=== PATIENT | female | born 1965 | race Caucasian/White ===

== ENCOUNTER 2016-08-11 10:53 | Observation (INO) | payer MEDICARE ==
[2016-08-11] MEDS ORDERED: Sodium Chloride 0.9% 1000 ML 1,000 ML IV SCH (11:30)
[2016-08-11] MEDS: DILAUDID 2 MG INJECTION IV PRN ×3 (11:35→20:49)
[2016-08-11] MEDS: Phenergan 25 MG INJ IV PRN ×2 (11:41→18:09)
[2016-08-11] MEDS ORDERED: NON-FORMULARY ITEM (Gabapentin [Gabapentin] 800 MG) PO PRN (12:15)
[2016-08-11] MEDS ORDERED: PHENERGAN 25 MG PO PRN (12:15)
[2016-08-11] MEDS ORDERED: Neurontin 400 MG PO PRN (12:23)
[2016-08-11] MEDS: solu-MEDROL 40 MG IV SCH ×2 (12:59→21:14)
[2016-08-11] MEDS: Ativan 1 MG PO PRN (12:59)
[2016-08-11 13:19] LABS: BASOPHIL % 0.2 % (0.0-0.4); Eosinophil % 1.9 % (0.00-5.0); Granulocytes % 68.2 % (36.0-66.0); Mean Cell Volume 83.7 fl (78-100); Mean Corpuscular Hemoglobin 27.7 pg (26-32); Mean Platelet Volume 11.4 fl (6-9.5); Monocytes % 5.7 % (0.0-12.0); Platelet Count 227 K/mm3 (150-450); Red Blood Count 5.45 M/mm3 (4.1-5.4); Red Cell Distribution Width 15.3 % (11.5-14.0)
[2016-08-11 13:23] LABS: ALBUMIN 4.1 g/dL (3.4-5.0); ALKALINE PHOSPHATASE 72 U/L (46-116); ANION GAP 15.4 MEQ/L (5-15); BILIRUBIN,TOTAL 0.2 mg/dL (0.2-1.0); BLOOD UREA NITROGEN 13 mg/dL (9-20); CHLORIDE 107 mEq/L (98-107); Carbon Dioxide 22.2 mEq/L (21-32); Glucose 85 MG/DL (70-110); Potassium 3.7 mEq/L (3.5-5.1); SGOT/AST 13 U/L (15-37); SGPT/ALT 7 U/L (12-78); SODIUM 141 mEq/L (136-145)
[2016-08-11 13:28] LABS: Collection Type CCMS
[2016-08-11 13:29] LABS: COMPLETE URINE MICROSCOPIC? YES; Epithelial Cells FEW /HPF (FEW); Mucus SLIGHT /HPF (NEGATIVE); Ph 5.5 (5-6); WBC 0-2 /HPF (0-5)
[2016-08-11] MEDS: Sodium Chloride 0.9% 1000 ML 1,000 ML IV SCH ×2 (13:45→21:14)
[2016-08-12] MEDS: DILAUDID 2 MG INJECTION IV PRN ×6 (00:48→21:18)
[2016-08-12] MEDS: Phenergan 25 MG INJ IV PRN ×4 (00:51→21:20)
[2016-08-12 04:39] VITALS: O2SAT 95
[2016-08-12] MEDS: solu-MEDROL 40 MG IV SCH ×2 (05:09→13:12)
[2016-08-12] MEDS: Sodium Chloride 0.9% 1000 ML 1,000 ML IV SCH ×2 (06:13→13:03)
--- NOTE | 2016-08-12 10:11 | PCM.NOTE ---
Date and Time: 08/12/16 1004 Subjective Assessment: Pt with admitted from office yesterday c/o 3 wks of REHMAN. Today she notes it improves wiht pain meds but then comes right back in a few hours. Has been tolerating po. Objective Exam General Appearance: no apparent distress Neurologic Exam: alert, oriented x 3, cooperative, other (normal motor function throughout) Skin Exam: normal color, warm, dry Respiratory Exam: normal breath sounds, lungs clear, No crackles/rales, No rhonchi, No wheezing Cardiovascular Exam: regular rate/rhythm, normal heart sounds Gastrointestinal/Abdomen Exam: soft, normal bowel sounds, No tenderness Extremity Exam: No pedal edema, No swelling OBJECTIVE DATA Vital Signs: Vital Signs - 24 hr Temp Pulse Resp BP Pulse Ox 08/12/16 06:55 98.4 F 69 18 123/67 95 08/12/16 04:00 97.5 F 69 17 114/64 95 08/12/16 00:00 98.6 F 75 16 121/70 93 L 08/11/16 20:00 97.9 F 90 16 117/68 94 L 08/11/16 16:00 98.2 F 85 18 137/87 93 L 08/11/16 11:14 98.4 F 94 H 137/90 08/11/16 11:10 98.4 F 94 H 137/90 Pain Assessment - Last Documented Pain Intensity 7 Pain Scale Used 0-10 Pain Scale Intake and Output: Intake & Output 08/09/16 08/10/16 08/11/16 08/12/16 11:59 11:59 11:59 11:59 Intake Total 3895 Output Total 900 Balance 2995 Weight 72.529 kg Lab Results: Lab Results-Last 24 Hours 08/11/16 08/11/16 08/11/16 Range/Units 12:54 12:54 13:00 WBC 11.0 H (4.0-10.5) K/mm3 RBC 5.45 H (4.1-5.4) M/mm3 Hgb 15.1 (12.0-16.0) gm/dl Hct 45.6 (35-47) % MCV 83.7 (78-100) fl MCH 27.7 (26-32) pg MCHC 33.1 (32-36) g/dl RDW 15.3 H (11.5-14.0) % Plt Count 227 (150-450) K/mm3 MPV 11.4 H (6-9.5) fl Gran % 68.2 H (36.0-66.0) % Lymphocytes % 24.0 (24.0-44.0) % Monocytes % 5.7 (0.0-12.0) % Eosinophils % 1.9 (0.00-5.0) % Basophils % 0.2 (0.0-0.4) % Basophils # 0.02 (0-0.4) Sodium 141 (136-145) mEq/L Potassium 3.7 (3.5-5.1) mEq/L Chloride 107 (98-107) mEq/L Carbon Dioxide 22.2 (21-32) mEq/L Anion Gap 15.4 H (5-15) MEQ/L BUN 13 (9-20) mg/dL Creatinine 0.86 (0.55-1.30) mg/dl Estimated GFR > 60 ML/MIN Glucose 85 (70-110) MG/DL Calcium 9.1 (8.5-10.1) mg/dL Total Bilirubin 0.2 (0.2-1.0) mg/dL AST 13 L (15-37) U/L ALT 7 L (12-78) U/L Alkaline Phosphatase 72 (46-116) U/L Serum Total Protein 8.0 (6.4-8.2) gm/dL Albumin 4.1 (3.4-5.0) g/dL Ur Collection Type CCMS Urine Color YELLOW (YELLOW) Urine Appearance CLEAR (CLEAR) Urine pH 5.5 (5-6) Ur Specific [place] 1.010 (1.005-1.025) Urine Protein NEGATIVE (Negative) Urine Glucose (UA) NEGATIVE (NEGATIVE) mg/dL Urine Ketones NEGATIVE (NEGATIVE) Urine Nitrite NEGATIVE (NEGATIVE) Urine Bilirubin NEGATIVE (NEGATIVE) Urine Urobilinogen 0.2 (0-1) mg/dL Urine WBC (Auto) NEGATIVE (NEGATIVE) Urine RBC (Auto) SMALL (0-5) Joey/ul Urine Microscopic RBC 0-2 (0-2) /HPF Urine Microscopic WBC 0-2 (0-5) /HPF Ur Epithelial Cells FEW (FEW) /HPF Urine Mucus SLIGHT (NEGATIVE) /HPF Specimen Received 08-11-16 1309 Assessment/Plan (1) Headache Current Visit: No Status: Acute Assessment & Plan: Some improvement, will continue dilaudid, phenergan, and steroids. Pt has chronic REHMAN issues. Code(s): R51 - HEADACHE (2) Multiple sclerosis Current Visit: No Status: Chronic Assessment & Plan: Stable, the steroids often help systemic symptoms including REHMAN. Code(s): G35 - MULTIPLE SCLEROSIS
[2016-08-12] MEDS: Ativan 1 MG PO PRN (17:18)
[2016-08-12 20:34] VITALS: BP 125/61; PULSE 66
== END 2016-08-12 21:35 | disposition home or self-care (01) ==
LOC: MED SURG 10:53
PROVIDERS: ADMIT Family Medicine; ATTEND Family Medicine
DX: G43.909 Migraine, unspecified, not intractable, without status migrainosus (principal); E86.0 Dehydration; G35 Multiple sclerosis; F41.8 Other specified anxiety disorders
CPT/HCPCS: 36415; 80053; 81000; 85025; 93268; G0378; J1170; J2550; J2920

== ENCOUNTER 2017-01-21 12:39 | Observation (INO) | payer MEDICARE ==
[2017-01-21] MEDS: Lactated Ringers 1,000 ML IV SCH ×2 (14:03→21:57)
[2017-01-21] MEDS: Phenergan 25 MG INJ IV PRN ×2 (14:05→20:32)
[2017-01-21] MEDS: DILAUDID 2 MG INJECTION IV PRN ×2 (14:06→20:34)
[2017-01-21 14:32] LABS: BASOPHIL % 0.3 % (0.0-0.4); Eosinophil % 3.3 % (0.00-5.0); Granulocytes % 56.9 % (36.0-66.0); Lymphocytes % 31.6 % (24.0-44.0); Mean Cell Volume 86.2 fl (78-100); Mean Corpuscular Hemoglobin 28.5 pg (26-32); Mean Platelet Volume 11.1 fl (6-9.5); Monocytes % 7.9 % (0.0-12.0); Platelet Count 245 K/mm3 (150-450); Red Blood Count 4.92 M/mm3 (4.1-5.4); Red Cell Distribution Width 15.7 % (11.5-14.0); White Blood Count 7.6 K/mm3 (4.0-10.5)
[2017-01-21 14:59] LABS: ALBUMIN 4.1 g/dL (3.4-5.0); ALKALINE PHOSPHATASE 61 U/L (46-116); ANION GAP 14.3 MEQ/L (5-15); BLOOD UREA NITROGEN 8 mg/dL (9-20); CHLORIDE 104 mEq/L (98-107); Carbon Dioxide 24.1 mEq/L (21-32); Glucose 93 MG/DL (70-110); Potassium 4.6 mEq/L (3.5-5.1); SGOT/AST 15 U/L (15-37); SGPT/ALT 13 U/L (12-78); SODIUM 138 mEq/L (136-145); Total Protein 7.8 gm/dL (6.4-8.2)
[2017-01-21] MEDS ORDERED: NON-FORMULARY ITEM (Gabapentin [Gabapentin] 800 MG) PO SCH (17:00)
[2017-01-21] MEDS: Neurontin 400 MG PO SCH ×2 (17:06→21:58)
[2017-01-21 23:23] LABS: Collection Type CCMS
[2017-01-21 23:24] LABS: Bilirubin NEGATIVE (NEGATIVE); Blood TRACE NON-HEM Ery/ul (0-5); COMPLETE URINE MICROSCOPIC? YES; Epithelial Cells FEW /HPF (FEW); Glucose NEGATIVE (NEGATIVE); Leukocyte Esterase NEGATIVE (NEGATIVE)
[2017-01-22] MEDS: DILAUDID 2 MG INJECTION IV PRN ×5 (04:01→23:56)
[2017-01-22] MEDS: Phenergan 25 MG INJ IV PRN ×4 (04:03→23:53)
[2017-01-22] MEDS: Lactated Ringers 1,000 ML IV SCH ×2 (06:35→15:02)
[2017-01-22] MEDS: Neurontin 400 MG PO SCH ×4 (09:07→20:59)
--- NOTE | 2017-01-22 10:02 | PCM.SSS ---
History of Present Illness - Chief Complaint Chief Complaint: Dehydration, MS, Headaches, Nausea History of Present Illness: is a 51 year old female admitted from office yesterday for REHMAN and dehydration. Has MS. Chronically treated for REHMAN. She is feeling somewhat better this morning. Anaid po well. - Review of Systems Constitutional: Weakness Neurological: Headache Psychological: Anxiety, Depression, No Suicidal Ideations All Other Systems: Reviewed and Negative Medications & Allergies Home Medications: Home Medication List Aspirin/Acetaminophen/Caffeine [Excedrin Migraine Caplet] 2 tab PO Q6H PRN 01/21 [History Confirmed 01/21/17] Gabapentin 800 mg PO QID 01/21/17 [History Confirmed 01/21/17] Oxycodone HCl/Acetaminophen [Percocet 10-325 mg Tablet] 1 each PO TID 01/21/17 [ History Confirmed 01/21/17] Allergies/Adverse Reactions: Allergies Allergy/AdvReac Type Severity Reaction Status Date / Time codeine Allergy Intermediate Itching Verified 08/11/16 11:10 latex Allergy Mild Hives Verified 08/11/16 11:10 zolmitriptan [From Zomig] Allergy Mild HEART RACE Verified 08/11/16 11:10 ketorolac tromethamine Allergy Hives Verified 08/11/16 11:10 [From Toradol] ondansetron HCl [From Zofran] Allergy Swelling Verified 08/11/16 11:10 sumatriptan [From Imitrex] Allergy HEART RACE Verified 08/11/16 11:10 sumatriptan succinate Allergy HEART RACE Verified 08/11/16 11:10 [From Imitrex] - Past Medical History Past Medical History: Yes Neurological History: Migraines, Other ENT History: No Pertinent History Cardiac History: No Pertinent History Respiratory History: Pneumonia Endocrine Medical History: No Pertinent History Musculoskelatal History: Other GI Medical History: No Pertinent History History: No Pertinent History Pyscho-Social History: No Pertinent History Reproductive Disorders: No Pertinent History Comment: MS - Female History Are you now?: No - Past Surgical History Past Surgical History: Yes Neuro Surgical History: No Pertinent History Cardiac History: No Pertinent History Respiratory Surgery: No Pertinent History GI Surgical History: Cholecystectomy Genitourinary Surgical Hx: No Pertinent History Musculskeletal Surgical Hx: No Pertinent History Female Surgical History: No Pertinent History Other Surgical History: removal necrotic tissue from legs and buttocks,2 cvl ports placed and removed,5 picc lines placed and removed ,colonoscopy - Social History Smoking Status: Current every day smoker How long have you smoked: 26 YEARS Exposure to second hand smoke: Yes Alcohol: None Drug Use: none Significant Family History: cancer (M Breast Ca. Father lung ca) - Physical Exam Vital Signs: Vital Signs - 24 hr Temp Pulse Resp BP Pulse Ox 01/22/17 07:06 98 F 62 20 130/60 94 L 01/22/17 04:00 98.6 F 60 18 105/69 98 01/22/17 00:00 98.7 F 60 18 112/74 98 01/21/17 20:00 98.3 F 52 L 18 110/70 98 01/21/17 16:00 98.5 F 62 18 122/74 98 01/21/17 13:00 98.2 F 18 98 General Appearance: no apparent distress Neurologic Exam: alert, oriented x 3, cooperative Eye Exam: eyes nml inspection Neck Exam: normal inspection, supple, full range of motion Respiratory Exam: normal breath sounds, lungs clear, No crackles/rales, No rhonchi, No wheezing Cardiovascular Exam: regular rate/rhythm, normal heart sounds, No murmur Gastrointestinal/Abdomen Exam: soft, normal bowel sounds, tenderness ( generalized, mild), No distention, No mass, No guarding, No rebound Back Exam: normal inspection Extremity Exam: No pedal edema, No swelling Skin Exam: normal color, warm, dry Results - Labs Lab/Micro Results: Lab Results-Last 24 Hours 01/21/17 01/21/17 01/21/17 Range/Units 14:15 14:15 23:00 WBC 7.6 (4.0-10.5) K/mm3 RBC 4.92 (4.1-5.4) M/mm3 Hgb 14.0 (12.0-16.0) gm/dl Hct 42.4 (35-47) % MCV 86.2 (78-100) fl MCH 28.5 (26-32) pg MCHC 33.0 (32-36) g/dl RDW 15.7 H (11.5-14.0) % Plt Count 245 (150-450) K/mm3 MPV 11.1 H (6-9.5) fl Gran % 56.9 (36.0-66.0) % Lymphocytes % 31.6 (24.0-44.0) % Monocytes % 7.9 (0.0-12.0) % Eosinophils % 3.3 (0.00-5.0) % Basophils % 0.3 (0.0-0.4) % Basophils # 0.02 (0-0.4) Sodium 138 (136-145) mEq/L Potassium 4.6 (3.5-5.1) mEq/L Chloride 104 (98-107) mEq/L Carbon Dioxide 24.1 (21-32) mEq/L Anion Gap 14.3 (5-15) MEQ/L BUN 8 L (9-20) mg/dL Creatinine 0.86 (0.55-1.30) mg/dl Estimated GFR > 60 ML/MIN Glucose 93 (70-110) MG/DL Calcium 9.3 (8.5-10.1) mg/dL Total Bilirubin 0.20 (0.2-1.0) mg/dL AST 15 (15-37) U/L ALT 13 (12-78) U/L Alkaline Phosphatase 61 (46-116) U/L Serum Total Protein 7.8 (6.4-8.2) gm/dL Albumin 4.1 (3.4-5.0) g/dL Ur Collection Type CCMS Urine Color YELLOW (YELLOW) Urine Appearance CLEAR (CLEAR) Urine pH 7.0 (5-6) Ur Specific [place] 1.010 (1.005-1.025) Urine Protein NEGATIVE (Negative) Urine Ketones NEGATIVE (NEGATIVE) Urine Blood TRACE NON-HEM (0-5) Joey/ul Urine Nitrite NEGATIVE (NEGATIVE) Urine Bilirubin NEGATIVE (NEGATIVE) Urine Urobilinogen NORMAL (0-1) mg/dL Ur Leukocyte Esterase NEGATIVE (NEGATIVE) Urine Microscopic RBC 0-2 (0-2) /HPF Ur Epithelial Cells FEW (FEW) /HPF Urine Glucose NEGATIVE (NEGATIVE) mg/dL Specimen Received 01-21-17 8441 Assessment/Plan (1) Headache Current Visit: No Status: Acute Qualifiers: Headache type: other headache syndrome Qualified Code(s): G44.89 - Other headache syndrome Assessment & Plan: Some improvement. If she is feeling better later today, can d/c to home but she may need to stay until tomorrow. Code(s): R51 - HEADACHE (2) Dehydration symptoms Current Visit: No Status: Acute Assessment & Plan: improved. Code(s): R63.8 - OTHER SYMPTOMS AND SIGNS CONCERNING FOOD AND FLUID INTAKE (3) Multiple sclerosis Current Visit: No Status: Chronic Assessment & Plan: I think she just overexerted herself over the past 2 weeks. She is sleeping a lot here in hospital. Code(s): G35 - MULTIPLE SCLEROSIS Hospital Summary - Hospital Course Hospital Course: Pt with MS admitted for REHMAN and dehydration - feeling somewhat better this morning, if feeling better this afternoon can d/c to home, otherwise will be discharged tomorrow. - Vitals & Intake/Output Vital Signs: Vital Signs Temperature 98 F 01/22/17 07:06 Pulse Rate 62 01/22/17 07:06 Respiratory Rate 20 01/22/17 07:06 Blood Pressure 130/60 01/22/17 07:06 O2 Sat by Pulse Oximetry 94 L 01/22/17 07:06 Intake & Output: Intake & Output 01/19/17 01/20/17 01/21/17 01/22/17 11:59 11:59 11:59 11:59 Intake Total 2302 Output Total 300 Balance 2001 Weight 69.853 kg - Lab Result Diagrams: 01/21/17 14:15 01/21/17 14:15 Lab Results-Last 24 Hrs: Lab Results-Last 24 Hours 01/21/17 01/21/17 01/21/17 Range/Units 14:15 14:15 23:00 WBC 7.6 (4.0-10.5) K/mm3 RBC 4.92 (4.1-5.4) M/mm3 Hgb 14.0 (12.0-16.0) gm/dl Hct 42.4 (35-47) % MCV 86.2 (78-100) fl MCH 28.5 (26-32) pg MCHC 33.0 (32-36) g/dl RDW 15.7 H (11.5-14.0) % Plt Count 245 (150-450) K/mm3 MPV 11.1 H (6-9.5) fl Gran % 56.9 (36.0-66.0) % Lymphocytes % 31.6 (24.0-44.0) % Monocytes % 7.9 (0.0-12.0) % Eosinophils % 3.3 (0.00-5.0) % Basophils % 0.3 (0.0-0.4) % Basophils # 0.02 (0-0.4) Sodium 138 (136-145) mEq/L Potassium 4.6 (3.5-5.1) mEq/L Chloride 104 (98-107) mEq/L Carbon Dioxide 24.1 (21-32) mEq/L Anion Gap 14.3 (5-15) MEQ/L BUN 8 L (9-20) mg/dL Creatinine 0.86 (0.55-1.30) mg/dl Estimated GFR > 60 ML/MIN Glucose 93 (70-110) MG/DL Calcium 9.3 (8.5-10.1) mg/dL Total Bilirubin 0.20 (0.2-1.0) mg/dL AST 15 (15-37) U/L ALT 13 (12-78) U/L Alkaline Phosphatase 61 (46-116) U/L Serum Total Protein 7.8 (6.4-8.2) gm/dL Albumin 4.1 (3.4-5.0) g/dL Ur Collection Type CCMS Urine Color YELLOW (YELLOW) Urine Appearance CLEAR (CLEAR) Urine pH 7.0 (5-6) Ur Specific [place] 1.010 (1.005-1.025) Urine Protein NEGATIVE (Negative) Urine Ketones NEGATIVE (NEGATIVE) Urine Blood TRACE NON-HEM (0-5) Joey/ul Urine Nitrite NEGATIVE (NEGATIVE) Urine Bilirubin NEGATIVE (NEGATIVE) Urine Urobilinogen NORMAL (0-1) mg/dL Ur Leukocyte Esterase NEGATIVE (NEGATIVE) Urine Microscopic RBC 0-2 (0-2) /HPF Ur Epithelial Cells FEW (FEW) /HPF Urine Glucose NEGATIVE (NEGATIVE) mg/dL Specimen Received 01-21-17 2320 - Discharge Disposition: Home, Self-Care Condition: Stable Prescriptions: No Action Gabapentin 800 mg PO QID Oxycodone HCl/Acetaminophen [Percocet 10-325 mg Tablet] 1 each PO TID Aspirin/Acetaminophen/Caffeine [Excedrin Migraine Caplet] 2 tab PO Q6H PRN PRN Reason: Migraines
[2017-01-23] MEDS: Lactated Ringers 1,000 ML IV SCH
[2017-01-23] MEDS: Phenergan 25 MG INJ IV PRN (06:35)
[2017-01-23] MEDS: DILAUDID 2 MG INJECTION IV PRN (06:38)
[2017-01-23] MEDS: Neurontin 400 MG PO SCH (08:25)
--- NOTE | 2017-01-23 11:15 | PCM.DS ---
Discharge Summary Date of Admission: 01/21/17 12:39 Admitting Physician: MATT ALLISON Primary Care Provider: MATT ALLISON Allergies Allergies codeine Allergy (Intermediate, Verified 08/11/16 11:10) Itching latex Allergy (Mild, Verified 08/11/16 11:10) Hives zolmitriptan [From Zomig] Allergy (Mild, Verified 08/11/16 11:10) HEART RACE ketorolac tromethamine [From Toradol] Allergy (Verified 08/11/16 11:10) Hives ondansetron HCl [From Zofran] Allergy (Verified 08/11/16 11:10) Swelling sumatriptan [From Imitrex] Allergy (Verified 08/11/16 11:10) HEART RACE POUNDING HEART sumatriptan succinate [From Imitrex] Allergy (Verified 08/11/16 11:10) HEART RACE [facility] Summary - Hospital Course Hospital Course: Pt admitted from office wiht severe REHMAN, this happens chronically, and some early dehydration. She has been quite fatigued, has slept throughout her stay here. She is always awake when I come to examine her, however. Her REHMAN is better today. Tolerating po. Urinating well. Up walking to the bathroom wihtout issues. She has MS and was very active over the past 2 weeks. - Vitals & Intake/Output Vital Signs: Vital Signs Temperature 97.7 F 01/23/17 07:23 Pulse Rate 61 01/23/17 07:23 Respiratory Rate 18 01/23/17 07:23 Blood Pressure 133/66 01/23/17 07:23 O2 Sat by Pulse Oximetry 95 01/23/17 07:23 Intake & Output: Intake & Output 01/20/17 01/21/17 01/22/17 01/23/17 11:59 11:59 11:59 11:59 Intake Total 2302 4527 Output Total 300 800 Balance 2001 3726 Weight 69.853 kg - Lab Result Diagrams: 01/21/17 14:15 01/21/17 14:15 Discharge Exam General Appearance: no apparent distress Neurologic Exam: alert, oriented x 3, cooperative Skin Exam: normal color, warm, dry Respiratory Exam: normal breath sounds, lungs clear, No crackles/rales, No rhonchi, No wheezing Cardiovascular Exam: regular rate/rhythm, normal heart sounds, No murmur Gastrointestinal/Abdomen Exam: soft, normal bowel sounds, tenderness ( generalized), No distention, No mass, No guarding, No rebound Extremity Exam: No pedal edema, No swelling Back Exam: normal inspection Final Diagnosis/Problem List - Final Discharge Diagnosis/Problem (1) Headache Current Visit: No Status: Acute Assessment & Plan: Improved. home on home meds today. Advised get plenty of rest. I think she just increased her activity too much over the past 2 weeks and in light of her MS she needs extra rest. She has had her last dose of pain med at 0638 this morning; I discussed with pharmacy and we believe pt will be stable to drive home around noon. (2) Dehydration symptoms Current Visit: No Status: Resolved (3) Multiple sclerosis Current Visit: No Status: Chronic Assessment & Plan: Extra rest as detailed above. - Discharge Disposition: Home, Self-Care Condition: Stable Prescriptions: Continue Gabapentin 800 mg PO QID Oxycodone HCl/Acetaminophen [Percocet 10-325 mg Tablet] 1 each PO TID Aspirin/Acetaminophen/Caffeine [Excedrin Migraine Caplet] 2 tab PO Q6H PRN PRN Reason: Migraines Follow up with: MATT ALLISON [Primary Care Provider] - 02/01/17 9:15 am Forms: Patient Portal Information
[2017-01-23 12:00] VITALS: BP 130/77; PULSE 65; O2SAT 94
== END 2017-01-23 12:00 | disposition home or self-care (01) ==
LOC: MED SURG 12:39
PROVIDERS: ADMIT Family Medicine; ATTEND Family Medicine
DX: R51 Headache (principal); E86.0 Dehydration; G35 Multiple sclerosis; F41.8 Other specified anxiety disorders
CPT/HCPCS: 36415; 80053; 81000; 85025; 93268; G0378; J1170; J2550; A9270-GY

== ENCOUNTER 2017-07-29 13:02 | Observation (INO) | payer MEDICARE, OTHER ==
[2017-07-29] MEDS ORDERED: Lactated Ringers 1,000 ML IV SCH (14:00)
[2017-07-29] MEDS ORDERED: Phenergan 25 MG INJ IV ONE (14:00)
[2017-07-29] MEDS ORDERED: DILAUDID 2 MG INJECTION IV ONE (14:00)
[2017-07-29] MEDS: Lactated Ringers 1,000 ML IV SCH ×2 (14:17→23:53)
[2017-07-29 14:18] LABS: BASOPHIL % 0.5 % (0.0-0.4); Basophil (Absolute #) 0.04 (0-0.4); Eosinophil % 1.7 % (0.00-5.0); Eosinophil (Absolute #) 0.13 (0-0.5); Granulocyte Absolute (ANC) 4.65 (1.4-6.9); Granulocytes % 61.8 % (36.0-66.0); Hematocrit 40.1 % (35-47); Hemoglobin 13.1 gm/dl (12.0-16.0); Lymphocyte (Absolute #) 2.03 (1.0-4.6); Mean Cell Volume 88.7 fl (78-100); Mean Corpuscular Hgb Concent. 32.7 g/dl (32-36); Mean Platelet Volume 11.7 fl (6-9.5); Monocyte (Absolute #) 0.68 (0.0-1.3); Platelet Count 240 K/mm3 (150-450); Red Blood Count 4.52 M/mm3 (4.1-5.4); White Blood Count 7.5 K/mm3 (4.0-10.5)
[2017-07-29 14:28] LABS: ALBUMIN 3.6 g/dL (3.4-5.0); ALKALINE PHOSPHATASE 59 U/L (46-116); ANION GAP 11.6 MEQ/L (5-15); BLOOD UREA NITROGEN 14 mg/dL (9-20); CHLORIDE 106 mEq/L (98-107); Calcium 8.8 mg/dL (8.5-10.1); Creatinine 1 0.72 mg/dl (0.55-1.30); EST GLOMERULAR FILTRATION RATE > 60 ML/MIN; Glucose 89 MG/DL (70-110); Potassium 3.5 mEq/L (3.5-5.1); SGOT/AST 20 U/L (15-37); SGPT/ALT 14 U/L (12-78); SODIUM 139 mEq/L (136-145); Total Protein 7.3 gm/dL (6.4-8.2)
[2017-07-29] MEDS ORDERED: NON-FORMULARY ITEM (Gabapentin [Gabapentin] 800 MG) PO SCH (17:00)
[2017-07-29] MEDS: Neurontin 400 MG PO SCH ×2 (17:26→21:00)
[2017-07-29 19:57] VITALS: O2SAT 94
[2017-07-29] MEDS: DILAUDID 2 MG INJECTION IV PRN (21:01)
[2017-07-29] MEDS: Phenergan 25 MG INJ IV PRN (21:01)
[2017-07-29] MEDS ORDERED: Effexor XR 75 MG PO SCH (22:00)
[2017-07-29] MEDS ORDERED: NON-FORMULARY ITEM (Venlafaxine Hcl [Effexor] 75 MG) PO SCH (22:00)
[2017-07-30] MEDS: Phenergan 25 MG INJ IV PRN ×2 (01:17→05:46)
[2017-07-30] MEDS: DILAUDID 2 MG INJECTION IV PRN ×4 (01:18→14:33)
[2017-07-30] MEDS: Lactated Ringers 1,000 ML IV SCH (07:48)
[2017-07-30] MEDS ORDERED: solu-MEDROL 125 MG IV ONE (09:07)
--- NOTE | 2017-07-30 09:07 | PCM.NOTE ---
Date and Time: 07/30/17903 Subjective Assessment: Pt still c/o REHMAN, better with dilaudid temporarily. Sravanthi po. Objective Exam General Appearance: mild distress, alert Neurologic Exam: oriented x 3, cooperative Skin Exam: normal color, warm, dry, No rash Respiratory Exam: normal breath sounds, lungs clear, No crackles/rales, No rhonchi, No wheezing Cardiovascular Exam: regular rate/rhythm, normal heart sounds, No murmur Extremity Exam: normal inspection OBJECTIVE DATA Vital Signs: Vital Signs - 24 hr Temp Pulse Resp BP Pulse Ox 07/30/17 08:07 98.0 F 63 20 117/73 94 L 07/30/17 04:28 98.1 F 77 20 118/65 94 L 07/29/17 23:56 98.2 F 70 18 124/60 94 L 07/29/17 19:55 98.0 F 71 18 123/65 94 L 07/29/17 16:59 97.8 F 70 16 132/60 97 07/29/17 13:40 97.5 F 72 167/72 07/29/17 13:33 97.5 F 72 16 167/72 96 07/29/17 13:19 97.5 F 72 16 167/72 96 Pain Assessment - Last Documented Pain Intensity 6 Pain Scale Used 0-10 Pain Scale,FLACC Intake and Output: Intake & Output 07/27/17 07/28/17 07/29/17 07/30/17 11:59 11:59 11:59 11:59 Intake Total 3308 Output Total 1160 Balance 2148 Weight 68.9 kg Lab Results: Lab Results-Last 24 Hours 07/29/17 07/29/17 Range/Units 13:52 13:52 WBC 7.5 (4.0-10.5) K/mm3 RBC 4.52 (4.1-5.4) M/mm3 Hgb 13.1 (12.0-16.0) gm/dl Hct 40.1 (35-47) % MCV 88.7 (78-100) fl MCH 29.0 (26-32) pg MCHC 32.7 (32-36) g/dl RDW 15.0 H (11.5-14.0) % Plt Count 240 (150-450) K/mm3 MPV 11.7 H (6-9.5) fl Gran % 61.8 (36.0-66.0) % Lymphocytes % 27.0 (24.0-44.0) % Monocytes % 9.0 (0.0-12.0) % Eosinophils % 1.7 (0.00-5.0) % Basophils % 0.5 (0.0-0.4) % Basophils # 0.04 (0-0.4) Sodium 139 (136-145) mEq/L Potassium 3.5 (3.5-5.1) mEq/L Chloride 106 (98-107) mEq/L Carbon Dioxide 25.0 (21-32) mEq/L Anion Gap 11.6 (5-15) MEQ/L BUN 14 (9-20) mg/dL Creatinine 0.72 (0.55-1.30) mg/dl Estimated GFR > 60 ML/MIN Glucose 89 (70-110) MG/DL Calcium 8.8 (8.5-10.1) mg/dL Total Bilirubin 0.20 (0.2-1.0) mg/dL AST 20 (15-37) U/L ALT 14 (12-78) U/L Alkaline Phosphatase 59 (46-116) U/L Serum Total Protein 7.3 (6.4-8.2) gm/dL Albumin 3.6 (3.4-5.0) g/dL Assessment/Plan (1) Intractable migraine Current Visit: Yes Status: Acute Qualifiers: Migraine type: without aura Status migrainosus presence: with status migrainosus Qualified Code(s): G43.011 - Migraine without aura, intractable, with status migrainosus Assessment & Plan: WIll change from phenergan to compazine and add some steroid, this has helped her in the past. Code(s): G43.919 - MIGRAINE, UNSP, INTRACTABLE, WITHOUT STATUS MIGRAINOSUS (2) Dehydration symptoms Current Visit: Yes Status: Acute Assessment & Plan: resolved Code(s): R63.8 - OTHER SYMPTOMS AND SIGNS CONCERNING FOOD AND FLUID INTAKE (3) Multiple sclerosis Current Visit: No Status: Chronic Code(s): G35 - MULTIPLE SCLEROSIS
[2017-07-30] MEDS: Neurontin 400 MG PO SCH ×2 (09:12→12:26)
[2017-07-30] MEDS: Compazine 5 MG PO PRN ×2 (09:44→16:03)
[2017-07-30 11:57] VITALS: BP 116/69; PULSE 62
== END 2017-07-30 16:15 | disposition home or self-care (01) ==
LOC: MED SURG 13:02
PROVIDERS: ADMIT Family Medicine; ATTEND Family Medicine
DX: G43.011 Migraine without aura, intractable, with status migrainosus (principal); R63.8 Other symptoms and signs concerning food and fluid intake; G35 Multiple sclerosis; F41.9 Anxiety disorder, unspecified; F32.9 Major depressive disorder, single episode, unspecified; G47.00 Insomnia, unspecified; Z79.899 Other long term (current) drug therapy
CPT/HCPCS: 36415; 80053; 85025; 93268; G0378; J1170; J2550; J2930; A9270-GY

== ENCOUNTER 2017-12-10 12:59 | Observation (INO) | payer OTHER, MEDICARE ==
[2017-12-10] MEDS ORDERED: Sodium Chloride 0.9% 1000 ML 1,000 ML IV SCH (13:15)
[2017-12-10] MEDS ORDERED: DILAUDID 2 MG INJECTION IV ONE (13:15)
[2017-12-10] MEDS: Phenergan 25 MG INJ IV PRN ×2 (14:09→20:14)
[2017-12-10 14:23] LABS: BASOPHIL % 0.1 % (0.0-0.4); Basophil (Absolute #) 0.02 (0-0.4); Eosinophil % 0.1 % (0.00-5.0); Eosinophil (Absolute #) 0.01 (0-0.5); Granulocyte Absolute (ANC) 13.01 (1.4-6.9); Granulocytes % 81.6 % (36.0-66.0); Hematocrit 42.9 % (35-47); Hemoglobin 14.5 gm/dl (12.0-16.0); Lymphocyte (Absolute #) 1.75 (1.0-4.6); Mean Corpuscular Hemoglobin 29.4 pg (26-32); Mean Corpuscular Hgb Concent. 33.8 g/dl (32-36); Monocyte (Absolute #) 1.14 (0.0-1.3); Monocytes % 7.2 % (0.0-12.0); Platelet Count 229 K/mm3 (150-450); Red Blood Count 4.93 M/mm3 (4.1-5.4); Red Cell Distribution Width 15.4 % (11.5-14.0); White Blood Count 15.9 K/mm3 (4.0-10.5)
[2017-12-10 15:05] LABS: ALBUMIN 4.2 g/dL (3.5-5.0); ALKALINE PHOSPHATASE 54 U/L (38-126); ANION GAP 14.1 MEQ/L (5-15); BLOOD UREA NITROGEN 12 mg/dL (7-17); CHLORIDE 107 mmol/L (98-107); Calcium 9.7 mg/dL (8.4-10.2); Carbon Dioxide 23 mmol/L (22-30); Creatinine 1 0.71 mg/dL (0.52-1.04); Glucose 113 mg/dL (74-106); Potassium 3.9 mmol/L (3.5-5.1); SGOT/AST 26 U/L (14-36); SGPT/ALT 14 U/L (0-35); SODIUM 141 mmol/L (137-145); Total Protein 7.4 g/dL (6.3-8.2)
[2017-12-10] MEDS: DILAUDID 2 MG INJECTION IV PRN ×3 (15:14→23:09)
[2017-12-10] MEDS: Compazine 5 MG PO PRN (15:36)
--- NOTE | 2017-12-10 15:36 | PCM.HP ---
History of Present Illness - Chief Complaint Chief Complaint: Intractable Headache History of Present Illness: is a 52 year old female pt of mine from [facility] with MS and recurrent migraine who c/o some rodrigues for 2 weeks, constant headache for the lsat 5 days. She thinks it is related to stress, she just had an auction 2 weeks ago and has a sister on hospice. She has not had fever or paresthesias. Not tolerating solids well but trying to drink liquids. Urinated upon admission. IV access was difficult here. After 1.5mg IV dilaudid she reported pain from 02/04 to 01/04. - Review of Systems Abdominal/Gastrointestinal: Nausea Neurological: Headache Psychological: Anxiety, No Suicidal Ideations All Other Systems: Reviewed and Negative Medications & Allergies Home Medications: Home Medication List Aspirin/Acetaminophen/Caffeine [Excedrin Migraine Caplet] 2 tab PO Q6H PRN 01/21 [History Confirmed 12/10/17] Gabapentin 800 mg PO QID 01/21/17 [History Confirmed 12/10/17] Buspirone HCl 5 mg [Buspar 5 mg] 5 mg PO BID 12/10/17 [History Confirmed 12/10/17] Clonazepam 0.5 mg [Klonopin 0.5 MG] 0.5 mg PO UD PRN 12/10/17 [History Confirmed 12/10/17] Hydrocodone Bit/Acetaminophen [[place] 10-325 Tablet] 1 each PO TID 12/10/17 [ History Confirmed 12/10/17] Allergies/Adverse Reactions: Allergies Allergy/AdvReac Type Severity Reaction Status Date / Time codeine Allergy Intermediate Itching Verified 08/11/16 11:10 latex Allergy Mild Hives Verified 08/11/16 11:10 zolmitriptan [From Zomig] Allergy Mild HEART RACE Verified 08/11/16 11:10 ketorolac tromethamine Allergy Hives Verified 08/11/16 11:10 [From Toradol] ondansetron HCl [From Zofran] Allergy Swelling Verified 08/11/16 11:10 sumatriptan [From Imitrex] Allergy HEART RACE Verified 08/11/16 11:10 sumatriptan succinate Allergy HEART RACE Verified 08/11/16 11:10 [From Imitrex] - Past Medical History Past Medical History: Yes Neurological History: Migraines, Other ENT History: No Pertinent History Cardiac History: No Pertinent History Respiratory History: Pneumonia Endocrine Medical History: No Pertinent History Musculoskelatal History: Other GI Medical History: No Pertinent History History: No Pertinent History Pyscho-Social History: Depression Reproductive Disorders: No Pertinent History Comment: "irritable". - Female History Hx Last Menstrual Period: 12/09 Are you now?: No - Past Surgical History Past Surgical History: Yes Neuro Surgical History: No Pertinent History Cardiac History: No Pertinent History Respiratory Surgery: No Pertinent History GI Surgical History: Cholecystectomy Genitourinary Surgical Hx: No Pertinent History Musculskeletal Surgical Hx: No Pertinent History Female Surgical History: No Pertinent History Other Surgical History: removal necrotic tissue from legs and buttocks,2 cvl ports placed and removed,5 picc lines placed and removed ,colonoscopy - Social History Smoking Status: Current every day smoker How long have you smoked: 26 YEARS Exposure to second hand smoke: No Alcohol: None Drug Use: none Significant Family History: cancer (M Breast Ca. Father lung ca) - Physical Exam Vital Signs: Vital Signs - 24 hr Temp Pulse Resp BP Pulse Ox 12/10/17 13:43 98 F 100 H 20 125/75 97 12/10/17 13:39 98 F 100 H 20 125/75 97 General Appearance: mild distress, alert Neurologic Exam: oriented x 3, cooperative, other (CN III-XII intact bilat) Eye Exam: eyes nml inspection Ears, Nose, Throat Exam: moist mucous membranes Neck Exam: normal inspection, non-tender, No lymphadenopathy Respiratory Exam: normal breath sounds, lungs clear, No crackles/rales, No rhonchi, No wheezing Cardiovascular Exam: regular rate/rhythm, normal heart sounds, No murmur Gastrointestinal/Abdomen Exam: soft, normal bowel sounds, No tenderness, No distention, No mass, No guarding, No rebound Extremity Exam: normal inspection, No pedal edema, No swelling Skin Exam: normal color, warm, dry, No rash Results - Labs Lab/Micro Results: Lab Results-Last 24 Hours 12/10/17 12/10/17 Range/Units 14:19 14:19 WBC 15.9 H (4.0-10.5) K/mm3 RBC 4.93 (4.1-5.4) M/mm3 Hgb 14.5 (12.0-16.0) gm/dl Hct 42.9 (35-47) % MCV 87.0 (78-100) fl MCH 29.4 (26-32) pg MCHC 33.8 (32-36) g/dl RDW 15.4 H (11.5-14.0) % Plt Count 229 (150-450) K/mm3 MPV 11.0 H (6-9.5) fl Gran % 81.6 H (36.0-66.0) % Eos # (Auto) 0.01 (0-0.5) Absolute Lymphs (auto) 1.75 (1.0-4.6) Absolute Monos (auto) 1.14 (0.0-1.3) Lymphocytes % 11.0 L (24.0-44.0) % Monocytes % 7.2 (0.0-12.0) % Eosinophils % 0.1 (0.00-5.0) % Basophils % 0.1 (0.0-0.4) % Absolute Granulocytes 13.01 H (1.4-6.9) Basophils # 0.02 (0-0.4) Sodium 141 (137-145) mmol/L Potassium 3.9 (3.5-5.1) mmol/L Chloride 107 (98-107) mmol/L Carbon Dioxide 23 (22-30) mmol/L Anion Gap 14.1 (5-15) MEQ/L BUN 12 (7-17) mg/dL Creatinine 0.71 (0.52-1.04) mg/dL Estimated GFR > 60.0 ML/MIN Glucose 113 H (74-106) mg/dL Calcium 9.7 (8.4-10.2) mg/dL Total Bilirubin 0.20 (0.2-1.3) mg/dL AST 26 (14-36) U/L ALT 14 (0-35) U/L Alkaline Phosphatase 54 (38-126) U/L Serum Total Protein 7.4 (6.3-8.2) g/dL Albumin 4.2 (3.5-5.0) g/dL Assessment/Plan (1) Status migrainosus Current Visit: Yes Status: Acute Assessment & Plan: repleting fluids. On IV dilaudid, phenergan. Trying po compazine prn. CLD. Code(s): G43.901 - MIGRAINE, UNSP, NOT INTRACTABLE, WITH STATUS MIGRAINOSUS (2) Multiple sclerosis Current Visit: No Status: Chronic Code(s): G35 - MULTIPLE SCLEROSIS (3) Leukocytosis Current Visit: Yes Status: Acute Assessment & Plan: Likely due to the betamethasone 6mg injection she received in office yesterday. Code(s): D72.829 - ELEVATED WHITE BLOOD CELL COUNT, UNSPECIFIED
[2017-12-10] MEDS ORDERED: Klonopin 0.5 MG PO PRN (15:56)
[2017-12-10] MEDS: Neurontin 400 MG PO SCH ×2 (16:26→22:05)
[2017-12-10] MEDS: Lactated Ringers 1,000 ML IV SCH (16:26)
[2017-12-10] MEDS ORDERED: NON-FORMULARY ITEM (Gabapentin [Gabapentin] 800 MG) PO SCH (17:00)
[2017-12-10] MEDS: BUSPAR 5 MG PO SCH (22:05)
[2017-12-10 22:08] LABS: Appearance CLEAR (CLEAR); Bilirubin NEGATIVE (NEGATIVE); Blood 50 Ery/ul (0-5); Glucose NEGATIVE (NEGATIVE); Ketones NEGATIVE (NEGATIVE); Leukocyte Esterase TRACE (NEGATIVE); Nitrite NEGATIVE (NEGATIVE); Protein,Urine Dip NEGATIVE (Negative); Urobilinogen NORMAL mg/dL (0-1)
[2017-12-10 22:09] LABS: Bacteria RARE /HPF (NEGATIVE); Epithelial Cells RARE /HPF (FEW); WBC 0-2 /HPF (0-5)
[2017-12-11] MEDS: Lactated Ringers 1,000 ML IV SCH ×2 (00:59→09:07)
[2017-12-11] MEDS: DILAUDID 2 MG INJECTION IV PRN ×5 (04:04→21:06)
[2017-12-11] MEDS: Phenergan 25 MG INJ IV PRN ×4 (04:04→22:45)
[2017-12-11] MEDS: Neurontin 400 MG PO SCH ×4 (08:09→21:06)
[2017-12-11] MEDS: BUSPAR 5 MG PO SCH ×2 (08:09→21:06)
[2017-12-11] MEDS: Compazine 5 MG PO PRN (09:07)
[2017-12-12] MEDS: DILAUDID 2 MG INJECTION IV PRN ×3 (01:09→09:30)
[2017-12-12] MEDS: Phenergan 25 MG INJ IV PRN ×2 (05:11→11:36)
[2017-12-12] MEDS: BUSPAR 5 MG PO SCH (09:30)
[2017-12-12] MEDS: Neurontin 400 MG PO SCH (09:30)
[2017-12-12 11:43] VITALS: BP 120/61; PULSE 66; O2SAT 96
--- NOTE | 2017-12-12 11:43 | PCM.DCORD ---
- Discharge Discharge Date: 12/12/17 Disposition: Home, Self-Care Condition: Stable Prescriptions: Continue Gabapentin 800 mg PO QID Aspirin/Acetaminophen/Caffeine [Excedrin Migraine Caplet] 2 tab PO Q6H PRN PRN Reason: Migraines Hydrocodone Bit/Acetaminophen [[place] 10-325 Tablet] 1 each PO TID Buspirone HCl 5 mg [Buspar 5 mg] 5 mg PO BID Clonazepam 0.5 mg [Klonopin 0.5 MG] 0.5 mg PO UD PRN PRN Reason: Anxiety Follow up with: MATT ALLISON [Primary Care Provider] - 1 Week
--- NOTE | 2017-12-12 17:31 | PCM.NOTE ---
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 Skin Exam: warm, dry Eye Exam: No scleral icterus Ears, Nose, Throat Exam: moist mucous membranes Neck Exam: supple, full range of motion Respiratory Exam: normal breath sounds, lungs clear Cardiovascular Exam: regular rate/rhythm, normal heart sounds OBJECTIVE DATA Vital Signs: Vital Signs - 24 hr Temp Pulse Resp BP Pulse Ox 12/12/17 11:41 97.9 F 66 18 120/61 96 12/12/17 07:08 98.1 F 68 18 168/53 95 12/12/17 04:00 98.5 F 77 18 124/63 97 12/12/17 00:00 97.9 F 72 18 115/57 95 12/11/17 20:00 98.0 F 79 17 125/57 94 L Pain Assessment - Last Documented Pain Intensity 7 Pain Scale Used 0-10 Pain Scale,FLACC Intake and Output: Intake & Output 12/10/17 12/11/17 12/12/17 12/13/17 11:59 11:59 11:59 11:59 Intake Total 3376 2860 Output Total 1100 1000 Balance 2276 1860 Weight 71 kg Assessment/Plan (1) Intractable migraine Status: Acute Qualifiers: Migraine type: without aura Status migrainosus presence: with status migrainosus Qualified Code(s): G43.011 - Migraine without aura, intractable, with status migrainosus Assessment & Plan: continue current therapeutic rest and analgesic hopeful for home today or in am Code(s): G43.919 - MIGRAINE, UNSP, INTRACTABLE, WITHOUT STATUS MIGRAINOSUS (2) Multiple sclerosis Status: Chronic Code(s): G35 - MULTIPLE SCLEROSIS
--- NOTE | 2017-12-12 17:34 | PCM.DS ---
Discharge Summary Date of Admission: 12/10/17 13:26 Date of Discharge: 12/12/17 Admitting Physician: MATT ALLISON Primary Care Provider: MATT ALLISON Allergies Allergies codeine Allergy (Intermediate, Verified 08/11/16 11:10) Itching latex Allergy (Mild, Verified 08/11/16 11:10) Hives zolmitriptan [From Zomig] Allergy (Mild, Verified 08/11/16 11:10) HEART RACE ketorolac tromethamine [From Toradol] Allergy (Verified 08/11/16 11:10) Hives ondansetron HCl [From Zofran] Allergy (Verified 08/11/16 11:10) Swelling sumatriptan [From Imitrex] Allergy (Verified 08/11/16 11:10) HEART RACE [facility] sumatriptan succinate [From Imitrex] Allergy (Verified 08/11/16 11:10) [facility] Summary - Hospital Course Hospital Course: She was admitted after failed outpatient therapy of her severe migraine with intractable symptoms. She had leukocytosis without fever suspected secondary to recent steroid trial to break migraine. After iv opiates she was able to rest and pain improved and she felt comfortable with discharge on 12/12 with headache improved and just with her post migraine fatigue at time of discharge. - Vitals & Intake/Output Vital Signs: Vital Signs Temperature 97.9 F 12/12/17 11:41 Pulse Rate 66 12/12/17 11:41 Respiratory Rate 18 12/12/17 11:41 Blood Pressure 120/61 12/12/17 11:41 O2 Sat by Pulse Oximetry 96 12/12/17 11:41 Intake & Output: Intake & Output 12/10/17 12/11/17 12/12/17 12/13/17 11:59 11:59 11:59 11:59 Intake Total 3376 2860 Output Total 1100 1000 Balance 2276 1860 Weight 71 kg - Lab Result Diagrams: 12/10/17 14:19 12/10/17 14:19 - Procedures and Test Procedures and Tests throughout Hospitalization: Therapy Orders & Screens 12/10/17 14:09 Smoking Cessation Education ONCE Comment: Diagnosis: Intractable Headache Smoking Status: Current every day smoker How long have you smoked: 26 YEARS Have you smoked in the past 12 months: Yes Approximately how many cigarettes per day: 22 Do you dip or chew tobacco: No Discharge Exam General Appearance: no apparent distress, alert Neurologic Exam: alert, oriented x 3, cooperative, normal mood/affect, nml cerebellar function, sensation nml, No motor deficits Skin Exam: normal color, warm, dry Eye Exam: PERRL, EOMI, eyes nml inspection Ears, Nose, Throat Exam: normal ENT inspection, pharynx normal, moist mucous membranes Neck Exam: normal inspection, non-tender, supple, full range of motion Respiratory Exam: normal breath sounds, lungs clear, No respiratory distress Cardiovascular Exam: regular rate/rhythm, normal heart sounds Gastrointestinal/Abdomen Exam: soft, No tenderness, No mass Extremity Exam: normal inspection, normal range of motion Back Exam: normal inspection, normal range of motion, No CVA tenderness, No vertebral tenderness Pelvic Exam: deferred Rectal Exam: deferred Final Diagnosis/Problem List - Final Discharge Diagnosis/Problem (1) Intractable migraine Status: Acute (2) Multiple sclerosis Status: Chronic - Discharge Disposition: Home, Self-Care Condition: Stable Prescriptions: Continue Gabapentin 800 mg PO QID Aspirin/Acetaminophen/Caffeine [Excedrin Migraine Caplet] 2 tab PO Q6H PRN PRN Reason: Migraines Hydrocodone Bit/Acetaminophen [[place] 10-325 Tablet] 1 each PO TID Buspirone HCl 5 mg [Buspar 5 mg] 5 mg PO BID Clonazepam 0.5 mg [Klonopin 0.5 MG] 0.5 mg PO UD PRN PRN Reason: Anxiety Instructions: Migraine Headache (DC) Follow up with: MATT ALLISON [Primary Care Provider] - 1 Week Forms: Discharge Instructions
== END 2017-12-12 12:45 | disposition home or self-care (01) ==
LOC: MED SURG 13:26
PROVIDERS: ADMIT Family Medicine; ATTEND Family Medicine
DX: G43.901 Migraine, unspecified, not intractable, with status migrainosus (principal); G35 Multiple sclerosis; D72.829 Elevated white blood cell count, unspecified
CPT/HCPCS: 36415; 80053; 81000; 85025; 93268; G0378; J1170; J2550; A9270-GY

== ENCOUNTER 2018-01-18 15:05 | Observation (INO) | payer OTHER, MEDICARE ==
[2018-01-18] MEDS: DILAUDID 2 MG INJECTION IV PRN (17:03)
[2018-01-18] MEDS: Phenergan 25 MG INJ IV PRN ×2 (17:04→23:27)
[2018-01-18 17:07] LABS: BASOPHIL % 0.5 % (0.0-0.4); Basophil (Absolute #) 0.04 (0-0.4); Eosinophil % 1.2 % (0.00-5.0); Granulocyte Absolute (ANC) 5.02 (1.4-6.9); Granulocytes % 59.3 % (36.0-66.0); Hematocrit 42.9 % (35-47); Hemoglobin 14.5 gm/dl (12.0-16.0); Lymphocyte (Absolute #) 2.67 (1.0-4.6); Lymphocytes % 31.6 % (24.0-44.0); Mean Cell Volume 86.1 fl (78-100); Mean Corpuscular Hemoglobin 29.1 pg (26-32); Mean Corpuscular Hgb Concent. 33.8 g/dl (32-36); Mean Platelet Volume 10.7 fl (6-9.5); Monocyte (Absolute #) 0.63 (0.0-1.3); Monocytes % 7.4 % (0.0-12.0); Platelet Count 260 K/mm3 (150-450); Red Blood Count 4.98 M/mm3 (4.1-5.4); White Blood Count 8.5 K/mm3 (4.0-10.5)
[2018-01-18 17:13] LABS: ALBUMIN 4.2 g/dL (3.5-5.0); ALKALINE PHOSPHATASE 62 U/L (38-126); ANION GAP 12.6 MEQ/L (5-15); BLOOD UREA NITROGEN 11 mg/dL (7-17); CHLORIDE 108 mmol/L (98-107); Calcium 9.1 mg/dL (8.4-10.2); Carbon Dioxide 25 mmol/L (22-30); Creatinine 1 0.82 mg/dL (0.52-1.04); Glucose 89 mg/dL (74-106); Potassium 4.2 mmol/L (3.5-5.1); SGOT/AST 16 U/L (14-36); SGPT/ALT 11 U/L (0-35); SODIUM 141 mmol/L (137-145); Total Protein 7.2 g/dL (6.3-8.2)
[2018-01-18] MEDS ORDERED: solu-MEDROL 40 MG ONE (17:54)
[2018-01-18] MEDS ORDERED: NAPROSYN 375 MG PO PRN (20:36)
[2018-01-18] MEDS ORDERED: DILAUDID 2 MG INJECTION IV ONE ×2 (20:46→22:50)
[2018-01-18] MEDS ORDERED: Effexor XR 75 MG ONE (21:03)
[2018-01-18] MEDS: BUSPAR 5 MG PO SCH (21:08)
[2018-01-18] MEDS ORDERED: solu-MEDROL 40 MG IV SCH (22:00)
[2018-01-18] MEDS ORDERED: Effexor XR 75 MG PO SCH (22:00)
[2018-01-18 23:42] LABS: Appearance CLEAR (CLEAR)
[2018-01-18 23:43] LABS: Bacteria RARE /HPF (NEGATIVE); Bilirubin NEGATIVE (NEGATIVE); Blood 50 Ery/ul (0-5); Epithelial Cells RARE /HPF (FEW); Glucose NEGATIVE (NEGATIVE); Ketones NEGATIVE (NEGATIVE); Leukocyte Esterase NEGATIVE (NEGATIVE); Mucus SLIGHT /HPF (NEGATIVE); Nitrite NEGATIVE (NEGATIVE); Protein,Urine Dip NEGATIVE (Negative); Urobilinogen NORMAL mg/dL (0-1); WBC 0-2 /HPF (0-5)
[2018-01-19] MEDS ORDERED: AMOXIL 500 MG ONE (02:36)
[2018-01-19] MEDS ORDERED: AMOXIL 500 MG PO ONE (02:45)
[2018-01-19] MEDS: DILAUDID 2 MG INJECTION IV PRN ×3 (05:43→13:53)
[2018-01-19] MEDS: Phenergan 25 MG INJ IV PRN ×2 (05:49→13:53)
--- NOTE | 2018-01-19 09:26 | PCM.SSS ---
History of Present Illness - Chief Complaint Chief Complaint: migraine, nausea, leg pain History of Present Illness: is a 52 year old female pt of mine with MS and chronic migraines who came in for direct admission last night c/o headache for nearly 4 weeks. I had seen her twice during this period but both times she stated she was not feeling poorly enough for hospital admission (we did treat for REHMAN int office). She denies any fever. No new paresthesias. she is c/o bilat leg pain which she feels is related to the MS. Last night she received IV fluids, IV dilaudid and IV solumedrol and she is feeling somewhat better this morning. Her labs were non acute. She is tolerating po. When she starts feeling better she can be discharged to home. Will stop the IV solumedrol and change to po prednisone. - Review of Systems Musculoskeletal: Myalgias Neurological: Headache Psychological: No Depression, No Suicidal Ideations All Other Systems: Reviewed and Negative Medications & Allergies Home Medications: Home Medication List Aspirin/Acetaminophen/Caffeine [Excedrin Migraine Caplet] 2 tab PO Q6H PRN 01/21 [History Confirmed 01/18/18] Gabapentin 800 mg PO QID PRN 01/21/17 [History Confirmed 01/18/18] Buspirone HCl 5 mg [Buspar 5 mg] 5 mg PO BID 12/10/17 [History Confirmed 01/18/18] Amoxicillin 500 mg Cap [Amoxil 500 mg] 1 tab PO TID 01/18/18 [History Confirmed 01/18/18] Oxycodone HCl/Acetaminophen [Oxycodon-Acetaminophen 7.5-325] 1 each PO TID PRN 01/18/18 [History Confirmed 01/18/18] Venlafaxine HCl [Venlafaxine HCl ER] 1 tab PO DAILY 01/18/18 [History Confirmed 01/18/18] Allergies/Adverse Reactions: Allergies Allergy/AdvReac Type Severity Reaction Status Date / Time codeine Allergy Intermediate Itching Verified 08/11/16 11:10 latex Allergy Mild Hives Verified 08/11/16 11:10 zolmitriptan [From Zomig] Allergy Mild HEART RACE Verified 08/11/16 11:10 ketorolac tromethamine Allergy Hives Verified 08/11/16 11:10 [From Toradol] ondansetron HCl [From Zofran] Allergy Swelling Verified 08/11/16 11:10 sumatriptan [From Imitrex] Allergy HEART RACE Verified 08/11/16 11:10 sumatriptan succinate Allergy HEART RACE Verified 08/11/16 11:10 [From Imitrex] - Past Medical History Past Medical History: Yes Neurological History: Migraines, Other ENT History: No Pertinent History Cardiac History: No Pertinent History Respiratory History: Pneumonia Endocrine Medical History: No Pertinent History Musculoskelatal History: Other GI Medical History: No Pertinent History History: No Pertinent History Pyscho-Social History: Anxiety, Depression Reproductive Disorders: No Pertinent History Comment: MS. - Female History Are you now?: No - Past Surgical History Past Surgical History: Yes Neuro Surgical History: No Pertinent History Cardiac History: No Pertinent History Respiratory Surgery: No Pertinent History GI Surgical History: Cholecystectomy Genitourinary Surgical Hx: No Pertinent History Musculskeletal Surgical Hx: No Pertinent History Female Surgical History: No Pertinent History Other Surgical History: removal necrotic tissue from legs and buttocks,2 cvl ports placed and removed,5 picc lines placed and removed ,colonoscopy - Social History Smoking Status: Current every day smoker How long have you smoked: 26 YEARS Exposure to second hand smoke: No Alcohol: None Drug Use: none Significant Family History: cancer (M Breast Ca. Father lung ca) - Physical Exam Vital Signs: Vital Signs - 24 hr Temp Pulse Resp BP Pulse Ox 01/19/18 08:00 98.6 F 80 17 121/68 93 L 01/19/18 04:00 98.1 F 85 16 126/69 92 L 01/19/18 00:00 98.2 F 91 H 19 136/85 95 01/18/18 20:00 98.2 F 77 18 120/72 95 01/18/18 16:22 98.6 F 77 18 159/82 97 01/18/18 16:10 98.6 F 77 18 159/82 97 General Appearance: mild distress, alert Neurologic Exam: oriented x 3, cooperative Eye Exam: eyes nml inspection Ears, Nose, Throat Exam: moist mucous membranes Neck Exam: normal inspection, non-tender, No lymphadenopathy, No thyromegaly Respiratory Exam: normal breath sounds, lungs clear, No crackles/rales, No rhonchi, No wheezing Cardiovascular Exam: regular rate/rhythm, normal heart sounds, No murmur Gastrointestinal/Abdomen Exam: soft, normal bowel sounds, No tenderness, No distention, No mass, No guarding, No rebound Back Exam: normal inspection, No rash Extremity Exam: normal inspection, No pedal edema, No swelling Skin Exam: normal color, warm, dry, No rash Results - Labs Lab/Micro Results: Lab Results-Last 24 Hours 01/18/18 01/18/18 01/18/18 Range/Units 16:43 16:43 23:20 WBC 8.5 (4.0-10.5) K/mm3 RBC 4.98 (4.1-5.4) M/mm3 Hgb 14.5 (12.0-16.0) gm/dl Hct 42.9 (35-47) % MCV 86.1 (78-100) fl MCH 29.1 (26-32) pg MCHC 33.8 (32-36) g/dl RDW 15.0 H (11.5-14.0) % Plt Count 260 (150-450) K/mm3 MPV 10.7 H (6-9.5) fl Gran % 59.3 (36.0-66.0) % Eos # (Auto) 0.10 (0-0.5) Absolute Lymphs (auto) 2.67 (1.0-4.6) Absolute Monos (auto) 0.63 (0.0-1.3) Lymphocytes % 31.6 (24.0-44.0) % Monocytes % 7.4 (0.0-12.0) % Eosinophils % 1.2 (0.00-5.0) % Basophils % 0.5 (0.0-0.4) % Absolute Granulocytes 5.02 (1.4-6.9) Basophils # 0.04 (0-0.4) Sodium 141 (137-145) mmol/L Potassium 4.2 (3.5-5.1) mmol/L Chloride 108 H (98-107) mmol/L Carbon Dioxide 25 (22-30) mmol/L Anion Gap 12.6 (5-15) MEQ/L BUN 11 (7-17) mg/dL Creatinine 0.82 (0.52-1.04) mg/dL Estimated GFR > 60.0 ML/MIN Glucose 89 (74-106) mg/dL Calcium 9.1 (8.4-10.2) mg/dL Total Bilirubin 0.20 (0.2-1.3) mg/dL AST 16 (14-36) U/L ALT 11 (0-35) U/L Alkaline Phosphatase 62 (38-126) U/L Serum Total Protein 7.2 (6.3-8.2) g/dL Albumin 4.2 (3.5-5.0) g/dL Ur Collection Type CLEAN CATCH Urine Color YELLOW (YELLOW) Urine Appearance CLEAR (CLEAR) Urine pH 6.0 (5-6) Ur Specific [place] 1.010 (1.005-1.025) Urine Protein NEGATIVE (Negative) Urine Ketones NEGATIVE (NEGATIVE) Urine Blood 50 (0-5) Joey/ul Urine Nitrite NEGATIVE (NEGATIVE) Urine Bilirubin NEGATIVE (NEGATIVE) Urine Urobilinogen NORMAL (0-1) mg/dL Ur Leukocyte Esterase NEGATIVE (NEGATIVE) Urine Microscopic RBC 2-5 (0-2) /HPF Urine Microscopic WBC 0-2 (0-5) /HPF Ur Epithelial Cells RARE (FEW) /HPF Urine Bacteria RARE (NEGATIVE) /HPF Urine Mucus SLIGHT (NEGATIVE) /HPF Urine Glucose NEGATIVE (NEGATIVE) mg/dL Specimen Received 01/18/18 1200 Assessment/Plan (1) Status migrainosus Current Visit: No Status: Acute Assessment & Plan: Labs are nl and no sx out of the ordinary. If she starts feeling better can d/c home today but she may need another day of IV fluid and pain meds. Code(s): G43.901 - MIGRAINE, UNSP, NOT INTRACTABLE, WITH STATUS MIGRAINOSUS (2) Multiple sclerosis Current Visit: No Status: Chronic Assessment & Plan: change to po prednisone. Code(s): G35 - MULTIPLE SCLEROSIS Hospital Summary - Vitals & Intake/Output Vital Signs: Vital Signs Temperature 98.6 F 01/19/18 08:00 Pulse Rate 80 01/19/18 08:00 Respiratory Rate 17 01/19/18 08:00 Blood Pressure 121/68 01/19/18 08:00 O2 Sat by Pulse Oximetry 93 L 01/19/18 08:00 Intake & Output: Intake & Output 01/16/18 01/17/18 01/18/18 01/19/18 11:59 11:59 11:59 11:59 Intake Total 600 Output Total 300 Balance 300 Weight 71.5 kg - Lab Result Diagrams: 01/18/18 16:43 01/18/18 16:43 Lab Results-Last 24 Hrs: Lab Results-Last 24 Hours 01/18/18 01/18/18 01/18/18 Range/Units 16:43 16:43 23:20 WBC 8.5 (4.0-10.5) K/mm3 RBC 4.98 (4.1-5.4) M/mm3 Hgb 14.5 (12.0-16.0) gm/dl Hct 42.9 (35-47) % MCV 86.1 (78-100) fl MCH 29.1 (26-32) pg MCHC 33.8 (32-36) g/dl RDW 15.0 H (11.5-14.0) % Plt Count 260 (150-450) K/mm3 MPV 10.7 H (6-9.5) fl Gran % 59.3 (36.0-66.0) % Eos # (Auto) 0.10 (0-0.5) Absolute Lymphs (auto) 2.67 (1.0-4.6) Absolute Monos (auto) 0.63 (0.0-1.3) Lymphocytes % 31.6 (24.0-44.0) % Monocytes % 7.4 (0.0-12.0) % Eosinophils % 1.2 (0.00-5.0) % Basophils % 0.5 (0.0-0.4) % Absolute Granulocytes 5.02 (1.4-6.9) Basophils # 0.04 (0-0.4) Sodium 141 (137-145) mmol/L Potassium 4.2 (3.5-5.1) mmol/L Chloride 108 H (98-107) mmol/L Carbon Dioxide 25 (22-30) mmol/L Anion Gap 12.6 (5-15) MEQ/L BUN 11 (7-17) mg/dL Creatinine 0.82 (0.52-1.04) mg/dL Estimated GFR > 60.0 ML/MIN Glucose 89 (74-106) mg/dL Calcium 9.1 (8.4-10.2) mg/dL Total Bilirubin 0.20 (0.2-1.3) mg/dL AST 16 (14-36) U/L ALT 11 (0-35) U/L Alkaline Phosphatase 62 (38-126) U/L Serum Total Protein 7.2 (6.3-8.2) g/dL Albumin 4.2 (3.5-5.0) g/dL Ur Collection Type CLEAN CATCH Urine Color YELLOW (YELLOW) Urine Appearance CLEAR (CLEAR) Urine pH 6.0 (5-6) Ur Specific [place] 1.010 (1.005-1.025) Urine Protein NEGATIVE (Negative) Urine Ketones NEGATIVE (NEGATIVE) Urine Blood 50 (0-5) Joey/ul Urine Nitrite NEGATIVE (NEGATIVE) Urine Bilirubin NEGATIVE (NEGATIVE) Urine Urobilinogen NORMAL (0-1) mg/dL Ur Leukocyte Esterase NEGATIVE (NEGATIVE) Urine Microscopic RBC 2-5 (0-2) /HPF Urine Microscopic WBC 0-2 (0-5) /HPF Ur Epithelial Cells RARE (FEW) /HPF Urine Bacteria RARE (NEGATIVE) /HPF Urine Mucus SLIGHT (NEGATIVE) /HPF Urine Glucose NEGATIVE (NEGATIVE) mg/dL Specimen Received 01/18/18 3390 - Procedures and Test Procedures and Tests throughout Hospitalization: Therapy Orders & Screens 01/18/18 16:50 Smoking Cessation Education ONCE Comment: Diagnosis: migraine, nausea, leg pain Smoking Status: Current every day smoker How long have you smoked: 26 YEARS Have you smoked in the past 12 months: Yes Approximately how many cigarettes per day: 1 ppd Do you dip or chew tobacco: No - Discharge Disposition: Home, Self-Care Condition: Stable Prescriptions: No Action Gabapentin 800 mg PO QID PRN PRN Reason: Pain Aspirin/Acetaminophen/Caffeine [Excedrin Migraine Caplet] 2 tab PO Q6H PRN PRN Reason: Migraines Buspirone HCl 5 mg [Buspar 5 mg] 5 mg PO BID Amoxicillin 500 mg Cap [Amoxil 500 mg] 1 tab PO TID Oxycodone HCl/Acetaminophen [Oxycodon-Acetaminophen 7.5-325] 1 each PO TID PRN PRN Reason: Pain Venlafaxine HCl [Venlafaxine HCl ER] 1 tab PO DAILY Follow up with: MATT ALLISON [Primary Care Provider] - 1 Week
[2018-01-19] MEDS: AMOXIL 500 MG PO SCH ×2 (09:58→13:54)
[2018-01-19] MEDS: BUSPAR 5 MG PO SCH (09:58)
[2018-01-19] MEDS ORDERED: DELTASONE 20 MG PO SCH (10:00)
[2018-01-19 13:27] VITALS: BP 136/69; PULSE 71; O2SAT 94
--- NOTE | 2018-01-21 15:33 | PCM.DCORD ---
- Discharge Disposition: Home, Self-Care Condition: Stable Prescriptions: New Prednisone 20 mg [Deltasone 20 mg] 20 mg PO DAILY 5 Days #12 tablet Continue Gabapentin 800 mg PO QID PRN PRN Reason: Pain Aspirin/Acetaminophen/Caffeine [Excedrin Migraine Caplet] 2 tab PO Q6H PRN PRN Reason: Migraines Buspirone HCl 5 mg [Buspar 5 mg] 5 mg PO BID Amoxicillin 500 mg Cap [Amoxil 500 mg] 1 tab PO TID Oxycodone HCl/Acetaminophen [Oxycodon-Acetaminophen 7.5-325] 1 each PO TID PRN PRN Reason: Pain Venlafaxine HCl [Venlafaxine HCl ER] 1 tab PO DAILY Instructions: Migraine Headache (DC) Follow up with: MATT ALLISON [Primary Care Provider] - 01/26/18 10:15 am
== END 2018-01-19 14:58 | disposition home or self-care (01) ==
LOC: MED SURG 16:02
PROVIDERS: ADMIT Family Medicine; ATTEND Family Medicine
DX: G43.901 Migraine, unspecified, not intractable, with status migrainosus (principal); G35 Multiple sclerosis
CPT/HCPCS: 36415; 80053; 81000; 85025; G0378; J1170; J2550; J2920; A9270-GY

== ENCOUNTER 2018-04-21 11:59 | Observation (INO) | payer OTHER, MEDICARE ==
[2018-04-21] MEDS ORDERED: Sodium Chloride 0.9% 10 ML FLUSH Syringe IV PRN (12:45)
[2018-04-21] MEDS: DILAUDID 2 MG INJECTION IV PRN ×3 (13:12→21:24)
[2018-04-21] MEDS: Sodium Chloride 0.9% 10 ML FLUSH Syringe IV SCH ×2 (13:13→21:24)
[2018-04-21] MEDS: Phenergan 25 MG INJ IV PRN ×2 (13:13→19:34)
[2018-04-21 13:18] LABS: BASOPHIL % 0.3 % (0.0-0.4); Basophil (Absolute #) 0.03 (0-0.4); Eosinophil (Absolute #) 0.24 (0-0.5); Granulocyte Absolute (ANC) 6.86 (1.4-6.9); Granulocytes % 57.2 % (36.0-66.0); Hematocrit 41.7 % (35-47); Hemoglobin 13.6 gm/dl (12.0-16.0); Lymphocyte (Absolute #) 3.86 (1.0-4.6); Lymphocytes % 32.2 % (24.0-44.0); Mean Cell Volume 87.4 fl (78-100); Mean Corpuscular Hemoglobin 28.5 pg (26-32); Mean Corpuscular Hgb Concent. 32.6 g/dl (32-36); Mean Platelet Volume 10.1 fl (6-9.5); Monocyte (Absolute #) 0.99 (0.0-1.3); Monocytes % 8.3 % (0.0-12.0); Platelet Count 281 K/mm3 (150-450); Red Blood Count 4.77 M/mm3 (4.1-5.4); Red Cell Distribution Width 14.9 % (11.5-14.0)
[2018-04-21 14:14] LABS: ALBUMIN 4.4 g/dL (3.5-5.0); ALKALINE PHOSPHATASE 66 U/L (38-126); ANION GAP 13.3 MEQ/L (5-15); BLOOD UREA NITROGEN 18 mg/dL (7-17); CHLORIDE 106 mmol/L (98-107); Calcium 9.4 mg/dL (8.4-10.2); Carbon Dioxide 24 mmol/L (22-30); Glucose 88 mg/dL (74-106); Potassium 3.7 mmol/L (3.5-5.1); SGOT/AST 23 U/L (14-36); SGPT/ALT 13 U/L (0-35); SODIUM 139 mmol/L (137-145); Total Protein 7.4 g/dL (6.3-8.2)
[2018-04-21] MEDS ORDERED: NON-FORMULARY ITEM (Gabapentin [Gabapentin] 800 MG) PO PRN (15:38)
[2018-04-21] MEDS ORDERED: Neurontin 400 MG PO PRN (15:40)
[2018-04-21 20:10] LABS: Appearance CLEAR (CLEAR); Bilirubin NEGATIVE (NEGATIVE); Blood MODERATE Ery/ul (0-5); Glucose NEGATIVE (NEGATIVE); Ketones NEGATIVE (NEGATIVE); Leukocyte Esterase SMALL (NEGATIVE); Nitrite NEGATIVE (NEGATIVE); Protein,Urine Dip NEGATIVE (Negative); Specific Gravity 1.011 (1.005-1.025); Urobilinogen NEGATIVE mg/dL (0-1)
[2018-04-21] MEDS ORDERED: Lactated Ringers 1,000 ML IV SCH (21:34)
[2018-04-21] MEDS: Sodium Chloride 0.9% 1000 ML 1,000 ML IV SCH (23:00)
[2018-04-21] MEDS ORDERED: DILAUDID 2 MG INJECTION IV ONE (23:30)
[2018-04-22] MEDS: Phenergan 25 MG INJ IV PRN ×2 (03:32→10:35)
[2018-04-22] MEDS: DILAUDID 2 MG INJECTION IV PRN ×4 (03:33→13:53)
[2018-04-22] MEDS: Sodium Chloride 0.9% 10 ML FLUSH Syringe IV SCH ×2 (06:20→13:54)
[2018-04-22] MEDS: Sodium Chloride 0.9% 1000 ML 1,000 ML IV SCH (09:02)
--- NOTE | 2018-04-22 09:02 | PCM.DS ---
Discharge Summary Date of Admission: 04/21/18 12:08 Admitting Physician: MATT ALLISON Primary Care Provider: MATT ALLISON Allergies Allergies codeine Allergy (Intermediate, Verified 08/11/16 11:10) Itching latex Allergy (Mild, Verified 08/11/16 11:10) Hives zolmitriptan [From Zomig] Allergy (Mild, Verified 08/11/16 11:10) HEART RACE ketorolac tromethamine [From Toradol] Allergy (Verified 08/11/16 11:10) Hives ondansetron HCl [From Zofran] Allergy (Verified 08/11/16 11:10) Swelling sumatriptan [From Imitrex] Allergy (Verified 08/11/16 11:10) HEART RACE POUNDING HEART sumatriptan succinate [From Imitrex] Allergy (Verified 08/11/16 11:10) HEART RACE [facility] Summary - Hospital Course Hospital Course: Pt with MS and chronic migraines, admitted wiht persistent migraine REHMAN. Given IV fluids, IV dilaudid, and IV peneragan. REHMAN was 7-8/10 on admission. Currently down to 3/10 and she is feeling much better. Labs nonspecific (mild increase in WBC with no left shift). Will discharge to home this afternoon. - Vitals & Intake/Output Vital Signs: Vital Signs Temperature 97.9 F 04/22/18 06:54 Pulse Rate 71 04/22/18 06:54 Respiratory Rate 18 04/22/18 06:54 Blood Pressure 144/84 04/22/18 06:54 O2 Sat by Pulse Oximetry 99 04/22/18 06:54 Intake & Output: Intake & Output 04/19/18 04/20/18 04/21/18 04/22/18 11:59 11:59 11:59 11:59 Intake Total 1520 Output Total 400 Balance 1120 Weight 74.8 kg - Lab Result Diagrams: 04/21/18 13:15 04/21/18 13:15 Lab Results-Last 24 Hrs: Lab Results-Last 24 Hours 04/21/18 04/21/18 04/21/18 Range/Units 13:15 13:15 15:30 WBC 12.0 H (4.0-10.5) K/mm3 RBC 4.77 (4.1-5.4) M/mm3 Hgb 13.6 (12.0-16.0) gm/dl Hct 41.7 (35-47) % MCV 87.4 (78-100) fl MCH 28.5 (26-32) pg MCHC 32.6 (32-36) g/dl RDW 14.9 H (11.5-14.0) % Plt Count 281 (150-450) K/mm3 MPV 10.1 H (6-9.5) fl Gran % 57.2 (36.0-66.0) % Eos # (Auto) 0.24 (0-0.5) Absolute Lymphs (auto) 3.86 (1.0-4.6) Absolute Monos (auto) 0.99 (0.0-1.3) Lymphocytes % 32.2 (24.0-44.0) % Monocytes % 8.3 (0.0-12.0) % Eosinophils % 2.0 (0.00-5.0) % Basophils % 0.3 (0.0-0.4) % Absolute Granulocytes 6.86 (1.4-6.9) Basophils # 0.03 (0-0.4) Sodium 139 (137-145) mmol/L Potassium 3.7 (3.5-5.1) mmol/L Chloride 106 (98-107) mmol/L Carbon Dioxide 24 (22-30) mmol/L Anion Gap 13.3 (5-15) MEQ/L BUN 18 H (7-17) mg/dL Creatinine 0.80 (0.52-1.04) mg/dL Estimated GFR > 60.0 ML/MIN Glucose 88 (74-106) mg/dL Calcium 9.4 (8.4-10.2) mg/dL Total Bilirubin 0.10 L (0.2-1.3) mg/dL AST 23 (14-36) U/L ALT 13 (0-35) U/L Alkaline Phosphatase 66 (38-126) U/L Serum Total Protein 7.4 (6.3-8.2) g/dL Albumin 4.4 (3.5-5.0) g/dL Urine Color STRAW (YELLOW) Urine Appearance CLEAR (CLEAR) Urine pH 5.0 (5-6) Ur Specific [place] 1.011 (1.005-1.025) Urine Protein NEGATIVE (Negative) Urine Ketones NEGATIVE (NEGATIVE) Urine Blood MODERATE (0-5) Joey/ul Urine Nitrite NEGATIVE (NEGATIVE) Urine Bilirubin NEGATIVE (NEGATIVE) Urine Urobilinogen NEGATIVE (0-1) mg/dL Ur Leukocyte Esterase SMALL (NEGATIVE) Urine WBC (Auto) 6-10 (0-5) /HPF Urine RBC (Auto) 0-2 (0-2) /HPF U Epithel Cells (Auto) RARE (FEW) /HPF Urine Bacteria (Auto) RARE (NEGATIVE) /HPF Urine Mucus (Auto) SLIGHT (NEGATIVE) /HPF Urine Glucose NEGATIVE (NEGATIVE) mg/dL Discharge Exam General Appearance: no apparent distress, alert Neurologic Exam: oriented x 3, cooperative Skin Exam: warm, dry Ears, Nose, Throat Exam: moist mucous membranes Respiratory Exam: normal breath sounds, lungs clear, No crackles/rales, No rhonchi, No wheezing Cardiovascular Exam: regular rate/rhythm, normal heart sounds, No murmur Gastrointestinal/Abdomen Exam: soft, normal bowel sounds, No tenderness, No distention, No mass, No guarding, No rebound Extremity Exam: normal inspection, No pedal edema, No swelling Final Diagnosis/Problem List - Final Discharge Diagnosis/Problem (1) Intractable migraine Current Visit: No Status: Acute Assessment & Plan: Feeling better. Will increase diet. Home this afternoon. (2) Multiple sclerosis Current Visit: No Status: Chronic - Discharge Disposition: Home, Self-Care Condition: Good Prescriptions: No Action Gabapentin 800 mg PO QID PRN PRN PRN Reason: Pain Aspirin/Acetaminophen/Caffeine [Excedrin Migraine Caplet] 2 tab PO Q6H PRN PRN Reason: Migraines Oxycodone HCl/Acetaminophen [Oxycodon-Acetaminophen 7.5-325] 1 each PO TID PRN PRN Reason: Pain Venlafaxine HCl [Venlafaxine HCl ER] 150 mg PO DAILY Follow up with: MATT ALLISON [Primary Care Provider] - 1 Week
[2018-04-22 12:08] VITALS: BP 144/78; PULSE 78; O2SAT 98
[2018-04-22] MEDS ORDERED: Effexor XR 75 MG PO SCH (22:00)
== END 2018-04-22 15:49 | disposition home or self-care (01) ==
LOC: MED SURG 12:08
PROVIDERS: ADMIT Family Medicine; ATTEND Family Medicine
DX: G43.919 Migraine, unspecified, intractable, without status migrainosus (principal); G35 Multiple sclerosis; F32.9 Major depressive disorder, single episode, unspecified; F41.9 Anxiety disorder, unspecified; R11.0 Nausea
CPT/HCPCS: 36415; 80053; 81001; 85025; 93268; 94762; J1170; J2550; A9270-GY; G0378

== ENCOUNTER 2018-12-06 15:19 | Observation (INO) | payer OTHER, MEDICARE ==
[2018-12-06] MEDS ORDERED: Lactated Ringers 1,000 ML IV SCH (16:30)
[2018-12-06 16:56] LABS: BASOPHIL % 0.4 % (0.0-0.4); Basophil (Absolute #) 0.04 (0-0.4); Eosinophil % 3.7 % (0.00-5.0); Eosinophil (Absolute #) 0.37 (0-0.5); Granulocyte Absolute (ANC) 6.19 (1.4-6.9); Granulocytes % 61.4 % (36.0-66.0); Hemoglobin 13.9 gm/dl (12.0-16.0); Lymphocyte (Absolute #) 2.49 (1.0-4.6); Lymphocytes % 24.7 % (24.0-44.0); Mean Cell Volume 89.4 fl (78-100); Mean Corpuscular Hemoglobin 28.9 pg (26-32); Mean Corpuscular Hgb Concent. 32.3 g/dl (32-36); Monocyte (Absolute #) 0.99 (0.0-1.3); Monocytes % 9.8 % (0.0-12.0); Platelet Count 302 K/mm3 (150-450); Red Blood Count 4.81 M/mm3 (4.1-5.4); Red Cell Distribution Width 14.7 % (11.5-14.0); White Blood Count 10.1 K/mm3 (4.0-10.5)
--- NOTE | 2018-12-06 16:59 | XRAY ---
Indication: Left upper quadrant pain. Comparison: August 23, 2015. KUB again nonacute and nonobstructed with cholecystectomy clips. Solid organs unremarkable. Osseous structures intact again with lower lumbar and bilateral hip degenerative changes. Lung bases clear. Impression: Stable negative KUB.
[2018-12-06 17:04] LABS: INFLUENZA A NEGATIVE (NEGATIVE); INFLUENZA B NEGATIVE (NEGATIVE); RESPIRATORY SYNCTIAL VIRUS NEGATIVE (Negative)
[2018-12-06 17:10] LABS: ALBUMIN 4.2 g/dL (3.5-5.0); ALKALINE PHOSPHATASE 73 U/L (38-126); AMYLASE 88 U/L (30-110); ANION GAP 13.6 MEQ/L (5-15); BLOOD UREA NITROGEN 10 mg/dL (7-17); CHLORIDE 106 mmol/L (98-107); Calcium 9.6 mg/dL (8.4-10.2); Carbon Dioxide 25 mmol/L (22-30); Creatinine 1 0.87 mg/dL (0.52-1.04); Glucose 109 mg/dL (74-106); LIPASE 90 U/L (23-300); Potassium 3.7 mmol/L (3.5-5.1); SGOT/AST 21 U/L (14-36); SGPT/ALT 15 U/L (0-35); SODIUM 141 mmol/L (137-145); Total Protein 7.7 g/dL (6.3-8.2)
[2018-12-06] MEDS: DILAUDID 2 MG INJECTION IV PRN ×2 (17:32→21:35)
[2018-12-06] MEDS: Phenergan 25 MG INJ IV PRN (17:33)
--- NOTE | 2018-12-06 18:56 | PCM.HP.ADD ---
Addendum to History & Physical - History & Physical Addendum Addendum to History & Physical: This certifies that the History & Physical in the electronic chart reflects the current health status of the patient. If there are changes in the H&P these changes/exceptions are listed as follows.
[2018-12-06] MEDS ORDERED: Neurontin 400 MG PO PRN (19:03)
[2018-12-06 20:13] LABS: Appearance CLEAR (CLEAR); Bilirubin NEGATIVE (NEGATIVE); Blood SMALL Ery/ul (0-5); Glucose NEGATIVE (NEGATIVE); Ketones NEGATIVE (NEGATIVE); Leukocyte Esterase NEGATIVE (NEGATIVE); Nitrite NEGATIVE (NEGATIVE); Protein,Urine Dip NEGATIVE (Negative); Specific Gravity 1.026 (1.005-1.025); Urobilinogen NEGATIVE mg/dL (0-1)
[2018-12-06] MEDS: Lactated Ringers 1,000 ML IV SCH (20:21)
[2018-12-06] MEDS ORDERED: LIORESAL 10 MG ONE (21:16)
[2018-12-06] MEDS: Effexor XR 75 MG PO SCH (21:35)
[2018-12-06] MEDS ORDERED: LIORESAL 10 MG PO SCH (22:00)
[2018-12-07] MEDS ORDERED: LIORESAL 10 MG PO PRN (01:11)
[2018-12-07] MEDS: DILAUDID 2 MG INJECTION IV PRN ×6 (01:45→22:39)
[2018-12-07] MEDS: Phenergan 25 MG INJ IV PRN ×4 (01:45→22:36)
[2018-12-07] MEDS: Lactated Ringers 1,000 ML IV SCH ×2 (06:30→18:30)
[2018-12-07 06:39] LABS: ANION GAP 11.8 MEQ/L (5-15); BLOOD UREA NITROGEN 5 mg/dL (7-17); CHLORIDE 106 mmol/L (98-107); Calcium 8.9 mg/dL (8.4-10.2); Carbon Dioxide 27 mmol/L (22-30); Creatinine 1 0.65 mg/dL (0.52-1.04); Glucose 75 mg/dL (74-106); Potassium 3.9 mmol/L (3.5-5.1); SODIUM 141 mmol/L (137-145)
--- NOTE | 2018-12-07 08:42 | XRAY ---
Indication: Left upper quadrant pain. Multiple contiguous axial images obtained through the abdomen and pelvis using 100 cc Isovue 370 contrast. Enteric contrast also used. Comparison: August 22, 2015. Lung bases again demonstrates bibasilar calcified granulomas. No infiltrate or effusion. Heart is not enlarged. Stable tiny distal periesophageal calcified node. Contrasted stomach and bowel loops appear nonobstructed. Normal appendix. No free fluid/air. Both kidneys enhance and excrete with stable bilateral renal cysts. Again previous cholecystectomy and calcified splenic granuloma. Remaining liver, pancreas, spleen, adrenal glands, kidneys, ureters, bladder, uterus, and aorta appear unremarkable. No pathologic retroperitoneal lymphadenopathy. Osseous structures intact. No ventral or inguinal hernias. Impression: 1. Stable bilateral renal cysts and evidence for old granulomatous disease. 2. Remaining CT abdomen/pelvis with contrast exam is negative. CT DI 22.83
--- NOTE | 2018-12-07 13:34 | PCM.NOTE ---
Date and Time: 12/07/18 1330 Subjective Assessment: Patient states her headache pain is on each side of her forehead. 01/04 now ,has Dilaudid 1 mg with 12.5 mg phenergan and slept for a while after this dosing today but just vomited green bile and mucus.She is passing gas but no BM since in hospital. Is a little hungry for salty food,not taking in much from liquid diet. Objective Exam General Appearance: mild distress (headache and nausea) Neurologic Exam: oriented x 3, cooperative Skin Exam: normal color, warm, dry Ears, Nose, Throat Exam: TM abnormal (R) (TM inflammed dull pink, PND yellow mucus) Neck Exam: other (tight paracervical and frontalis mm,no nuchal rigidity) Respiratory Exam: diminished breath sounds, other (no wheezing or ronchi or rales) Cardiovascular Exam: other (regular,rate 60) Gastrointestinal/Abdomen Exam: distention, other (increased BS,tender across mid abdomen,no guarding,no rebound- CT was unremark) OBJECTIVE DATA Vital Signs: Vital Signs - 24 hr Temp Pulse Resp BP Pulse Ox 12/07/18 12:31 97.7 F 85 20 135/74 96 12/07/18 07:13 97.5 F 64 18 145/72 95 12/07/18 06:41 95 12/07/18 04:10 98.1 F 74 18 118/82 96 12/07/18 00:20 97.4 F 76 18 139/63 96 12/06/18 20:24 97.8 F 68 17 119/60 97 12/06/18 20:05 70 18 97 12/06/18 17:00 82 16 98 12/06/18 16:20 98 F 82 16 138/71 98 12/06/18 15:32 98 F 82 20 138/71 98 Pain Assessment - Last Documented Pain Intensity 7 Pain Scale Used 0-10 Pain Scale Intake and Output: Intake & Output 12/05/18 12/06/18 12/07/18 12/08/18 11:59 11:59 11:59 11:59 Intake Total 2457 120 Output Total 900 100 Balance 1557 20 Weight 77.8 kg Lab Results: Lab Results-Last 24 Hours 12/06/18 12/06/18 12/06/18 Range/Units 16:00 16:45 16:45 WBC 10.1 (4.0-10.5) K/mm3 RBC 4.81 (4.1-5.4) M/mm3 Hgb 13.9 (12.0-16.0) gm/dl Hct 43.0 (35-47) % MCV 89.4 (78-100) fl MCH 28.9 (26-32) pg MCHC 32.3 (32-36) g/dl RDW 14.7 H (11.5-14.0) % Plt Count 302 (150-450) K/mm3 MPV 11.0 H (6-9.5) fl Gran % 61.4 (36.0-66.0) % Eos # (Auto) 0.37 (0-0.5) Absolute Lymphs (auto) 2.49 (1.0-4.6) Absolute Monos (auto) 0.99 (0.0-1.3) Lymphocytes % 24.7 (24.0-44.0) % Monocytes % 9.8 (0.0-12.0) % Eosinophils % 3.7 (0.00-5.0) % Basophils % 0.4 (0.0-0.4) % Absolute Granulocytes 6.19 (1.4-6.9) Basophils # 0.04 (0-0.4) Sodium 141 (137-145) mmol/L Potassium 3.7 (3.5-5.1) mmol/L Chloride 106 (98-107) mmol/L Carbon Dioxide 25 (22-30) mmol/L Anion Gap 13.6 (5-15) MEQ/L BUN 10 (7-17) mg/dL Creatinine 0.87 (0.52-1.04) mg/dL Estimated GFR > 60.0 ML/MIN Glucose 109 H (74-106) mg/dL Calcium 9.6 (8.4-10.2) mg/dL Total Bilirubin 0.30 (0.2-1.3) mg/dL AST 21 (14-36) U/L ALT 15 (0-35) U/L Alkaline Phosphatase 73 (38-126) U/L Serum Total Protein 7.7 (6.3-8.2) g/dL Albumin 4.2 (3.5-5.0) g/dL Amylase 88 (30-110) U/L Lipase 90 (23-300) U/L Urine Color (YELLOW) Urine Appearance (CLEAR) Urine pH (5-6) Ur Specific [place] (1.005-1.025) Urine Protein (Negative) Urine Ketones (NEGATIVE) Urine Blood (0-5) Joey/ul Urine Nitrite (NEGATIVE) Urine Bilirubin (NEGATIVE) Urine Urobilinogen (0-1) mg/dL Ur Leukocyte Esterase (NEGATIVE) Urine WBC (Auto) (0-5) /HPF Urine RBC (Auto) (0-2) /HPF U Epithel Cells (Auto) (FEW) /HPF Urine Bacteria (Auto) (NEGATIVE) /HPF Urine Glucose (NEGATIVE) mg/dL Influenza Type A Ag NEGATIVE (NEGATIVE) Influenza Type B Ag NEGATIVE (NEGATIVE) RSV (PCR) NEGATIVE (Negative) 12/06/18 12/07/18 Range/Units 20:00 05:58 WBC (4.0-10.5) K/mm3 RBC (4.1-5.4) M/mm3 Hgb (12.0-16.0) gm/dl Hct (35-47) % MCV (78-100) fl MCH (26-32) pg MCHC (32-36) g/dl RDW (11.5-14.0) % Plt Count (150-450) K/mm3 MPV (6-9.5) fl Gran % (36.0-66.0) % Eos # (Auto) (0-0.5) Absolute Lymphs (auto) (1.0-4.6) Absolute Monos (auto) (0.0-1.3) Lymphocytes % (24.0-44.0) % Monocytes % (0.0-12.0) % Eosinophils % (0.00-5.0) % Basophils % (0.0-0.4) % Absolute Granulocytes (1.4-6.9) Basophils # (0-0.4) Sodium 141 (137-145) mmol/L Potassium 3.9 (3.5-5.1) mmol/L Chloride 106 (98-107) mmol/L Carbon Dioxide 27 (22-30) mmol/L Anion Gap 11.8 (5-15) MEQ/L BUN 5 L (7-17) mg/dL Creatinine 0.65 (0.52-1.04) mg/dL Estimated GFR > 60.0 ML/MIN Glucose 75 (74-106) mg/dL Calcium 8.9 (8.4-10.2) mg/dL Total Bilirubin (0.2-1.3) mg/dL AST (14-36) U/L ALT (0-35) U/L Alkaline Phosphatase (38-126) U/L Serum Total Protein (6.3-8.2) g/dL Albumin (3.5-5.0) g/dL Amylase (30-110) U/L Lipase (23-300) U/L Urine Color COLORLESS (YELLOW) Urine Appearance CLEAR (CLEAR) Urine pH 6.0 (5-6) Ur Specific [place] 1.026 (1.005-1.025) Urine Protein NEGATIVE (Negative) Urine Ketones NEGATIVE (NEGATIVE) Urine Blood SMALL (0-5) Joey/ul Urine Nitrite NEGATIVE (NEGATIVE) Urine Bilirubin NEGATIVE (NEGATIVE) Urine Urobilinogen NEGATIVE (0-1) mg/dL Ur Leukocyte Esterase NEGATIVE (NEGATIVE) Urine WBC (Auto) NONE (0-5) /HPF Urine RBC (Auto) NONE (0-2) /HPF U Epithel Cells (Auto) NONE (FEW) /HPF Urine Bacteria (Auto) NONE (NEGATIVE) /HPF Urine Glucose NEGATIVE (NEGATIVE) mg/dL Influenza Type A Ag (NEGATIVE) Influenza Type B Ag (NEGATIVE) RSV (PCR) (Negative) Radiology Exams: Radiology Procedures Category Date Time Status ABDOMEN AND PELVIS W CONTRAST [CT] Routine Exams 12/06/18 15:36 Completed KUB Routine Exams 12/06/18 15:47 Completed Multi-Disciplinary Progress Notes: Multi-Disciplinary Progress Notes 12/07/18 03:02 Respiratory Note by David Hayward I THOUGHT I DID NOT CHART MY EVENING ROUNDS FOR 12/06/18 SO THERE ARE TWO ENTRIES. Initialized on 12/07/18 03:02 - END OF NOTE
[2018-12-07] MEDS ORDERED: Cyclobenzaprine 10 MG PO ONE (13:41)
[2018-12-07] MEDS: ROCEPHIN 1 Gm-D5w 50 ml Bag** 1 G/50 ML IVPB IV SCH (14:28)
[2018-12-07] MEDS: Cyclobenzaprine 10 MG PO SCH (21:27)
[2018-12-07] MEDS: Effexor XR 75 MG PO SCH (21:27)
[2018-12-08] MEDS: DILAUDID 2 MG INJECTION IV PRN ×2 (03:55→08:53)
[2018-12-08] MEDS: Phenergan 25 MG INJ IV PRN ×2 (03:55→08:59)
[2018-12-08] MEDS: Lactated Ringers 1,000 ML IV SCH (04:55)
[2018-12-08 07:30] VITALS: O2SAT 94
[2018-12-08] MEDS: ROCEPHIN 1 Gm-D5w 50 ml Bag** 1 G/50 ML IVPB IV SCH (08:52)
[2018-12-08] MEDS: Cyclobenzaprine 10 MG PO SCH (08:55)
[2018-12-08 11:44] VITALS: BP 137/63; PULSE 79
== END 2018-12-08 15:15 | disposition home or self-care (01) ==
LOC: MED SURG 15:19
PROVIDERS: ADMIT Family Medicine; ATTEND Family Medicine
DX: R10.12 Left upper quadrant pain (principal); R05 Cough; G43.909 Migraine, unspecified, not intractable, without status migrainosus; R11.2 Nausea with vomiting, unspecified; Z79.899 Other long term (current) drug therapy
CPT/HCPCS: 36415; 74018; 74177; 80048; 80053; 81001; 82150; 83690; 85025; 87086; 87631; 93268; 94762; G0378; J0696; J1170; J2550; A9270-GY

== ENCOUNTER 2019-08-24 14:57 | Observation (INO) | payer OTHER, MEDICARE ==
[2019-08-24] MEDS ORDERED: Sodium Chloride 0.9% 1000 ML 1,000 ML IV SCH (16:00)
[2019-08-24] MEDS: Phenergan 25 MG INJ IV PRN ×2 (16:09→21:59)
[2019-08-24] MEDS: DILAUDID 2 MG INJECTION IV SCH ×2 (16:11→18:07)
[2019-08-24 16:34] LABS: Absolute Neutrophil Ct (ANC) 3.88 (1.4-6.9); BASOPHIL % 0.5 % (0.0-0.4); Basophil (Absolute #) 0.04 (0-0.4); Eosinophil % 3.7 % (0.00-5.0); Eosinophil (Absolute #) 0.28 (0-0.5); Hematocrit 37.6 % (35-47); Lymphocyte (Absolute #) 2.28 (1.0-4.6); Lymphocytes % 30.4 % (24.0-44.0); Mean Cell Volume 87.2 fl (78-100); Mean Corpuscular Hemoglobin 27.8 pg (26-32); Mean Corpuscular Hgb Concent. 31.9 g/dl (32-36); Mean Platelet Volume 10.6 fl (7.5-11.0); Monocyte (Absolute #) 1.02 (0.0-1.3); Monocytes % 13.6 % (0.0-12.0); Neutrophil % 51.8 % (36.0-66.0); Platelet Count 318 K/mm3 (150-450); Red Blood Count 4.31 M/mm3 (4.1-5.4); White Blood Count 7.5 K/mm3 (4.0-10.5)
[2019-08-24 16:44] LABS: ALBUMIN 3.9 g/dL (3.5-5.0); ALKALINE PHOSPHATASE 68 U/L (38-126); ANION GAP 11.5 MEQ/L (5-15); BLOOD UREA NITROGEN 12 mg/dL (7-17); CHLORIDE 109 mmol/L (98-107); Calcium 8.9 mg/dL (8.4-10.2); Carbon Dioxide 22 mmol/L (22-30); Creatinine 1 0.75 mg/dL (0.52-1.04); Glucose 102 mg/dL (74-106); Potassium 3.5 mmol/L (3.5-5.1); SGOT/AST 32 U/L (14-36); SGPT/ALT 21 U/L (0-35); SODIUM 139 mmol/L (137-145); Total Protein 7.3 g/dL (6.3-8.2)
[2019-08-24] MEDS: Lactated Ringers 1,000 ML IV SCH (16:58)
[2019-08-24] MEDS ORDERED: NON-FORMULARY ITEM (Gabapentin [Gabapentin] 800 MG) PO PRN (17:08)
[2019-08-24] MEDS: Neurontin 400 MG PO SCH ×2 (18:08→21:58)
[2019-08-24 18:24] LABS: Appearance CLEAR (CLEAR); Bilirubin NEGATIVE (NEGATIVE); Blood SMALL Ery/ul (0-5); Glucose NEGATIVE (NEGATIVE); Ketones NEGATIVE (NEGATIVE); Leukocyte Esterase NEGATIVE (NEGATIVE); Mucus SLIGHT /HPF (NEGATIVE); Nitrite NEGATIVE (NEGATIVE); Protein,Urine Dip NEGATIVE (Negative); Specific Gravity 1.008 (1.005-1.025); Urobilinogen NEGATIVE mg/dL (0-1)
[2019-08-24] MEDS: Effexor XR 75 MG PO SCH (21:57)
[2019-08-24] MEDS: LIORESAL 10 MG PO SCH (21:58)
[2019-08-24] MEDS: DILAUDID 2 MG INJECTION IV PRN (21:59)
[2019-08-25] MEDS: Lactated Ringers 1,000 ML IV SCH ×3 (03:59→23:30)
[2019-08-25] MEDS: DILAUDID 2 MG INJECTION IV PRN ×4 (04:00→22:39)
[2019-08-25] MEDS: Phenergan 25 MG INJ IV PRN ×4 (04:00→22:39)
--- NOTE | 2019-08-25 08:10 | PCM.SSS ---
History of Present Illness - Chief Complaint Chief Complaint: migraine/nausea and vomiting History of Present Illness: is a 54 year old female pt of mine from [facility] with chronic migraine, MS , depression, anxiety, chronic back pain, and recent R rotator cuff repair (18d ago, with Dr. Garcia) who called the office yesterday complaining of worsening headache. She periodically requires admission for IV fluids and IV narcotics with a severe migraine. She has had a REHMAN for about 2 weeks, much worse over the past 1 week. She thinks stress is a contributor. She did have some vomiting prior to admission and continues to have nausea. no fever. On admission, her labs were unremarkable; WBC 7.5, BMP nl (aside from Cl 109), UA wnl. If she starts feeling better today, she will be able to discharge to home on her home meds. If she is still feeling poorly, would have her stay again tonight for re-evaluation in the morning. - Review of Systems Abdominal/Gastrointestinal: Nausea, Vomiting, Appetite Changes Neurological: Headache Psychological: Anxiety All Other Systems: Reviewed and Negative Medications & Allergies Home Medications: Home Medication List Aspirin/Acetaminophen/Caffeine [Excedrin Migraine Caplet] 2 tab PO Q6H PRN 01/21 [History Confirmed 08/24/19] Gabapentin 800 mg PO QID PRN PRN 01/21/17 [History Confirmed 08/24/19] Venlafaxine HCl [Venlafaxine HCl ER] 150 mg PO HS 04/21/18 [History Confirmed ] Baclofen 10 mg PO BID 12/06/18 [History Confirmed 08/24/19] Allergies/Adverse Reactions: Allergies Allergy/AdvReac Type Severity Reaction Status Date / Time codeine Allergy Intermediate Itching Verified 08/11/16 11:10 latex Allergy Mild Hives Verified 08/11/16 11:10 zolmitriptan [From Zomig] Allergy Mild HEART RACE Verified 08/11/16 11:10 ketorolac tromethamine Allergy Hives Verified 08/11/16 11:10 [From Toradol] ondansetron HCl [From Zofran] Allergy Swelling Verified 08/11/16 11:10 sumatriptan [From Imitrex] Allergy HEART RACE Verified 08/11/16 11:10 sumatriptan succinate Allergy HEART RACE Verified 08/11/16 11:10 [From Imitrex] - Past Medical History Past Medical History: Yes Neurological History: Migraines, Peripheral Neuropathy ENT History: No Pertinent History Cardiac History: No Pertinent History Respiratory History: Pneumonia Endocrine Medical History: No Pertinent History Musculoskelatal History: No Pertinent History GI Medical History: No Pertinent History History: No Pertinent History Pyscho-Social History: No Pertinent History Reproductive Disorders: No Pertinent History Comment: Multiple Sclerosis 2006 - Female History Are you now?: No - Past Surgical History Past Surgical History: Yes Neuro Surgical History: No Pertinent History Cardiac History: No Pertinent History Respiratory Surgery: No Pertinent History GI Surgical History: Cholecystectomy Genitourinary Surgical Hx: No Pertinent History Musculskeletal Surgical Hx: Other Female Surgical History: No Pertinent History Other Surgical History: rotator cuff repair, right - Social History Smoking Status: Current every day smoker How long have you smoked: 37 Exposure to second hand smoke: Yes Alcohol: None Drug Use: none Significant Family History: cancer (M Breast Ca. Father lung ca) - Physical Exam Vital Signs: Vital Signs - 24 hr Temp Pulse Resp BP Pulse Ox 08/25/19 07:49 96 08/25/19 06:57 97.7 F 85 22 127/78 93 L 08/25/19 03:00 97.7 F 94 H 16 135/80 96 08/24/19 23:00 97.9 F 98 H 18 128/60 95 08/24/19 19:45 97 08/24/19 19:39 97.5 F 88 18 128/71 97 08/24/19 17:33 96 08/24/19 16:33 97.4 F 96 H 20 137/74 96 08/24/19 15:39 97.4 F 93 H 20 137/74 96 General Appearance: mild distress, alert Neurologic Exam: oriented x 3, cooperative, normal mood/affect, No motor deficits Eye Exam: eyes nml inspection Ears, Nose, Throat Exam: moist mucous membranes Neck Exam: normal inspection Respiratory Exam: normal breath sounds, lungs clear, No crackles/rales, No rhonchi, No wheezing Cardiovascular Exam: regular rate/rhythm, normal heart sounds, No murmur Gastrointestinal/Abdomen Exam: soft, normal bowel sounds, No tenderness, No distention, No mass, No guarding, No rebound Back Exam: normal inspection, No rash Extremity Exam: No pedal edema, No swelling Skin Exam: normal color, warm, dry, No rash Wound Assessment: Skin/Wound Assessment Wound/Incision Assessment Start: 08/24/19 17: 08 Text: Status: Active Freq: Q6H Protocol: Document 08/25/19 02:00 KS (Rec: 08/25/19 05:41 KS [id number]) Wound/Incision Assessment Right Shoulder Wound Assessment Admission Wound Type Incision Wound Stage Non Pressure Wound Dressing Status Dry & Intact Drainage Amount None Drainage Odor None/Absent General Appearance Well Approximated Results - Labs Lab/Micro Results: Lab Results-Last 24 Hours 08/24/19 08/24/19 08/24/19 Range/Units 16:31 16:31 17:15 WBC 7.5 (4.0-10.5) K/mm3 RBC 4.31 (4.1-5.4) M/mm3 Hgb 12.0 (12.0-16.0) gm/dl Hct 37.6 (35-47) % MCV 87.2 (78-100) fl MCH 27.8 (26-32) pg MCHC 31.9 L (32-36) g/dl RDW 15.0 H (11.5-14.0) % Plt Count 318 (150-450) K/mm3 MPV 10.6 (7.5-11.0) fl Gran % 51.8 (36.0-66.0) % Eos # (Auto) 0.28 (0-0.5) Absolute Lymphs (auto) 2.28 (1.0-4.6) Absolute Monos (auto) 1.02 (0.0-1.3) Lymphocytes % 30.4 (24.0-44.0) % Monocytes % 13.6 H (0.0-12.0) % Eosinophils % 3.7 (0.00-5.0) % Basophils % 0.5 (0.0-0.4) % Absolute Granulocytes 3.88 (1.4-6.9) Basophils # 0.04 (0-0.4) Sodium 139 (137-145) mmol/L Potassium 3.5 (3.5-5.1) mmol/L Chloride 109 H (98-107) mmol/L Carbon Dioxide 22 (22-30) mmol/L Anion Gap 11.5 (5-15) MEQ/L BUN 12 (7-17) mg/dL Creatinine 0.75 (0.52-1.04) mg/dL Estimated GFR > 60.0 ML/MIN Glucose 102 (74-106) mg/dL Calcium 8.9 (8.4-10.2) mg/dL Total Bilirubin 0.40 (0.2-1.3) mg/dL AST 32 (14-36) U/L ALT 21 (0-35) U/L Alkaline Phosphatase 68 (38-126) U/L Serum Total Protein 7.3 (6.3-8.2) g/dL Albumin 3.9 (3.5-5.0) g/dL Urine Color YELLOW (YELLOW) Urine Appearance CLEAR (CLEAR) Urine pH 5.0 (5-6) Ur Specific [place] 1.008 (1.005-1.025) Urine Protein NEGATIVE (Negative) Urine Ketones NEGATIVE (NEGATIVE) Urine Blood SMALL (0-5) Joey/ul Urine Nitrite NEGATIVE (NEGATIVE) Urine Bilirubin NEGATIVE (NEGATIVE) Urine Urobilinogen NEGATIVE (0-1) mg/dL Ur Leukocyte Esterase NEGATIVE (NEGATIVE) Urine WBC (Auto) NONE (0-5) /HPF Urine RBC (Auto) NONE (0-2) /HPF U Epithel Cells (Auto) NONE (FEW) /HPF Urine Bacteria (Auto) NONE (NEGATIVE) /HPF Urine Mucus (Auto) SLIGHT (NEGATIVE) /HPF Urine Culture Reflexed ORDERED SEPARATELY (NO) Urine Glucose NEGATIVE (NEGATIVE) mg/dL Microbiology 08/24/19 17:15 Urine Culture - Preliminary Urine, Void NO GROWTH TO DATE Assessment/Plan (1) Intractable migraine Current Visit: No Status: Acute Onset Date: ~04/21/18 Qualifiers: Migraine type: without aura Status migrainosus presence: with status migrainosus Qualified Code(s): G43.011 - Migraine without aura, intractable, with status migrainosus Assessment & Plan: On IV dilaudid, phenergan and zofran prn. IVF. Code(s): G43.919 - MIGRAINE, UNSP, INTRACTABLE, WITHOUT STATUS MIGRAINOSUS (2) Nausea Current Visit: No Status: Acute Onset Date: ~04/21/18 Code(s): R11.0 - NAUSEA (3) Multiple sclerosis Current Visit: No Status: Chronic Code(s): G35 - MULTIPLE SCLEROSIS Hospital Summary - Hospital Course Hospital Course: is a 54 year old female pt of mine from [facility] with chronic migraine, MS , depression, anxiety, chronic back pain, and recent R rotator cuff repair (18d ago, with Dr. Garcia) who called the office yesterday complaining of worsening headache. She periodically requires admission for IV fluids and IV narcotics with a severe migraine. She has had a REHMAN for about 2 weeks, much worse over the past 1 week. She thinks stress is a contributor. She did have some vomiting prior to admission and continues to have nausea. no fever. On admission, her labs were unremarkable; WBC 7.5, BMP nl (aside from Cl 109), UA wnl. If she starts feeling better today, she will be able to discharge to home on her home meds. If she is still feeling poorly, would have her stay again tonight for re-evaluation in the morning. - Vitals & Intake/Output Vital Signs: Vital Signs Temperature 97.7 F 08/25/19 06:57 Pulse Rate 85 08/25/19 06:57 Respiratory Rate 22 08/25/19 06:57 Blood Pressure 127/78 08/25/19 06:57 O2 Sat by Pulse Oximetry 96 08/25/19 07:49 Intake & Output: Intake & Output 08/22/19 08/23/19 08/24/19 08/25/19 11:59 11:59 11:59 11:59 Intake Total 1552 Output Total 1500 Balance 52 Weight 89.5 kg - Lab Result Diagrams: 08/24/19 16:31 08/24/19 16:31 Lab Results-Last 24 Hrs: Lab Results-Last 24 Hours 08/24/19 08/24/19 08/24/19 Range/Units 16:31 16:31 17:15 WBC 7.5 (4.0-10.5) K/mm3 RBC 4.31 (4.1-5.4) M/mm3 Hgb 12.0 (12.0-16.0) gm/dl Hct 37.6 (35-47) % MCV 87.2 (78-100) fl MCH 27.8 (26-32) pg MCHC 31.9 L (32-36) g/dl RDW 15.0 H (11.5-14.0) % Plt Count 318 (150-450) K/mm3 MPV 10.6 (7.5-11.0) fl Gran % 51.8 (36.0-66.0) % Eos # (Auto) 0.28 (0-0.5) Absolute Lymphs (auto) 2.28 (1.0-4.6) Absolute Monos (auto) 1.02 (0.0-1.3) Lymphocytes % 30.4 (24.0-44.0) % Monocytes % 13.6 H (0.0-12.0) % Eosinophils % 3.7 (0.00-5.0) % Basophils % 0.5 (0.0-0.4) % Absolute Granulocytes 3.88 (1.4-6.9) Basophils # 0.04 (0-0.4) Sodium 139 (137-145) mmol/L Potassium 3.5 (3.5-5.1) mmol/L Chloride 109 H (98-107) mmol/L Carbon Dioxide 22 (22-30) mmol/L Anion Gap 11.5 (5-15) MEQ/L BUN 12 (7-17) mg/dL Creatinine 0.75 (0.52-1.04) mg/dL Estimated GFR > 60.0 ML/MIN Glucose 102 (74-106) mg/dL Calcium 8.9 (8.4-10.2) mg/dL Total Bilirubin 0.40 (0.2-1.3) mg/dL AST 32 (14-36) U/L ALT 21 (0-35) U/L Alkaline Phosphatase 68 (38-126) U/L Serum Total Protein 7.3 (6.3-8.2) g/dL Albumin 3.9 (3.5-5.0) g/dL Urine Color YELLOW (YELLOW) Urine Appearance CLEAR (CLEAR) Urine pH 5.0 (5-6) Ur Specific [place] 1.008 (1.005-1.025) Urine Protein NEGATIVE (Negative) Urine Ketones NEGATIVE (NEGATIVE) Urine Blood SMALL (0-5) Joey/ul Urine Nitrite NEGATIVE (NEGATIVE) Urine Bilirubin NEGATIVE (NEGATIVE) Urine Urobilinogen NEGATIVE (0-1) mg/dL Ur Leukocyte Esterase NEGATIVE (NEGATIVE) Urine WBC (Auto) NONE (0-5) /HPF Urine RBC (Auto) NONE (0-2) /HPF U Epithel Cells (Auto) NONE (FEW) /HPF Urine Bacteria (Auto) NONE (NEGATIVE) /HPF Urine Mucus (Auto) SLIGHT (NEGATIVE) /HPF Urine Culture Reflexed ORDERED SEPARATELY (NO) Urine Glucose NEGATIVE (NEGATIVE) mg/dL Micro Results-Entire Visit: Microbiology 08/24/19 17:15 Urine Culture - Preliminary Urine, Void NO GROWTH TO DATE - Procedures and Test Procedures and Tests throughout Hospitalization: Therapy Orders & Screens 08/24/19 17:08 Smoking Cessation Education ONCE Comment: Diagnosis: migraine/nausea and vomiting Smoking Status: Current every day smoker How long have you smoked: 37 Have you smoked in the past 12 months: Yes Approximately how many cigarettes per day: 20 Do you dip or chew tobacco: No - Discharge Disposition: Home, Self-Care Condition: Stable Prescriptions: No Action Gabapentin 800 mg PO QID PRN PRN PRN Reason: Pain Aspirin/Acetaminophen/Caffeine [Excedrin Migraine Caplet] 2 tab PO Q6H PRN PRN Reason: Migraines Venlafaxine HCl [Venlafaxine HCl ER] 150 mg PO HS Baclofen 10 mg PO BID Follow up with: MATT ALLISON [Primary Care Provider] - 1 Week
[2019-08-25] MEDS: LIORESAL 10 MG PO SCH ×2 (12:10→21:05)
[2019-08-25] MEDS: Neurontin 400 MG PO SCH ×4 (12:10→21:05)
[2019-08-25] MEDS: Effexor XR 75 MG PO SCH (21:05)
[2019-08-26] MEDS: DILAUDID 2 MG INJECTION IV PRN ×2 (02:37→06:58)
[2019-08-26 05:28] VITALS: PULSE 95
[2019-08-26] MEDS: Phenergan 25 MG INJ IV PRN (06:58)
[2019-08-26 08:35] VITALS: BP 127/69; O2SAT 93
--- NOTE | 2019-08-26 09:38 | PCM.NOTE ---
Date and Time: 08/26/19932 Subjective Assessment: Patient is asking to go home ,states her headache has improved ,still dull pain at both temples and no vomiting just a little nauseated but able to eat and drink. States she has [place] at home for recent rotator cuff surgery and also has phenergan. States she thinks the headache will resolve if she can go home and sleep it off.No new c/o. Objective Exam General Appearance: no apparent distress Neurologic Exam: alert, oriented x 3, cooperative, normal mood/affect Skin Exam: normal color, warm, dry Wound Assessment: Skin/Wound Assessment Wound/Incision Assessment Start: 08/24/19 17: 08 Text: Status: Active Freq: Q6H Protocol: Document 08/26/19 02:56 AW (Rec: 08/26/19 02:57 AW [id number]) Wound/Incision Assessment Right Shoulder Wound Assessment Shift Assessment Wound Type Incision Drainage Amount None General Appearance Well Approximated Surrounding Tissue [place] Wound Photo Photo Taken No Eye Exam: PERRL, EOMI, eyes nml inspection Ears, Nose, Throat Exam: other (no nasal discharge) Neck Exam: normal inspection, non-tender Respiratory Exam: other (no dyspnea,no cough) Cardiovascular Exam: regular rate/rhythm Gastrointestinal/Abdomen Exam: soft (nontender) Extremity Exam: other (trace ankle edema) OBJECTIVE DATA Vital Signs: Vital Signs - 24 hr Temp Pulse Resp BP Pulse Ox 08/26/19 07:00 98.2 F 95 H 18 127/69 93 L 08/26/19 06:45 90 L 08/26/19 03:00 98.1 F 95 H 18 121/63 94 L 08/25/19 23:00 98.2 F 86 16 119/66 96 08/25/19 19:15 98.2 F 110 H 20 126/78 94 L 08/25/19 18:54 94 L 08/25/19 15:00 98 F 97 H 20 141/69 96 08/25/19 11:00 97.2 F 93 H 18 130/60 94 L Pain Assessment - Last Documented Pain Intensity 4 Pain Scale Used 0-10 Pain Scale Intake and Output: Intake & Output 08/23/19 08/24/19 08/25/19 08/26/19 11:59 11:59 11:59 11:59 Intake Total 1792 4243 Output Total 2600 2300 Balance -808 1943 Weight 89.5 kg Assessment/Plan (1) Intractable migraine Current Visit: Yes Status: Resolved Onset Date: ~04/21/18 Qualifiers: Migraine type: with aura Status migrainosus presence: with status migrainosus Qualified Code(s): G43.111 - Migraine with aura, intractable, with status migrainosus Assessment & Plan: resolving after IV fluids and IV pain medication. Code(s): G43.919 - MIGRAINE, UNSP, INTRACTABLE, WITHOUT STATUS MIGRAINOSUS (2) Nausea Current Visit: Yes Status: Resolved Onset Date: ~04/21/18 Assessment & Plan: patient has phenergan to take at home if needs,is eating and drinking ok today. Code(s): R11.0 - NAUSEA (3) Hx of rotator cuff surgery Current Visit: Yes Status: Resolved Assessment & Plan: is doing well ,still under the care of her Ortho surg. Code(s): Z98.890 - OTHER SPECIFIED POSTPROCEDURAL STATES
--- NOTE | 2019-08-26 09:50 | PCM.DCORD ---
- Discharge Disposition: Home, Self-Care Condition: Good Prescriptions: Continue Gabapentin 800 mg PO QID PRN PRN PRN Reason: Pain Aspirin/Acetaminophen/Caffeine [Excedrin Migraine Caplet] 2 tab PO Q6H PRN PRN Reason: Migraines Venlafaxine HCl [Venlafaxine HCl ER] 150 mg PO HS Baclofen 10 mg PO BID Follow up with: MATT ALLISON [Primary Care Provider] - 1 Week
== END 2019-08-26 10:30 | disposition home or self-care (01) ==
LOC: MED SURG 15:34
PROVIDERS: ADMIT Family Medicine; ATTEND Family Medicine
DX: G43.919 Migraine, unspecified, intractable, without status migrainosus (principal); R11.0 Nausea; G35 Multiple sclerosis; Z98.890 Other specified postprocedural states
CPT/HCPCS: 36415; 80053; 81001; 85025; 87086; 93268; 94762; G0378; J1170; J2550; A9270-GY

== ENCOUNTER 2020-04-16 19:31 | Emergency (ER) | payer OTHER, MEDICARE ==
[2020-04-16 19:48] VITALS: BP 161/91; PULSE 92; O2SAT 97
[2020-04-16] MEDS ORDERED: Hydromorphone 1 mg/ml Injection IM ONE (19:55)
[2020-04-16] MEDS ORDERED: PHENERGAN 25 MG PO ONE (19:56)
[2020-04-16] MEDS ORDERED: PHENERGAN 25 MG ONE (20:03)
[2020-04-16] MEDS ORDERED: Hydromorphone 1 mg/ml Injection ONE (20:04)
--- NOTE | 2020-04-16 20:23 | ERPHSYRPT ---
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 Allen and she ordered X-Rays in which I completed at [facility] but never heard back and as the night has went on the pain has gotten untolerable." Triage Nursing Assessment: Patient arrived to ER with in W/C. Patient unable to bear weight to right foot R/T injury that happened today. Patient A/O times 4. Right foot/ankle with 1+ non-pitting edema noted. Slight bruising to outside of right foot. + pedal pulse noted upon palpitation. Cap refill to right foot < 3 seconds. Foot warm to touch. Patient unable to perform ROM R/T pain and discomfort. Palpable pulses noted above injury. Patient able to wiggle toes. Patient states that her toes/foot has been tingling and going numb intermittently. Ice pack placed on foot with pillow case between skin. Patient states she has been using ice and heat on right foot throughout day but it hasn't been helping. Physician History: Patient is a 54-year-old female presents to our ED with complaints of right ankle pain and swelling. Patient stepped into a hole today. After the injury patient ambulated on her foot. Patient went to see her primary care doctor who ordered a x-ray. The x-rays were performed however the x-ray read was not available to the patient. Patient requesting the results of her imaging study. No interval trauma. Pain described as an ache that is well localized to the lateral aspect of the right ankle. Pain described as an ache. No radiation. Pain worse with movement and palpation. Pain improves with rest. Patient denies other injuries. No BHT or LOC. No neck pain. No chest pain or shortness of breath. The fall was not associated with neuro or cardiovascular symptomology. Significant other at bedside. They voiced no other complaints concerns at this time. Method of Injury: twisted Occurred: this afternoon Quality: constant Severity of Pain-Max: moderate Severity of Pain-Current: mild Lower Extremities Pain: foot: right, ankle: right Modifying Factors: Improves With: movement, rest Associated Symptoms: none Allergies/Adverse Reactions: codeine Allergy (Intermediate, Verified 04/16/20 19:43) Itching latex Allergy (Mild, Verified 04/16/20 19:43) Hives zolmitriptan [From Zomig] Allergy (Mild, Verified 04/16/20 19:43) HEART RACE ketorolac tromethamine [From Toradol] Allergy (Verified 04/16/20 19:43) Hives ondansetron HCl [From Zofran] Allergy (Verified 04/16/20 19:43) Swelling sumatriptan [From Imitrex] Allergy (Verified 04/16/20 19:43) HEART RACE POUNDING HEART Home Medications: Gabapentin 800 mg PO QID PRN PRN 01/21/17 [History] Venlafaxine HCl [Venlafaxine HCl ER] 150 mg PO HS 04/21/18 [History] Baclofen 10 mg PO BID 12/06/18 [History] Hx Tetanus, Diphtheria Vaccination/Date Given: Yes Hx Influenza Vaccination/Date Given: No Hx Pneumococcal Vaccination/Date Given: Yes Immunizations Up to Date: Yes Travel Risk - International Travel Have you traveled outside of the country in past 3 weeks: No - Coronavirus Screening Are you exhibiting any of the following symptoms?: No Close contact with a COVID-19 positive Pt in past 14-21 Days: No - Review of Systems Constitutional: No Symptoms, No Fever, No Chills Eyes: No Symptoms Ears, Nose, & Throat: No Symptoms Respiratory: No Symptoms, No Cough, No Dyspnea Cardiac: No Symptoms, No Chest Pain, No Edema, No Syncope Abdominal/Gastrointestinal: No Symptoms, No Abdominal Pain, No Nausea, No Vomiting, No Diarrhea Genitourinary Symptoms: No Symptoms, No Dysuria Musculoskeletal: No Symptoms, No Back Pain, No Neck Pain Skin: No Symptoms, No Rash Neurological: No Symptoms, No Dizziness, No Focal Weakness, No Sensory Changes Psychological: No Symptoms Endocrine: No Symptoms Hematologic/Lymphatic: No Symptoms Immunological/Allergic: No Symptoms All Other Systems: Reviewed and Negative - Past Medical History Pertinent Past Medical History: Yes Neurological History: Migraines, Peripheral Neuropathy ENT History: No Pertinent History Cardiac History: No Pertinent History Respiratory History: Pneumonia Endocrine Medical History: No Pertinent History Musculoskeletal History: No Pertinent History GI Medical History: No Pertinent History History: No Pertinent History Psycho-Social History: No Pertinent History Female Reproductive Disorders: No Pertinent History Other Medical History: Multiple Sclerosis 2007 - Past Surgical History Past Surgical History: Yes Neuro Surgical History: No Pertinent History Cardiac: No Pertinent History Respiratory: No Pertinent History Gastrointestinal: Cholecystectomy Genitourinary: No Pertinent History Musculoskeletal: Other Female Surgical History: No Pertinent History Other Surgical History: rotator cuff repair, right - Social History Smoking Status: Current every day smoker How long have you smoked: 30 years Exposure to second hand smoke: Yes Drug Use: none Patient Lives Alone: No Significant Family History: cancer (M Breast Ca. Father lung ca) - Female History Hx Last Menstrual Period: POST Hx Now: No - Nursing Vital Signs Nursing Vital Signs: Initial Vital Signs Temperature 98.4 F 04/16/20 19:46 Pulse Rate 92 H 04/16/20 19:46 Respiratory Rate 18 04/16/20 19:46 Blood Pressure 161/91 04/16/20 19:46 O2 Sat by Pulse Oximetry 97 04/16/20 19:46 Pain Scale Pain Intensity 7 - Physical Exam General Appearance: no apparent distress, alert Eyes, Ears, Nose, Throat Exam: moist mucous membranes Neck Exam: non-tender, supple Cardiovascular/Respiratory Exam: chest non-tender, normal breath sounds, regular rate/rhythm, no respiratory distress Gastrointestinal/Abdominal Exam: non-tender, guarding Back Exam: normal inspection, No vertebral tenderness Hips Exam: bilateral: non-tender, normal inspection, normal range of motion Legs Exam: bilateral leg: non-tender, normal inspection, normal range of motion Knees Exam: bilateral knee: non-tender, normal inspection, normal range of motion Ankle Exam: right ankle: limited range of motion, pain, soft tissue tenderness, swelling (Tenderness to palpation at the area of the ATFL ligament. Overlying soft tissue intact. There is swelling at this location as well. No open or draining lesions.), left ankle: non-tender, normal inspection, normal range of motion Foot Exam: right foot: pain, soft tissue tenderness, swelling (Some pain swelling at the proximal anterolateral aspect of the foot. Overlying soft tissue intact. No signs of trauma.), left foot: non-tender, normal inspection, normal range of motion, bilateral foot: other (The involved lower extremity is neurovascular intact distally. The foot is warm pink well perfused. Cap refill less than 2 seconds. PT DP pulse palpable.) Neuro/Tendon Exam: normal sensation, normal motor functions Mental Status Exam: alert, oriented x 3, cooperative Skin Exam: normal color, warm, dry SpO2 Interpretation: normal SpO2: 97 O2 Delivery: Room Air - Course Nursing assessment & vital signs reviewed: Yes - Radiology Exams Foot X-ray Interpretation: Teleradiologist Report (Small heel spur and navicular cuboid accessory ossicle. No other bony articular or soft tissue abnormalities.) Ankle X-ray Interpretation: Interpreted by me (View right ankle demonstrates mild soft tissue swelling and a small heel spur. No other bony articular or soft tissue abnormalities.) Ordered Tests: Medication Summary Discontinued Medications Generic Name Dose Route Start Last Admin Trade Name Freq PRN Reason Stop Dose Admin Hydromorphone HCl 0.5 mg 04/16/20 19:55 04/16/20 20:05 Hydromorphone 1 Mg/Ml Injection IM 04/16/20 19:56 0.5 mg STAT ONE Administration Hydromorphone HCl Confirm 04/16/20 20:04 Hydromorphone 1 Mg/Ml Injection Administered 04/16/20 20:05 Dose 1 mg .ROUTE .STK-MED ONE Promethazine HCl 25 mg 04/16/20 19:56 04/16/20 20:05 Phenergan 25 Mg PO 04/16/20 19:57 25 mg STAT ONE Administration Promethazine HCl Confirm 04/16/20 20:03 Phenergan 25 Mg Administered 04/16/20 20:04 Dose 25 mg .ROUTE .STK-MED ONE - Progress Progress: improved Progress Note: 04/16/20 20:31 X-rays were ordered per Dr. Allen. We simply obtain the report for the x-rays that were done prior to patient's arrival in our ED. Those x-rays revealed no fracture or dislocation of the foot or ankle. Per patient's request she received IM dose of Dilaudid as well as Phenergan p.o. Pain well controlled at this time. X-ray negative for fracture dislocation. Patient declined crutches as she has crutches at home. Patient states is ready for discharge. Patient agrees to follow-up with her primary care doctor within 48 hours for reevaluation. Patient voices no other complaints or concerns at this time and is requesting discharge. 04/16/20 20:32 Counseled pt/family regarding: diagnosis, need for follow-up, rad results - Departure Departure Disposition: Home Clinical Impression: Right ankle sprain, Heel spur Condition: Stable Critical Care Time: No Referrals: MATT ALLEN [Primary Care Provider] - Additional Instructions: Discharge/Care Plan ETHEL SHAVER was seen on 04/16/20 in the Emergency Room. The patient was counseled regarding Diagnosis,Lab results, Imaging studies, need for follow up and when to return to the Emergency Room. Prescriptions given: Discharge Note I have spoken with the patient and/or caregivers. I have explained the patient's condition, diagnosis and treatment plan based on the information available to me at this time. I have answered the patient's and/or caregiver's questions and addressed any concerns. The patient and/or caregivers have as good understanding of the patient's diagnosis, condition and treatment plan as can be expected at this point. The vital signs have been stable. The patient's condition is stable and appropriate for discharge from the emergency department. The patient will pursue further outpatient evaluation with the primary care physician or other designated or consulting physician as outlined in the discharge instructions. The patient and/or caregivers are agreeable to this plan of care and follow-up instructions have been explained in detail. The patient and/or caregivers have received these instruction. The patient/and or caregivers are aware that any significant change in condition or worsening of symptoms should prompt an immediate return to this or the closest emergency department or call 911.
== END 2020-04-16 20:40 | disposition home or self-care (01) ==
LOC: ED 19:31
DX: S93.401A Sprain of unspecified ligament of right ankle, initial encounter (principal); X37.1XXA Tornado, initial encounter; Y93.89 Activity, other specified; Y92.89 Other specified places as the place of occurrence of the external cause; M25.571 Pain in right ankle and joints of right foot; G62.9 Polyneuropathy, unspecified; Z72.0 Tobacco use; M77.31 Calcaneal spur, right foot
CPT/HCPCS: 73610; 73630; 96372; 99283; J1170; A9270-GY

== ENCOUNTER 2020-04-17 14:28 | Observation (INO) | payer OTHER, MEDICARE ==
[2020-04-17] MEDS ORDERED: Sodium Chloride 0.9% 1000 ML 1,000 ML IV SCH (15:45)
[2020-04-17] MEDS: Hydromorphone 1 mg/ml Injection IV PRN ×2 (15:59→20:24)
[2020-04-17] MEDS: Phenergan 25 MG INJ IV PRN ×2 (15:59→20:24)
[2020-04-17] MEDS: Lactated Ringers 1,000 ML IV SCH (16:00)
[2020-04-17 16:32] LABS: Absolute Neutrophil Ct (ANC) 4.37 (1.4-6.9); BASOPHIL % 0.3 % (0.0-0.4); Basophil (Absolute #) 0.02 (0-0.4); Eosinophil % 3.1 % (0.00-5.0); Eosinophil (Absolute #) 0.24 (0-0.5); Hematocrit 42.3 % (35-47); Hemoglobin 13.3 gm/dl (12.0-16.0); Lymphocyte (Absolute #) 2.33 (1.0-4.6); Lymphocytes % 29.6 % (24.0-44.0); Mean Corpuscular Hemoglobin 27.4 pg (26-32); Mean Corpuscular Hgb Concent. 31.4 g/dl (32-36); Mean Platelet Volume 11.7 fl (7.5-11.0); Monocytes % 11.5 % (0.0-12.0); Neutrophil % 55.5 % (36.0-66.0); Platelet Count 226 K/mm3 (150-450); Red Blood Count 4.86 M/mm3 (4.1-5.4); Red Cell Distribution Width 16.2 % (11.5-14.0); White Blood Count 7.9 K/mm3 (4.0-10.5)
[2020-04-17 16:45] LABS: ALBUMIN 4.1 g/dL (3.5-5.0); ALKALINE PHOSPHATASE 82 U/L (38-126); ANION GAP 9.3 MEQ/L (5-15); BLOOD UREA NITROGEN 8 mg/dL (7-17); CHLORIDE 109 mmol/L (98-107); Calcium 9.3 mg/dL (8.4-10.2); Carbon Dioxide 25 mmol/L (22-30); Creatinine 1 0.73 mg/dL (0.52-1.04); EST GLOMERULAR FILTRATION RATE > 60.0 ML/MIN; Glucose 99 mg/dL (74-106); Potassium 3.7 mmol/L (3.5-5.1); SGOT/AST 30 U/L (14-36); SGPT/ALT 25 U/L (0-35); SODIUM 139 mmol/L (137-145); Total Protein 7.3 g/dL (6.3-8.2)
[2020-04-17 18:16] LABS: Appearance CLEAR (CLEAR); Bilirubin NEGATIVE (NEGATIVE); Blood SMALL Ery/ul (0-5); Epithelial Cells RARE /HPF (FEW); Glucose NEGATIVE (NEGATIVE); Ketones NEGATIVE (NEGATIVE); Leukocyte Esterase NEGATIVE (NEGATIVE); Mucus SLIGHT /HPF (NEGATIVE); Nitrite NEGATIVE (NEGATIVE); Protein,Urine Dip NEGATIVE (Negative); Specific Gravity 1.013 (1.005-1.025); Urobilinogen NEGATIVE mg/dL (0-1); WBC 0-2 /HPF (0-5)
[2020-04-17 18:18] LABS: Bacteria NONE SEEN /HPF (NEGATIVE)
[2020-04-17] MEDS: Pepcid 20 MG PO SCH (20:56)
[2020-04-17] MEDS: Neurontin 400 MG PO SCH (20:56)
[2020-04-17] MEDS: Ambien 10 MG PO SCH (20:57)
[2020-04-17] MEDS ORDERED: NON-FORMULARY ITEM (Gabapentin [Gabapentin] 800 MG) PO SCH (22:00)
[2020-04-17] MEDS ORDERED: CIMETIDINE 400 MG PO SCH (22:00)
[2020-04-18] MEDS: Hydromorphone 1 mg/ml Injection IV PRN ×5 (01:09→20:03)
[2020-04-18] MEDS: Phenergan 25 MG INJ IV PRN ×3 (04:28→17:11)
[2020-04-18] MEDS: Lactated Ringers 1,000 ML IV SCH ×2 (04:28→15:35)
--- NOTE | 2020-04-18 08:56 | PCM.HP ---
History of Present Illness - Chief Complaint Chief Complaint: MIGRAINE History of Present Illness: is a 54 year old female pt of mine from [facility] with MS and chronic migraines who was seen in office 2d ago with back pain and severe R ankle sprain. She did have a headache at that time but said it was manageable. Yesterday morning she awoke with worse REHMAN, bifrontal, and called in to office and was directly admitted. Labs have been unremarkable. She is still having 7/10 pain, now bilat parietal areas. Would like to eat crackers. Tolerating jello. Afebrile. Still c/o R ankle pain. Not noticing the back pain currently. - Review of Systems Abdominal/Gastrointestinal: Nausea Musculoskeletal: Back Pain, Injury, Joint Pain (R ankle/foot) Neurological: Dizziness (intermittent lightheadedness), Headache Psychological: Anxiety (excited her son is visiting soon) Medications & Allergies Home Medications: Home Medication List Gabapentin 800 mg PO QID 01/21/17 [History Confirmed 04/17/20] Cimetidine 400 mg PO BID 04/17/20 [History Confirmed 04/17/20] Zolpidem Tartrate [Ambien] 10 mg PO HS 04/17/20 [History Confirmed 04/17/20] Allergies/Adverse Reactions: Allergies Allergy/AdvReac Type Severity Reaction Status Date / Time codeine Allergy Intermediate Itching Verified 04/17/20 15:53 latex Allergy Mild Hives Verified 04/17/20 15:53 zolmitriptan [From Zomig] Allergy Mild HEART RACE Verified 04/17/20 15:53 ketorolac tromethamine Allergy Hives Verified 04/17/20 15:53 [From Toradol] ondansetron HCl [From Zofran] Allergy Swelling Verified 04/17/20 15:53 sumatriptan [From Imitrex] Allergy HEART RACE Verified 04/17/20 15:53 - Past Medical History Past Medical History: Yes Neurological History: Migraines, Peripheral Neuropathy ENT History: No Pertinent History Cardiac History: No Pertinent History Respiratory History: Pneumonia Endocrine Medical History: No Pertinent History Musculoskelatal History: No Pertinent History GI Medical History: No Pertinent History History: No Pertinent History Pyscho-Social History: No Pertinent History Reproductive Disorders: No Pertinent History Comment: Multiple Sclerosis 2006 - Past Surgical History Past Surgical History: Yes Neuro Surgical History: No Pertinent History Cardiac History: No Pertinent History Respiratory Surgery: No Pertinent History GI Surgical History: Cholecystectomy Genitourinary Surgical Hx: No Pertinent History Musculskeletal Surgical Hx: Other Female Surgical History: No Pertinent History Other Surgical History: rotator cuff repair, right - Social History Smoking Status: Current every day smoker How long have you smoked: 30 YEARS Exposure to second hand smoke: No Alcohol: None Drug Use: none Significant Family History: cancer (M Breast Ca. Father lung ca) - Physical Exam Vital Signs: Vital Signs - 24 hr Temp Pulse Resp BP BP Pulse Ox 04/18/20 07:09 97.7 F 88 14 144/70 93 L 04/18/20 06:33 92 L 04/18/20 04:00 97.6 F 72 19 143/70 95 04/17/20 23:50 98.1 F 83 18 136/65 97 04/17/20 19:39 98.1 F 66 19 130/74 99 04/17/20 19:37 98.1 F 66 19 130/74 99 04/17/20 19:15 96 04/17/20 16:33 93 L 04/17/20 15:30 98.1 F 72 16 142/75 98 04/17/20 15:18 98.2 F 72 20 142/72 98 General Appearance: mild distress (in darkened room), alert Neurologic Exam: alert, oriented x 3, cooperative Eye Exam: eyes nml inspection Ears, Nose, Throat Exam: moist mucous membranes Neck Exam: normal inspection Respiratory Exam: normal breath sounds, lungs clear, No crackles/rales, No rhonchi, No wheezing Cardiovascular Exam: regular rate/rhythm, normal heart sounds, No murmur Gastrointestinal/Abdomen Exam: soft, normal bowel sounds, No tenderness, No distention, No mass, No guarding, No rebound Back Exam: normal inspection, No rash Extremity Exam: pedal edema, swelling (R ankle and lateral foot edematous (tr) and tender; no erythema or lesions) Skin Exam: normal color, warm, dry, No rash Results - Labs Lab/Micro Results: Lab Results-Last 24 Hours 04/17/20 04/17/20 04/17/20 Range/Units 16:20 16:20 16:40 WBC 7.9 (4.0-10.5) K/mm3 RBC 4.86 (4.1-5.4) M/mm3 Hgb 13.3 (12.0-16.0) gm/dl Hct 42.3 (35-47) % MCV 87.0 (78-100) fl MCH 27.4 (26-32) pg MCHC 31.4 L (32-36) g/dl RDW 16.2 H (11.5-14.0) % Plt Count 226 (150-450) K/mm3 MPV 11.7 H (7.5-11.0) fl Gran % 55.5 (36.0-66.0) % Eos # (Auto) 0.24 (0-0.5) Absolute Lymphs (auto) 2.33 (1.0-4.6) Absolute Monos (auto) 0.90 (0.0-1.3) Lymphocytes % 29.6 (24.0-44.0) % Monocytes % 11.5 (0.0-12.0) % Eosinophils % 3.1 (0.00-5.0) % Basophils % 0.3 (0.0-0.4) % Absolute Granulocytes 4.37 (1.4-6.9) Basophils # 0.02 (0-0.4) Sodium 139 (137-145) mmol/L Potassium 3.7 (3.5-5.1) mmol/L Chloride 109 H (98-107) mmol/L Carbon Dioxide 25 (22-30) mmol/L Anion Gap 9.3 (5-15) MEQ/L BUN 8 (7-17) mg/dL Creatinine 0.73 (0.52-1.04) mg/dL Estimated GFR > 60.0 ML/MIN Glucose 99 (74-106) mg/dL Calcium 9.3 (8.4-10.2) mg/dL Total Bilirubin 0.30 (0.2-1.3) mg/dL AST 30 (14-36) U/L ALT 25 (0-35) U/L Alkaline Phosphatase 82 (38-126) U/L Serum Total Protein 7.3 (6.3-8.2) g/dL Albumin 4.1 (3.5-5.0) g/dL Urine Color YELLOW (YELLOW) Urine Appearance CLEAR (CLEAR) Urine pH 6.0 (5-6) Ur Specific [place] 1.013 (1.005-1.025) Urine Protein NEGATIVE (Negative) Urine Ketones NEGATIVE (NEGATIVE) Urine Blood SMALL (0-5) Joey/ul Urine Nitrite NEGATIVE (NEGATIVE) Urine Bilirubin NEGATIVE (NEGATIVE) Urine Urobilinogen NEGATIVE (0-1) mg/dL Ur Leukocyte Esterase NEGATIVE (NEGATIVE) Urine WBC (Auto) 0-2 (0-5) /HPF Urine RBC (Auto) 3-5 (0-2) /HPF U Epithel Cells (Auto) RARE (FEW) /HPF Urine Bacteria (Auto) NONE SEEN (NEGATIVE) /HPF Urine Mucus (Auto) SLIGHT (NEGATIVE) /HPF Urine Culture Reflexed NO (NO) Urine Glucose NEGATIVE (NEGATIVE) mg/dL Microbiology 04/17/20 16:40 Urine Culture - Preliminary Urine, Void NO GROWTH TO DATE - Other Procedures and Tests Respiratory Therapy 04/18/20 08:17 Oxygen NASAL CANNULA 2 lpm Assessment/Plan (1) Intractable migraine Current Visit: No Status: Resolved Onset Date: ~04/21/18 Qualifiers: Migraine type: without aura Status migrainosus presence: with status migrainosus Qualified Code(s): G43.011 - Migraine without aura, intractable, with status migrainosus Assessment & Plan: On IV dilaudid and antiemetic currently. Will add IV steroid. Code(s): G43.919 - MIGRAINE, UNSP, INTRACTABLE, WITHOUT STATUS MIGRAINOSUS (2) Right ankle sprain Current Visit: Yes Status: Acute Qualifiers: Encounter type: subsequent encounter Involved ligament of ankle: unspecified ligament Qualified Code(s): S93.401D - Sprain of unspecified ligament of right ankle, subsequent encounter Assessment & Plan: Becky has been called in to [facility] for when pt is discharged to home. Code(s): S93.401A - SPRAIN OF UNSPECIFIED LIGAMENT OF RIGHT ANKLE, INIT ENCNTR (3) Multiple sclerosis Current Visit: No Status: Chronic Code(s): G35 - MULTIPLE SCLEROSIS
[2020-04-18] MEDS: Neurontin 400 MG PO SCH ×4 (09:32→19:55)
[2020-04-18] MEDS: Pepcid 20 MG PO SCH ×2 (09:32→19:55)
[2020-04-18] MEDS: solu-MEDROL 125 MG IV SCH ×2 (09:32→19:55)
[2020-04-18] MEDS: Ambien 10 MG PO SCH (19:55)
[2020-04-19] MEDS: Phenergan 25 MG INJ IV PRN (03:39)
[2020-04-19] MEDS: Hydromorphone 1 mg/ml Injection IV PRN ×2 (03:39→07:50)
[2020-04-19 07:44] VITALS: BP 121/74; PULSE 84; O2SAT 95
--- NOTE | 2020-04-19 08:24 | PCM.DS ---
Discharge Summary Date of Admission: 04/17/20 15:14 Admitting Physician: MATT JAVED Primary Care Provider: MATT JAVED Allergies Allergies codeine Allergy (Intermediate, Verified 04/17/20 15:53) Itching latex Allergy (Mild, Verified 04/17/20 15:53) Hives zolmitriptan [From Zomig] Allergy (Mild, Verified 04/17/20 15:53) HEART RACE ketorolac tromethamine [From Toradol] Allergy (Verified 04/17/20 15:53) Hives ondansetron HCl [From Zofran] Allergy (Verified 04/17/20 15:53) Swelling sumatriptan [From Imitrex] Allergy (Verified 04/17/20 15:53) [facility] Summary - Hospital Course Hospital Course: Pt is a 54 yo female pt with MS and chronic migraine who was admitted directly for intractable migraine. She had been seen in office for sprained ankle and back pain; no c/o back pain here until this morning, as her headache is much better. Her ankle is now weight-bearing and not painful (although still swollen). She is tolerating po. Labs were non acute. UA neg for UTI. She was given IV dilaudid, antiemetic, and steroids. WIll be sent home on her home meds. - Vitals & Intake/Output Vital Signs: Vital Signs Temperature 98.1 F 04/19/20 07:43 Pulse Rate 84 04/19/20 07:43 Respiratory Rate 18 04/19/20 07:43 Blood Pressure 121/74 04/19/20 07:43 O2 Sat by Pulse Oximetry 95 04/19/20 07:43 Intake & Output: Intake & Output 04/16/20 04/17/20 04/18/20 04/19/20 11:59 11:59 11:59 11:59 Intake Total 2501 680 Output Total 2600 3500 Balance -99 -2820 Weight 90.4 kg - Lab Result Diagrams: 04/17/20 16:20 04/17/20 16:20 Micro Results-Entire Visit: Microbiology 04/17/20 16:40 Urine Culture - Preliminary Urine, Void NO GROWTH TO DATE - Procedures and Test Procedures and Tests throughout Hospitalization: Therapy Orders & Screens 04/17/20 15:53 Smoking Cessation Education ONCE Comment: Diagnosis: MIGRAINE Smoking Status: Current every day smoker How long have you smoked: 30 YEARS Have you smoked in the past 12 months: Yes Approximately how many cigarettes per day: 20 Do you dip or chew tobacco: No 04/18/20 08:17 Oxygen NASAL CANNULA 2 lpm Comment: Diagnosis: MIGRAINE Discharge Exam General Appearance: no apparent distress, alert Neurologic Exam: oriented x 3, cooperative Eye Exam: eyes nml inspection Ears, Nose, Throat Exam: moist mucous membranes Neck Exam: normal inspection Respiratory Exam: normal breath sounds, lungs clear, No crackles/rales, No rhonchi, No wheezing Cardiovascular Exam: regular rate/rhythm, normal heart sounds, No murmur Extremity Exam: swelling (R ankle/proximal foot) Skin Exam: normal color, warm, dry, No rash Final Diagnosis/Problem List - Final Discharge Diagnosis/Problem (1) Intractable migraine Current Visit: No Status: Resolved Onset Date: ~04/21/18 Assessment & Plan: Much improved. Home today. Code(s): G43.919 - MIGRAINE, UNSP, INTRACTABLE, WITHOUT STATUS MIGRAINOSUS (2) Right ankle sprain Current Visit: Yes Status: Acute Assessment & Plan: improved Code(s): S93.401A - SPRAIN OF UNSPECIFIED LIGAMENT OF RIGHT ANKLE, INIT ENCNTR (3) Multiple sclerosis Current Visit: No Status: Chronic Code(s): G35 - MULTIPLE SCLEROSIS - Discharge Disposition: Home, Self-Care Condition: Good Prescriptions: Continue Gabapentin 800 mg PO QID Cimetidine 400 mg PO BID Zolpidem Tartrate [Ambien] 10 mg PO HS Follow up with: MATT JAVED [Primary Care Provider] - 04/29/21 11:15 am
== END 2020-04-19 09:00 | disposition home or self-care (01) ==
LOC: MED SURG 15:14
PROVIDERS: ADMIT Family Medicine; ATTEND Family Medicine
DX: G43.919 Migraine, unspecified, intractable, without status migrainosus (principal); G35 Multiple sclerosis; S93.401D Sprain of unspecified ligament of right ankle, subsequent encounter; R42 Dizziness and giddiness; Z79.899 Other long term (current) drug therapy
CPT/HCPCS: 36415; 80053; 81001; 85025; 87086; 93268; 94762; G0378; J1170; J2550; J2930; A9270-GY

== ENCOUNTER 2020-10-30 12:37 | Emergency (ER) | payer OTHER, MEDICARE ==
[2020-10-30 13:02] LABS: Absolute Neutrophil Ct (ANC) 7.01 (1.4-6.9); BASOPHIL % 0.3 % (0.0-0.4); Basophil (Absolute #) 0.03 (0-0.4); Eosinophil % 1.5 % (0.00-5.0); Eosinophil (Absolute #) 0.15 (0-0.5); Hematocrit 44.8 % (35-47); Hemoglobin 14.2 gm/dl (12.0-16.0); Lymphocyte (Absolute #) 2.01 (1.0-4.6); Lymphocytes % 19.9 % (24.0-44.0); Mean Cell Volume 88.2 fl (78-100); Mean Corpuscular Hgb Concent. 31.7 g/dl (32-36); Mean Platelet Volume 11.3 fl (7.5-11.0); Monocyte (Absolute #) 0.89 (0.0-1.3); Monocytes % 8.8 % (0.0-12.0); Neutrophil % 69.5 % (36.0-66.0); Platelet Count 264 K/mm3 (150-450); Red Blood Count 5.08 M/mm3 (4.1-5.4); Red Cell Distribution Width 15.9 % (11.5-14.0); White Blood Count 10.1 K/mm3 (4.0-10.5)
--- NOTE | 2020-10-30 13:11 | XRAY ---
Indication: Hypertension. Cardiomegaly. Comparison: August 24, 2017. Portable chest again demonstrates normal heart and lungs. Bony thorax intact again with mild degenerative changes. No new/acute findings.
[2020-10-30 13:14] LABS: ALBUMIN 4.5 g/dL (3.5-5.0); ALKALINE PHOSPHATASE 68 U/L (38-126); ANION GAP 14.3 MEQ/L (5-15); BLOOD UREA NITROGEN 11 mg/dL (7-17); CHLORIDE 107 mmol/L (98-107); Calcium 9.8 mg/dL (8.4-10.2); Carbon Dioxide 23 mmol/L (22-30); Creatinine 1 0.82 mg/dL (0.52-1.04); EST GLOMERULAR FILTRATION RATE > 60.0 ML/MIN; Glucose 132 mg/dL (74-106); MAGNESIUM 1.9 mg/dL (1.6-2.3); Potassium 3.8 mmol/L (3.5-5.1); SGOT/AST 29 U/L (14-36); SGPT/ALT 26 U/L (0-35); SODIUM 140 mmol/L (137-145); Total Protein 7.7 g/dL (6.3-8.2)
[2020-10-30 14:18] LABS: Appearance SLIGHTLY CLOUDY (CLEAR); Bacteria RARE /HPF (NEGATIVE); Bilirubin NEGATIVE (NEGATIVE); Blood SMALL Ery/ul (0-5); Glucose NEGATIVE (NEGATIVE); Ketones NEGATIVE (NEGATIVE); Leukocyte Esterase NEGATIVE (NEGATIVE); Mucus MANY /HPF (NEGATIVE); Nitrite NEGATIVE (NEGATIVE); Protein,Urine Dip 100 (Negative); RBC 0-2 /HPF (0-2); Specific Gravity 1.026 (1.005-1.025); Urobilinogen 2 mg/dL (0-1); WBC 0-2 /HPF (0-5)
[2020-10-30] MEDS ORDERED: Compazine 10 MG/2 ML ONE (14:19)
[2020-10-30] MEDS ORDERED: Hydromorphone 1 mg/ml Injection ONE ×2 (14:19→15:00)
[2020-10-30] MEDS: Hydromorphone 1 mg/ml Injection IV ONE ×2 (14:23→15:01)
[2020-10-30] MEDS: Compazine 10 MG/2 ML IV ONE (14:25)
--- NOTE | 2020-10-30 14:27 | ERPHSYRPT ---
- History of Present Illness Time Seen by Provider: 10/30/20 12:44 Source: patient Exam Limitations: no limitations Patient Subjective Stated Complaint: Pt states that her blood pressure has been running flex for about 4-5 days, she also is having a migraine which she has frequently Triage Nursing Assessment: Pt brought to the ER by her , hypertensive, rates head pain as 6/10, N&V, last oral intake last night, pulses normal, Dr. Allen has ordered her a blood pressure medicine that is still at the [facility] pharmacy, doesn't appear to be in any distress Physician History: Patient is a 55-year-old female with a h/o MS presents to our ED for evaluation of elevated blood pressure and migraine. Symptoms started approximately 4 to 5 days ago. Patient has a history of migraines and today's headache is typical of her usual migraine. Patient did call her primary care doctor with concerns with her blood pressure. Prescription for blood pressure medication was called to the patient's pharmacy. However patient has not picked up her medication. Patient denies other symptoms. No chest pain or shortness of breath. No nausea vomiting or diaphoresis. Symptoms are mild to moderate in intensity. No specific worsening improving factors. Patient concerned that the pain/headache may be due to elevated blood pressure. Patient voices no complaints Timing/Duration: day(s) (5 to 6 days) Severity: moderate Modifying Factors: Improves With: nothing Associated Symptoms: denies symptoms Allergies/Adverse Reactions: codeine Allergy (Intermediate, Verified 10/30/20 12:51) Itching latex Allergy (Mild, Verified 10/30/20 12:51) Hives zolmitriptan [From Zomig] Allergy (Mild, Verified 10/30/20 12:51) HEART RACE ketorolac tromethamine [From Toradol] Allergy (Verified 10/30/20 12:51) Hives ondansetron HCl [From Zofran] Allergy (Verified 10/30/20 12:51) Swelling sumatriptan [From Imitrex] Allergy (Verified 10/30/20 12:51) HEART RACE POUNDING HEART Home Medications: Gabapentin 800 mg PO QID 01/21/17 [History] Cimetidine 400 mg PO BID 04/17/20 [History] Zolpidem Tartrate [Ambien] 10 mg PO HS 04/17/20 [History] Hx Tetanus, Diphtheria Vaccination/Date Given: Yes Hx Influenza Vaccination/Date Given: No Hx Pneumococcal Vaccination/Date Given: Yes Travel Risk - International Travel Have you traveled outside of the country in past 3 weeks: No - Coronavirus Screening Are you exhibiting any of the following symptoms?: No - Vaccine Status Have you recieved a Covid-19 vaccination: No - Review of Systems Constitutional: No Symptoms, No Fever, No Chills Eyes: No Symptoms Ears, Nose, & Throat: No Symptoms Respiratory: No Symptoms, No Cough, No Dyspnea Cardiac: No Symptoms, No Chest Pain, No Edema, No Syncope Abdominal/Gastrointestinal: No Symptoms, No Abdominal Pain, No Nausea, No Vomiting, No Diarrhea Genitourinary Symptoms: No Symptoms, No Dysuria Musculoskeletal: No Symptoms, No Back Pain, No Neck Pain Skin: No Symptoms, No Rash Neurological: No Symptoms, No Dizziness, No Focal Weakness, No Sensory Changes Psychological: No Symptoms Endocrine: No Symptoms Hematologic/Lymphatic: No Symptoms Immunological/Allergic: No Symptoms All Other Systems: Reviewed and Negative - Past Medical History Pertinent Past Medical History: Yes Neurological History: Migraines, Peripheral Neuropathy ENT History: No Pertinent History Cardiac History: No Pertinent History Respiratory History: Pneumonia Endocrine Medical History: No Pertinent History Musculoskeletal History: No Pertinent History GI Medical History: No Pertinent History History: No Pertinent History Psycho-Social History: No Pertinent History Female Reproductive Disorders: No Pertinent History Other Medical History: Multiple Sclerosis 2006 - Past Surgical History Past Surgical History: Yes Neuro Surgical History: No Pertinent History Cardiac: No Pertinent History Respiratory: No Pertinent History Gastrointestinal: Cholecystectomy Genitourinary: No Pertinent History Musculoskeletal: Other Female Surgical History: No Pertinent History Other Surgical History: rotator cuff repair, right - Social History Smoking Status: Current every day smoker How long have you smoked: 30 YEARS Exposure to second hand smoke: Yes Drug Use: none Patient Lives Alone: No Significant Family History: cancer (M Breast Ca. Father lung ca) - Nursing Vital Signs Nursing Vital Signs: Initial Vital Signs Temperature 98.3 F 10/30/20 12:41 Pulse Rate 78 10/30/20 12:41 Blood Pressure 150/97 10/30/20 12:41 O2 Sat by Pulse Oximetry 96 10/30/20 12:41 Pain Scale Pain Intensity 7 - Physical Exam General Appearance: no apparent distress, alert Eye Exam: PERRL/EOMI, eyes nml inspection Ears, Nose, Throat Exam: normal ENT inspection, TMs normal, pharynx normal, moist mucous membranes Neck Exam: normal inspection, non-tender, supple, full range of motion Respiratory Exam: normal breath sounds, lungs clear, No respiratory distress Cardiovascular Exam: regular rate/rhythm, normal heart sounds, normal peripheral pulses Gastrointestinal/Abdomen Exam: soft, normal bowel sounds, No tenderness, No mass Back Exam: normal inspection, normal range of motion, No CVA tenderness, No vertebral tenderness Extremity Exam: normal inspection, normal range of motion, pelvis stable Neurologic Exam: alert, oriented x 3, cooperative, normal mood/affect, nml cerebellar function, sensation nml, No motor deficits Skin Exam: normal color, warm, dry, No rash Lymphatic Exam: No adenopathy SpO2 Interpretation: normal SpO2: 98 O2 Delivery: Room Air - Course Nursing assessment & vital signs reviewed: Yes EKG Interpreted by Me: RATE (67), Sinus Rhythm, NORMAL AXIS, NORMAL INTERVALS - Radiology Exams Chest X-ray Interpretation: Teleradiologist Report (Chest x-ray reveals normal heart lungs. Bony thorax intact again with mild degenerative changes. No new acute findings.) Ordered Tests: Active Orders 24 hr Category Date Time Status Access Nurse STAT Care 10/30/20 12:42 Active EKG-ER Only STAT Care 10/30/20 12:41 Active IV Insertion STAT Care 10/30/20 12:41 Active Pulse Oximetry (ED) STAT Care 10/30/20 12:41 Active CHEST 1 VIEW (PORTABLE) Stat Exams 10/30/20 12:42 Completed CBC W DIFF Stat Lab 10/30/20 13:00 Completed CMP Stat Lab 10/30/20 13:00 Completed MAGNESIUM Stat Lab 10/30/20 13:00 Completed TROPONIN Q3H Lab 10/30/20 12:55 Received TROPONIN Q3H Lab 10/30/20 17:15 Ordered TROPONIN Q3H Lab 10/30/20 20:15 Ordered TROPONIN Q3H Lab 10/30/20 23:15 Ordered TROPONIN Q3H Lab 10/31/20 02:15 Ordered UA W/RFX UR CULTURE Stat Lab 10/30/20 12:42 Ordered Medication Summary Discontinued Medications Generic Name Dose Route Start Last Admin Trade Name Freq PRN Reason Stop Dose Admin Hydromorphone HCl 0.5 mg 10/30/20 13:40 10/30/20 14:23 Hydromorphone 1 Mg/Ml Injection IV 10/30/20 13:41 0.5 mg STAT ONE Administration Hydromorphone HCl Confirm 10/30/20 14:19 Hydromorphone 1 Mg/Ml Injection Administered 10/30/20 14:20 Dose 1 mg .ROUTE .[facility] ONE Prochlorperazine Edisylate 10 mg 10/30/20 13:39 10/30/20 14:25 Compazine 10 Mg/2 Ml IV 10/30/20 13:40 10 mg STAT ONE Administration Prochlorperazine Edisylate Confirm 10/30/20 14:19 Compazine 10 Mg/2 Ml Administered 10/30/20 14:20 Dose 10 mg .ROUTE .[facility] Lab/Rad Data: Laboratory Result Diagrams 10/30/20 13:00 10/30/20 13:00 Laboratory Results 10/30/20 10/30/20 Range/Units 13:00 13:00 WBC 10.1 (4.0-10.5) K/mm3 RBC 5.08 (4.1-5.4) M/mm3 Hgb 14.2 (12.0-16.0) gm/dl Hct 44.8 (35-47) % MCV 88.2 (78-100) fl MCH 28.0 (26-32) pg MCHC 31.7 L (32-36) g/dl RDW 15.9 H (11.5-14.0) % Plt Count 264 (150-450) K/mm3 MPV 11.3 H (7.5-11.0) fl Gran % 69.5 H (36.0-66.0) % Eos # (Auto) 0.15 (0-0.5) Absolute Lymphs (auto) 2.01 (1.0-4.6) Absolute Monos (auto) 0.89 (0.0-1.3) Lymphocytes % 19.9 L (24.0-44.0) % Monocytes % 8.8 (0.0-12.0) % Eosinophils % 1.5 (0.00-5.0) % Basophils % 0.3 (0.0-0.4) % Absolute Granulocytes 7.01 H (1.4-6.9) Basophils # 0.03 (0-0.4) Sodium 140 (137-145) mmol/L Potassium 3.8 (3.5-5.1) mmol/L Chloride 107 (98-107) mmol/L Carbon Dioxide 23 (22-30) mmol/L Anion Gap 14.3 (5-15) MEQ/L BUN 11 (7-17) mg/dL Creatinine 0.82 (0.52-1.04) mg/dL Estimated GFR > 60.0 ML/MIN Glucose 132 H (74-106) mg/dL Calcium 9.8 (8.4-10.2) mg/dL Magnesium 1.9 (1.6-2.3) mg/dL Total Bilirubin 0.30 (0.2-1.3) mg/dL AST 29 (14-36) U/L ALT 26 (0-35) U/L Alkaline Phosphatase 68 (38-126) U/L Serum Total Protein 7.7 (6.3-8.2) g/dL Albumin 4.5 (3.5-5.0) g/dL - Progress Progress: improved Progress Note: Patient reassessed. Headache improved. 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 Work-up in our ED is essentially normal. Neuro exam normal. No indication for other work-up in our ED. Will discharge home. Patient to follow-up with her primary care doctor within 48 hours for reevaluation. 10/30/20 14:42 Counseled pt/family regarding: lab results, diagnosis, need for follow-up - Departure Departure Disposition: Home Clinical Impression: Arthritis, Migraine, Hypertension Condition: Stable Critical Care Time: No Referrals: MATT ALLEN [Primary Care Provider] - Additional Instructions: Discharge/Care Plan CHHAYAETHEL RICE was seen on 10/30/20 in the Emergency Room. The patient was counseled regarding Diagnosis,Lab results, Imaging studies, need for follow up and when to return to the Emergency Room. Prescriptions given: Discharge Note I have spoken with the patient and/or caregivers. I have explained the patient's condition, diagnosis and treatment plan based on the information available to me at this time. I have answered the patient's and/or caregiver's questions and addressed any concerns. The patient and/or caregivers have as good understanding of the patient's diagnosis, condition and treatment plan as can be expected at this point. The vital signs have been stable. The patient's condition is stable and appropriate for discharge from the emergency department. The patient will pursue further outpatient evaluation with the primary care ph ysician or other designated or consulting physician as outlined in the discharge instructions. The patient and/or caregivers are agreeable to this plan of care and follow-up instructions have been explained in detail. The patient and/or caregivers have received these instruction. The patient/and or caregivers are aware that any significant change in condition or worsening of symptoms should prompt an immediate return to this or the closest emergency department or call 911.
[2020-10-30 15:09] VITALS: BP 130/91; PULSE 75; O2SAT 95
== END 2020-10-30 15:20 | disposition home or self-care (01) ==
LOC: ED 12:37
DX: M19.90 Unspecified osteoarthritis, unspecified site (principal); G43.909 Migraine, unspecified, not intractable, without status migrainosus; I10 Essential (primary) hypertension
CPT/HCPCS: 36000; 36415; 71045; 80053; 81001; 83735; 84484; 85025; 93005; 93041; 94760; 96374; 96375; 96376; 99284; J1170

== ENCOUNTER 2020-11-10 07:41 | Emergency (ER) | payer OTHER, MEDICARE ==
[2020-11-10] MEDS ORDERED: Hydromorphone 1 mg/ml Injection IM ONE ×2 (08:02→09:40)
[2020-11-10] MEDS ORDERED: Hydromorphone 1 mg/ml Injection ONE ×2 (08:06→09:40)
[2020-11-10] MEDS ORDERED: PHENERGAN 25 MG PO ONE (08:34)
[2020-11-10] MEDS ORDERED: PHENERGAN 25 MG ONE (08:37)
--- NOTE | 2020-11-10 09:26 | ERPHSYRPT ---
- History of Present Illness Time Seen by Provider: 11/10/20 07:55 Source: patient Exam Limitations: no limitations Patient Subjective Stated Complaint: pt here for pain to right shoulder for a week now, she was seen and states there is fluid on shoulder and was given pain meds and steriods, she staes pain is not easing, no injury Triage Nursing Assessment: pt alert, holding rigrh arm, resp easy, face mask in place, no bruising noted Physician History: Patient is a 55-year-old female who presents to the ER with severe pain in the right shoulder. At times the pain starts in the neck and goes completely down the arm other times it is primarily in the shoulder she saw her primary care physician and had an ultrasound done which showed an effusion in the shoulder. She has had a previous rotator cuff repair on the shoulder. She has a long history of multiple painful conditions and has been treated with opioids in the past to the point of dependence. According to her chart. She does have most of her pain from multiple sclerosis. Occurred: last week Method of Injury: unknown Quality: constant, burning, sharpness, stabbing, throbbing Extremities Pain Location: shoulder: right Modifying Factors: Improves With: movement Allergies/Adverse Reactions: codeine Allergy (Intermediate, Verified 11/10/20 07:52) Itching latex Allergy (Mild, Verified 11/10/20 07:52) Hives zolmitriptan [From Zomig] Allergy (Mild, Verified 11/10/20 07:52) HEART RACE ketorolac tromethamine [From Toradol] Allergy (Verified 11/10/20 07:52) Hives ondansetron HCl [From Zofran] Allergy (Verified 11/10/20 07:52) Swelling sumatriptan [From Imitrex] Allergy (Verified 11/10/20 07:52) HEART RACE POUNDING HEART Home Medications: Gabapentin 800 mg PO QID 01/21/17 [History] Cimetidine 400 mg PO BID 04/17/20 [History] Zolpidem Tartrate [Ambien] 10 mg PO HS 04/17/20 [History] Amlodipine Besylate 5 mg [Norvasc 5 mg] 1 ea DAILY 11/10/20 [History] Butorphanol Tartrate [Stadol] 1 spray BID 11/10/20 [History] Cyclobenzaprine HCl [Flexeril] 1 ea DAILY 11/10/20 [History] Hydrocodone/Acetaminophen [Hydrocodone-Acetamin 5-325 mg] 1 ea DAILY 11/10/20 [History] Methocarbamol 500 mg [Robaxin 500 MG] 1 ea DAILY 11/10/20 [History] Prednisone 1 ea DAILY 11/10/20 [History] Venlafaxine HCl [Effexor Xr] 1 ea BID 11/10/20 [History] Hx Tetanus, Diphtheria Vaccination/Date Given: Yes Hx Influenza Vaccination/Date Given: No Hx Pneumococcal Vaccination/Date Given: No Immunizations Up to Date: Yes Travel Risk - International Travel Have you traveled outside of the country in past 3 weeks: No - Coronavirus Screening Are you exhibiting any of the following symptoms?: No - Vaccine Status Have you recieved a Covid-19 vaccination: No - Review of Systems Constitutional: No Fever, No Chills Eyes: No Symptoms Ears, Nose, & Throat: No Symptoms Respiratory: No Cough, No Dyspnea Cardiac: No Chest Pain, No Edema, No Syncope Abdominal/Gastrointestinal: No Abdominal Pain, No Nausea, No Vomiting, No Diarrhea Genitourinary Symptoms: No Dysuria Musculoskeletal: Joint Pain, Joint Swelling, No Back Pain, No Neck Pain Skin: No Rash Neurological: No Dizziness, No Focal Weakness, No Sensory Changes Psychological: No Symptoms Endocrine: No Symptoms All Other Systems: Reviewed and Negative - Past Medical History Pertinent Past Medical History: Yes Neurological History: Migraines, Peripheral Neuropathy ENT History: No Pertinent History Cardiac History: No Pertinent History Respiratory History: Pneumonia Endocrine Medical History: No Pertinent History Musculoskeletal History: No Pertinent History GI Medical History: No Pertinent History History: No Pertinent History Psycho-Social History: No Pertinent History Female Reproductive Disorders: No Pertinent History Other Medical History: Multiple Sclerosis 2006 - Past Surgical History Past Surgical History: Yes Neuro Surgical History: No Pertinent History Cardiac: No Pertinent History Respiratory: No Pertinent History Gastrointestinal: Cholecystectomy Genitourinary: No Pertinent History Musculoskeletal: Other Female Surgical History: No Pertinent History Other Surgical History: rotator cuff repair, right - Social History Smoking Status: Current every day smoker How long have you smoked: 30 YEARS Exposure to second hand smoke: Yes Drug Use: none Patient Lives Alone: No Significant Family History: cancer (M Breast Ca. Father lung ca) - Female History Hx Last Menstrual Period: post - Nursing Vital Signs Nursing Vital Signs: Initial Vital Signs Temperature 98.1 F 11/10/20 07:46 Respiratory Rate 18 11/10/20 07:46 Blood Pressure 132/90 11/10/20 07:46 O2 Sat by Pulse Oximetry 97 11/10/20 07:46 Pain Scale Pain Intensity 8 - Physical Exam General Appearance: mild distress, alert Eyes, Ears, Nose, Throat Exam: moist mucous membranes Neck Exam: non-tender, supple Cardiovascular/Respiratory Exam: chest non-tender, normal breath sounds, regular rate/rhythm, no respiratory distress Abdominal Exam: non-tender, No guarding Back Exam: normal inspection, No vertebral tenderness Shoulder Exam: bone tenderness, limited ROM, soft tissue tenderness, swelling Elbow/Forearm Exam: normal inspection, non-tender Wrist Exam: normal inspection, non-tender Hand Exam: normal inspection, non-tender Neuro/Tendon Exam: normal sensation, normal motor functions Mental Status Exam: alert, oriented x 3, cooperative Skin Exam: normal color, warm, dry SpO2 Interpretation: normal SpO2: 97 O2 Delivery: Room Air Procedures - Splinting Time of Procedure: 09:23 Location of Splint: Right, Upper Arm Type of Splint: Other (Sling and swath) Splint Applied By: ED Nurse Pre-Proc Neuro Vasc Exam: normal Post-Proc Neuro Vasc Exam: neurovascular intact - Course Nursing assessment & vital signs reviewed: Yes - CT Exams Other CT Interpretation: Tele-radiologist Report (CT scan of the cervical spine and the right shoulder shows some nerve impingement at C3-6 with foraminal stenosis. In the shoulder she has fusion a probable recurrent rotator cuff tear.) Ordered Tests: Active Orders 24 hr Category Date Time Status CERVICAL SPINE WO CONTRAST [CT] Stat Exams 11/10/20 08:20 Taken UPPER EXTREMITY W/O CONTRAST [CT] Stat Exams 11/10/20 08:01 Taken Medication Summary Discontinued Medications Generic Name Dose Route Start Last Admin Trade Name Freq PRN Reason Stop Dose Admin Hydromorphone HCl 1 mg 11/10/20 08:02 11/10/20 08:08 Hydromorphone 1 Mg/Ml Injection IM 11/10/20 08:03 1 mg STAT ONE Administration Hydromorphone HCl Confirm 11/10/20 08:06 Hydromorphone 1 Mg/Ml Injection Administered 11/10/20 08:07 Dose 1 mg .ROUTE .[facility] ONE Promethazine HCl 25 mg 11/10/20 08:34 11/10/20 08:38 Phenergan 25 Mg PO 11/10/20 08:35 25 mg STAT ONE Administration Promethazine HCl Confirm 11/10/20 08:37 Phenergan 25 Mg Administered 11/10/20 08:38 Dose 25 mg .ROUTE .[facility] ONE - Progress Progress: unchanged, pain not gone completely Progress Note: 11/10/20 09:26 Patient was informed of the findings of her CT scan and encouraged to see her primary care physician for probable orthopedic referral and an MRI. - Departure Departure Disposition: In-patient Admission Clinical Impression: Rotator cuff tear, Cervical radiculopathy Condition: Stable Critical Care Time: No Referrals: MATT JAVED [Primary Care Provider] - Instructions: Shoulder Tendinopathy (DC) Prescriptions: Oxycodone HCl/Acetaminophen [Percocet 5-325 mg Tablet] 1 each PO Q6H PRN 3 Days #12 tablet MDD 4 PRN Reason: Mild To Moderate Pain
[2020-11-10 09:30] VITALS: BP 140/82; PULSE 100
[2020-11-10 09:31] VITALS: O2SAT 97
--- NOTE | 2020-11-10 18:23 | XRAY ---
Indication: Right shoulder pain 2 weeks. Multiple contiguous axial images obtained through the cervical spine. Sagittal and coronal reformatted images obtained. Comparison: None Axial images negative for acute fracture, suspicious bony lesions, or spinal canal stenosis. There is minimal multilevel endplate spurring and mild/moderate multilevel bilateral degenerative facet hypertrophy. Sagittal and coronal reformatted images demonstrates normal alignment with vertebral body heights/disc spaces maintained. No acute compression fracture, subluxation, or jumped facet. Normal appearing craniocervical junction. Visualized noncontrasted soft tissues including lung apices and base of the brain unremarkable. Impression: Multilevel degenerative changes. Comment: Preliminary interpretation was made by [facility]. No critical discrepancy
--- NOTE | 2020-11-10 18:25 | XRAY ---
Indication: Right shoulder pain 2 weeks. Multiple contiguous axial images obtained through the right shoulder. Sagittal and coronal reformatted images obtained. Comparison: None Previous rotator cuff surgery. Subacromial/subdeltoid fluid.. No acute fracture, dislocation, or suspicious bone lesions. Mild acromioclavicular degenerative arthropathy with tiny inferior spurring. Visualized noncontrasted soft tissues are unremarkable. Tiny right upper lobe calcified granuloma. Impression: Previous rotator cuff surgery. Subacromial/subdeltoid fluid concerning for recurrent rotator cuff tear. Mild AC degenerative arthropathy. Comment: Preliminary interpretation was made by [facility]. No critical discrepancy
== END 2020-11-10 10:08 | disposition home or self-care (01) ==
LOC: ED 07:41
DX: M75.101 Unspecified rotator cuff tear or rupture of right shoulder, not specified as traumatic (principal); M54.12 Radiculopathy, cervical region; M25.511 Pain in right shoulder; G35 Multiple sclerosis; Z79.899 Other long term (current) drug therapy
CPT/HCPCS: 72125; 73200; 96372; 99284; J1170; L3650; A9270-GY

== ENCOUNTER 2020-11-11 14:23 | Observation (INO) | payer OTHER, MEDICARE ==
[2020-11-11] MEDS ORDERED: Lactated Ringers 1,000 ML IV SCH (16:00)
[2020-11-11 19:46] LABS: Hematocrit 41.6 % (35-47); Mean Cell Volume 87.2 fl (78-100); Mean Corpuscular Hemoglobin 27.3 pg (26-32); Mean Corpuscular Hgb Concent. 31.3 g/dl (32-36); Platelet Count 441 K/mm3 (150-450); Red Blood Count 4.77 M/mm3 (4.1-5.4); Red Cell Distribution Width 16.2 % (11.5-14.0); White Blood Count 17.7 K/mm3 (4.0-10.5)
[2020-11-11 19:50] LABS: ALBUMIN 4.1 g/dL (3.5-5.0); ALKALINE PHOSPHATASE 81 U/L (38-126); ANION GAP 11.2 MEQ/L (5-15); BLOOD UREA NITROGEN 13 mg/dL (7-17); CHLORIDE 100 mmol/L (98-107); Calcium 9.5 mg/dL (8.4-10.2); Carbon Dioxide 29 mmol/L (22-30); Creatinine 1 0.68 mg/dL (0.52-1.04); EST GLOMERULAR FILTRATION RATE > 60.0 ML/MIN; Glucose 88 mg/dL (74-106); Potassium 3.9 mmol/L (3.5-5.1); SGOT/AST 33 U/L (14-36); SGPT/ALT 43 U/L (0-35); SODIUM 137 mmol/L (137-145); Total Protein 7.5 g/dL (6.3-8.2)
[2020-11-11] MEDS ORDERED: PHENERGAN 25 MG ONE (20:27)
[2020-11-11] MEDS: Hydromorphone 1 mg/ml Injection IV PRN (20:28)
[2020-11-11] MEDS: PHENERGAN 25 MG PO SCH (20:28)
[2020-11-11] MEDS: Lactated Ringers 1,000 ML IV SCH (22:10)
[2020-11-11] MEDS: NORVASC 5 MG PO SCH (22:10)
[2020-11-11] MEDS: Neurontin 400 MG PO SCH (22:10)
[2020-11-11] MEDS: Ambien 10 MG PO SCH (22:11)
[2020-11-11] MEDS: Effexor XR 75 MG PO SCH (22:11)
[2020-11-11 23:47] LABS: Lymphocytes 18 % (24-44); Monocyte 3 % (0.0-12.0); Neutrophils 79 % (36.0-66.0); Platelet Estimate NORMAL (NORMAL); Total Cells Counted 100
[2020-11-12] MEDS: Hydromorphone 1 mg/ml Injection IV PRN ×6 (00:16→21:07)
[2020-11-12 04:41] LABS: Appearance SLIGHTLY CLOUDY (CLEAR); Bilirubin NEGATIVE (NEGATIVE); Blood SMALL Ery/ul (0-5); Epithelial Cells RARE /HPF (FEW); Glucose NEGATIVE (NEGATIVE); Ketones NEGATIVE (NEGATIVE); Leukocyte Esterase NEGATIVE (NEGATIVE); Mucus SLIGHT /HPF (NEGATIVE); Nitrite NEGATIVE (NEGATIVE); Protein,Urine Dip 30 (Negative); RBC 26-50 /HPF (0-2); Specific Gravity 1.026 (1.005-1.025); Urobilinogen 2 mg/dL (0-1)
[2020-11-12] MEDS ORDERED: PHENERGAN 25 MG ONE (04:42)
[2020-11-12] MEDS: PHENERGAN 25 MG PO SCH (04:43)
[2020-11-12] MEDS ORDERED: PHENERGAN 25 MG PO PRN (04:45)
[2020-11-12] MEDS: Lactated Ringers 1,000 ML IV SCH ×2 (04:46→17:59)
[2020-11-12 05:26] LABS: Bacteria NONE SEEN /HPF (NEGATIVE)
[2020-11-12] MEDS ORDERED: PERCOCET TABLET 5/325MG PO PRN (07:00)
--- NOTE | 2020-11-12 08:31 | PCM.NOTE ---
Date and Time: 11/12/20827 Subjective Assessment: Slept little last night. Dilauded works for about 3 hours. Sravanthi some po - crackers and tea. Having R shoulder pain. - Review of Systems Constitutional: No Fever Abdominal/Gastrointestinal: No Vomiting Objective Exam General Appearance: mild distress, alert Neurologic Exam: oriented x 3, cooperative Skin Exam: normal color, warm, dry, No rash Eye Exam: eyes nml inspection Ears, Nose, Throat Exam: moist mucous membranes Neck Exam: normal inspection Respiratory Exam: normal breath sounds, lungs clear, No crackles/rales, No rhonchi, No wheezing Cardiovascular Exam: regular rate/rhythm, normal heart sounds, No murmur Gastrointestinal/Abdomen Exam: soft, normal bowel sounds, No tenderness, No distention, No mass, No guarding, No rebound Extremity Exam: normal inspection, No pedal edema, No swelling OBJECTIVE DATA Vital Signs: Vital Signs - 24 hr Temp Pulse Resp BP Pulse Ox 11/12/20 07:51 98.4 F 89 20 128/60 94 L 11/12/20 04:00 98.0 F 95 H 18 145/69 94 L 11/12/20 00:00 97.6 F 89 16 138/62 96 11/11/20 20:35 93 L 11/11/20 19:57 97.9 F 86 20 116/70 93 L 11/11/20 19:46 97.9 F 86 20 116/70 93 L 11/11/20 19:45 97.9 F 86 20 116/70 93 L Pain Assessment - Last Documented Pain Intensity 7 Pain Scale Used 0-10 Pain Scale Intake and Output: Intake & Output 11/09/20 11/10/20 11/11/20 11/12/20 11:59 11:59 11:59 11:59 Intake Total 1360 Output Total 350 Balance 1010 Weight 88.1 kg Lab Results: Lab Results-Last 24 Hours 11/11/20 11/11/20 11/12/20 Range/Units 19:30 19:30 04:30 WBC 17.7 H (4.0-10.5) K/mm3 RBC 4.77 (4.1-5.4) M/mm3 Hgb 13.0 (12.0-16.0) gm/dl Hct 41.6 (35-47) % MCV 87.2 (78-100) fl MCH 27.3 (26-32) pg MCHC 31.3 L (32-36) g/dl RDW 16.2 H (11.5-14.0) % Plt Count 441 (150-450) K/mm3 Segmented Neutrophils 79 H (36.0-66.0) % Lymphocytes (Manual) 18 L (24-44) % Monocytes (Manual) 3 (0.0-12.0) % Platelet Estimate NORMAL (NORMAL) RBC Morphology NORMAL Sodium 137 (137-145) mmol/L Potassium 3.9 (3.5-5.1) mmol/L Chloride 100 (98-107) mmol/L Carbon Dioxide 29 (22-30) mmol/L Anion Gap 11.2 (5-15) MEQ/L BUN 13 (7-17) mg/dL Creatinine 0.68 (0.52-1.04) mg/dL Estimated GFR > 60.0 ML/MIN Glucose 88 (74-106) mg/dL Calcium 9.5 (8.4-10.2) mg/dL Total Bilirubin 0.30 (0.2-1.3) mg/dL AST 33 (14-36) U/L ALT 43 H (0-35) U/L Alkaline Phosphatase 81 (38-126) U/L Serum Total Protein 7.5 (6.3-8.2) g/dL Albumin 4.1 (3.5-5.0) g/dL Urine Color YELLOW (YELLOW) Urine Appearance SLIGHTLY CLOUDY (CLEAR) Urine pH 6.0 (5-6) Ur Specific Viola 1.026 (1.005-1.025) Urine Protein 30 (Negative) Urine Ketones NEGATIVE (NEGATIVE) Urine Blood SMALL (0-5) Joey/ul Urine Nitrite NEGATIVE (NEGATIVE) Urine Bilirubin NEGATIVE (NEGATIVE) Urine Urobilinogen 2 (0-1) mg/dL Ur Leukocyte Esterase NEGATIVE (NEGATIVE) Urine WBC (Auto) 3-5 (0-5) /HPF Urine RBC (Auto) 26-50 (0-2) /HPF U Epithel Cells (Auto) RARE (FEW) /HPF Urine Bacteria (Auto) NONE SEEN (NEGATIVE) /HPF Urine Mucus (Auto) SLIGHT (NEGATIVE) /HPF Urine Culture Reflexed YES (NO) Urine Glucose NEGATIVE (NEGATIVE) mg/dL Assessment/Plan (1) Rotator cuff tear Current Visit: No Status: Acute Qualifiers: Rotator cuff tear extent: unspecified tear extent Rotator cuff tear trauma status: nontraumatic Laterality: right Qualified Code(s): M75.101 - Unspecified rotator cuff tear or rupture of right shoulder, not specified as traumatic Assessment & Plan: Much worse after some activity at home when was being tx with steroids. Ortho to consult today, thank you! On dilaudid here for pain control. Code(s): M75.100 - UNSP ROTATR-CUFF TEAR/RUPTR OF UNSP SHOULDER, NOT TRAUMA (2) Arthritis Current Visit: No Status: Chronic Code(s): M19.90 - UNSPECIFIED OSTEOARTHRITIS, UNSPECIFIED SITE (3) Hypertension Current Visit: No Status: Chronic Qualifiers: Hypertension type: essential hypertension Qualified Code(s): I10 - Essential (primary) hypertension Code(s): I10 - ESSENTIAL (PRIMARY) HYPERTENSION (4) Multiple sclerosis Current Visit: No Status: Chronic Assessment & Plan: May be exacerbating her pain response? Code(s): G35 - MULTIPLE SCLEROSIS (5) Hx of rotator cuff surgery Current Visit: No Status: Resolved Assessment & Plan: NEVILLE Silva Code(s): Z98.890 - OTHER SPECIFIED POSTPROCEDURAL STATES
[2020-11-12] MEDS: Neurontin 400 MG PO SCH ×4 (08:57→21:07)
[2020-11-12] MEDS: Robaxin 500 MG PO SCH (08:57)
[2020-11-12] MEDS: Pepcid 20 MG PO SCH ×2 (08:57→21:06)
[2020-11-12] MEDS: PHENERGAN 25 MG PO PRN ×2 (09:04→16:13)
[2020-11-12] MEDS ORDERED: PATIENT OWN MEDICATION NS SCH (10:00)
[2020-11-12] MEDS ORDERED: STADOL 2 MG IJ SCH (10:00)
[2020-11-12] MEDS ORDERED: CIMETIDINE 400 MG PO SCH (10:00)
[2020-11-12] MEDS: NORVASC 5 MG PO SCH (21:06)
[2020-11-12] MEDS: Ambien 10 MG PO SCH (21:07)
[2020-11-12] MEDS: Effexor XR 75 MG PO SCH (21:07)
[2020-11-13] MEDS: Hydromorphone 1 mg/ml Injection IV PRN ×4 (02:44→12:32)
[2020-11-13] MEDS: Lactated Ringers 1,000 ML IV SCH (06:00)
[2020-11-13] MEDS: Neurontin 400 MG PO SCH ×2 (09:31→12:30)
[2020-11-13] MEDS: Robaxin 500 MG PO SCH (09:31)
[2020-11-13] MEDS: Pepcid 20 MG PO SCH (09:31)
[2020-11-13 12:04] VITALS: BP 123/62; PULSE 81; O2SAT 96
--- NOTE | 2020-11-13 14:00 | PCM.DS ---
Discharge Summary Date of Admission: 11/11/20 18:03 Admitting Physician: MATT JAVED Consults: Consults on Case 11/11/20 18:15 Consult Ortho ROUTINE Primary Care Provider: MATT JAVED Allergies Allergies codeine Allergy (Intermediate, Verified 11/11/20 18:26) Itching latex Allergy (Mild, Verified 11/11/20 18:26) Hives zolmitriptan [From Zomig] Allergy (Mild, Verified 11/11/20 18:26) HEART RACE ketorolac tromethamine [From Toradol] Allergy (Verified 11/11/20 18:26) Hives ondansetron HCl [From Zofran] Allergy (Verified 11/11/20 18:26) Swelling sumatriptan [From Imitrex] Allergy (Verified 11/11/20 18:26) HEART RACE [facility] Summary - Vitals & Intake/Output Vital Signs: Vital Signs Temperature 98.5 F 11/13/20 12:00 Pulse Rate 81 11/13/20 12:00 Respiratory Rate 20 11/13/20 12:00 Blood Pressure 123/62 11/13/20 12:00 O2 Sat by Pulse Oximetry 96 11/13/20 12:00 Intake & Output: Intake & Output 11/11/20 11/12/20 11/13/20 11/14/20 11:59 11:59 11:59 11:59 Intake Total 1480 2155 Output Total 350 1850 Balance 1130 305 Weight 88.1 kg - Lab Result Diagrams: 11/11/20 19:30 11/11/20 19:30 Micro Results-Entire Visit: Microbiology 11/12/20 04:30 Urine Culture - Preliminary Urine, Void NO GROWTH TO DATE - Procedures and Test Procedures and Tests throughout Hospitalization: Therapy Orders & Screens 11/11/20 20:10 OT Screen per Nursing Assess ONCE Comment: Protocol Order Physician Instructions: Greater than 3 points order OT Admission Screening Reason For Exam: Triggered on Admission Diagnosis: Right shoulder pain Open Wound/Cellutlitis/Pressure Ulcers: No Acute Fx/ORIF/Change in wt bearing status: No Severe MUSCULOSKELETAL pain: Yes ADL Dysfunction: No Acute CVA w/Hemiparesis/Hemiplegia: No Decreased Functional Mobility/Strength: Yes Sprain/Strain: No Acute Post-op Mobility Dysfunction: No Total Points: 6 PT Screen per Nursing Assess ONCE Comment: Protocol Order Physician Instructions: Greater than 3 points order PT Admission Screenin Reason For Exam: Triggered on Admission Diagnosis: Right shoulder pain Open Wound/Cellutlitis/Pressure Ulcers: No Acute Fx/ORIF/Change in wt bearing status: No Severe MUSCULOSKELETAL pain: Yes ADL Dysfunction: No Acute CVA w/Hemiparesis/Hemiplegia: No Decreased Functional Mobility/Strength: Yes Sprain/Strain: No Acute Post-op Mobility Dysfunction: No Total Points: 6 Smoking Cessation Education ONCE Comment: Diagnosis: Right shoulder pain Smoking Status: Current every day smoker How long have you smoked: 20 years Have you smoked in the past 12 months: Yes Approximately how many cigarettes per day: 20 Do you dip or chew tobacco: No - Discharge Disposition: Home, Self-Care Condition: Stable Prescriptions: Continue Gabapentin 800 mg PO QID Cimetidine 400 mg PO BID Zolpidem Tartrate [Ambien] 10 mg PO HS Methocarbamol 500 mg [Robaxin 500 MG] 500 mg PO DAILY Butorphanol Tartrate [Stadol] 1 spray IH BID Amlodipine Besylate 5 mg [Norvasc 5 mg] 1 ea PO QHS Venlafaxine HCl [Effexor Xr] 150 mg PO QHS Oxycodone HCl/Acetaminophen [Percocet 5-325 mg Tablet] 1 each PO Q6H PRN 3 Days #12 tablet MDD 4 PRN Reason: Mild To Moderate Pain Instructions: Shoulder Pain (DC) Additional Instructions: Patient is supposed to be set up with PT per ortho. She is to keep her appt with Dr Garcia on January 01. Follow up with: MATT JAVED [Primary Care Provider] - 11/18/20 9:30 am Forms: Discharge Instructions
== END 2020-11-13 15:45 | disposition home or self-care (01) ==
LOC: MED SURG 18:03
PROVIDERS: ADMIT Family Medicine; ATTEND Family Medicine
DX: M25.511 Pain in right shoulder (principal); M19.90 Unspecified osteoarthritis, unspecified site; I10 Essential (primary) hypertension; G35 Multiple sclerosis; Z98.890 Other specified postprocedural states; Z79.899 Other long term (current) drug therapy
CPT/HCPCS: 20610; 36415; 80053; 81001; 85025; 87086; 94762; 99231; G0378; J1170; A9270-GY

== ENCOUNTER 2021-11-06 10:10 | Observation (INO) | payer OTHER, MEDICARE ==
[2021-11-06] MEDS ORDERED: solu-MEDROL 125 MG, Sterile H2O 10 ml 2 ML IV ONE ×2 (10:51)
[2021-11-06] MEDS ORDERED: Phenergan 25 MG INJ*** 12.5 MG in Sodium Chloride 0.9% 100 ML IV ONE (11:00)
[2021-11-06] MEDS ORDERED: Hydromorphone 1 mg/ml Injection IV ONE (11:00)
[2021-11-06] MEDS: DILAUDID 1 MG/1ML PCA IV PRN (11:04)
[2021-11-06] MEDS ORDERED: Sodium Chloride 0.9% 1000 ML 1,000 ML ONE (11:11)
[2021-11-06] MEDS: Sodium Chloride 0.9% 1000 ML 1,000 ML IV SCH (11:45)
[2021-11-06 12:45] LABS: INFLUENZA A NEGATIVE (NEGATIVE); INFLUENZA B NEGATIVE (NEGATIVE); RESPIRATORY SYNCTIAL VIRUS NEGATIVE (Negative); SARS-CoV-2 Xpert Express NEGATIVE (NEGATIVE)
[2021-11-06 13:13] LABS: Absolute Neutrophil Ct (ANC) 8.77 (1.4-6.9); Basophil (Absolute #) 0.03 (0-0.4); Eosinophil % 2.8 % (0.00-5.0); Eosinophil (Absolute #) 0.39 (0-0.5); Hematocrit 47.9 % (35-47); Hemoglobin 15.2 gm/dl (12.0-16.0); Lymphocyte (Absolute #) 3.62 (1.0-4.6); Lymphocytes % 26.1 % (24.0-44.0); Mean Cell Volume 87.4 fl (78-100); Mean Corpuscular Hemoglobin 27.7 pg (26-32); Mean Corpuscular Hgb Concent. 31.7 g/dl (32-36); Mean Platelet Volume 11.8 fl (7.5-11.0); Monocyte (Absolute #) 1.05 (0.0-1.3); Monocytes % 7.6 % (0.0-12.0); Neutrophil % 63.3 % (36.0-66.0); Platelet Count 314 K/mm3 (150-450); Red Blood Count 5.48 M/mm3 (4.1-5.4); Red Cell Distribution Width 15.8 % (11.5-14.0); White Blood Count 13.9 K/mm3 (4.0-10.5)
[2021-11-06 13:18] LABS: ALBUMIN 4.6 g/dL (3.5-5.0); ALKALINE PHOSPHATASE 87 U/L (38-126); ANION GAP 14.6 MEQ/L (5-15); BLOOD UREA NITROGEN 16 mg/dL (7-17); CHLORIDE 104 mmol/L (98-107); Calcium 9.4 mg/dL (8.4-10.2); Carbon Dioxide 26 mmol/L (22-30); Creatinine 1 0.81 mg/dL (0.52-1.04); EST GLOMERULAR FILTRATION RATE > 60.0 ML/MIN; Glucose 139 mg/dL (74-106); Potassium 3.7 mmol/L (3.5-5.1); SGOT/AST 42 U/L (14-36); SGPT/ALT 19 U/L (0-35); SODIUM 140 mmol/L (137-145); Total Protein 8.2 g/dL (6.3-8.2)
[2021-11-06] MEDS ORDERED: MEDICATION INTERVENTION MC SCH (14:30)
[2021-11-06] MEDS ORDERED: Ambien 10 MG PO PRN (14:49)
[2021-11-06 15:58] LABS: Epithelial Cells RARE /HPF (FEW); Mucus SLIGHT /HPF (NEGATIVE); RBC 0-2 /HPF (0-2); WBC 0-2 /HPF (0-5)
[2021-11-06 16:01] LABS: Appearance CLEAR (CLEAR); Bilirubin NEGATIVE (NEGATIVE); Glucose NEGATIVE (NEGATIVE); Ketones NEGATIVE (NEGATIVE); Nitrite NEGATIVE (NEGATIVE); Ph 5.5 (5-6); Protein,Urine Dip TRACE (Negative); RBC SMALL Ery/ul (0-5); Urobilinogen 0.2 mg/dL (0-1)
[2021-11-06 16:02] LABS: Dipstick done @ ? MAIN LAB; Urine Cultured Indicated? YES
[2021-11-06] MEDS ORDERED: NON-FORMULARY ITEM (Gabapentin [Gabapentin] 800 MG Tablet) PO SCH (17:00)
[2021-11-06] MEDS: solu-MEDROL 60 MG, Sterile H2O 10 ml 2 ML IV SCH ×2 (17:13)
--- NOTE | 2021-11-06 17:41 | PCM.HP ---
History of Present Illness - Chief Complaint Chief Complaint: MIGRAINE History of Present Illness: is a 56 year old female pt of mine with MS who was admitted directly with intractable migraine. She started feeling poorly 4d ago with headache and vomiting. She has a history of chronic migraines for which she is sometimes hospitalized. However, this visit she is also complaining that she feels overall weakness. She thinks she has been working too hard. - Review of Systems Constitutional: Fatigue, Weakness Respiratory: Cough Abdominal/Gastrointestinal: Vomiting Neurological: Headache, Parasthesia (temporary, just superior to the nose, which has resolved.) All Other Systems: Reviewed and Negative Medications & Allergies Home Medications: Home Medication List Gabapentin 800 mg PO QID 01/21/17 [History Confirmed 11/06/21] Zolpidem Tartrate [Ambien] 10 mg PO HS 04/17/20 [History Confirmed 11/06/21] Butorphanol Tartrate [Stadol] 1 spray IH BID 11/10/20 [History Confirmed 11/06/21] Methocarbamol 500 mg [Robaxin 500 MG] 500 mg PO DAILY 11/10/20 [History Confirmed 11/06/21] Venlafaxine HCl [Effexor Xr] 150 mg PO QHS 11/10/20 [History Confirmed 11/06/21] Promethazine HCl 25 mg [Phenergan 25 mg] 25 mg PO Q6H PRN 11/06/21 [History Confirmed 11/06/21] Allergies/Adverse Reactions: Allergies Allergy/AdvReac Type Severity Reaction Status Date / Time codeine Allergy Intermediate Itching Verified 11/11/20 18:26 latex Allergy Mild Hives Verified 11/11/20 18:26 zolmitriptan [From Zomig] Allergy Mild HEART RACE Verified 11/11/20 18:26 ketorolac tromethamine Allergy Hives Verified 11/11/20 18:26 [From Toradol] ondansetron HCl [From Zofran] Allergy Swelling Verified 11/11/20 18:26 sumatriptan [From Imitrex] Allergy HEART RACE Verified 11/11/20 18:26 - Past Medical History Past Medical History: Yes Neurological History: Migraines, Peripheral Neuropathy ENT History: No Pertinent History Cardiac History: No Pertinent History Respiratory History: Pneumonia Endocrine Medical History: No Pertinent History Musculoskelatal History: No Pertinent History GI Medical History: No Pertinent History History: No Pertinent History Pyscho-Social History: No Pertinent History Reproductive Disorders: No Pertinent History Comment: Multiple Sclerosis 2007, BONE SPURS IN NECK - Female History Are you now?: No - Past Surgical History Past Surgical History: Yes Neuro Surgical History: No Pertinent History Cardiac History: No Pertinent History Respiratory Surgery: No Pertinent History GI Surgical History: Cholecystectomy Genitourinary Surgical Hx: No Pertinent History Musculskeletal Surgical Hx: Other Female Surgical History: No Pertinent History Other Surgical History: Sees Dr Sanchez 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 Father lung ca) - Physical Exam Vital Signs: Vital Signs - 24 hr Temp Pulse Resp BP Pulse Ox 11/06/21 16:00 97.1 F 79 12 133/83 100 11/06/21 12:49 94 L 11/06/21 12:09 97.1 F 59 L 18 128/79 89 L 11/06/21 12:04 92 L General Appearance: no apparent distress, mild distress, alert Neurologic Exam: oriented x 3, cooperative Eye Exam: eyes nml inspection Ears, Nose, Throat Exam: moist mucous membranes Neck Exam: normal inspection, non-tender, No lymphadenopathy, No thyromegaly Respiratory Exam: normal breath sounds, lungs clear, No crackles/rales, No rhonchi, No wheezing Cardiovascular Exam: regular rate/rhythm, normal heart sounds, No murmur Gastrointestinal/Abdomen Exam: soft, normal bowel sounds, No tenderness, No distention, No mass, No guarding, No rebound Back Exam: normal inspection, No rash Extremity Exam: normal inspection, No pedal edema, No swelling Skin Exam: normal color, warm, dry, No rash Results - Labs Lab/Micro Results: Lab Results-Last 24 Hours 11/06/21 11/06/21 11/06/21 Range/Units 11:30 11:30 15:51 WBC 13.9 H (4.0-10.5) K/mm3 RBC 5.48 H (4.1-5.4) M/mm3 Hgb 15.2 (12.0-16.0) gm/dl Hct 47.9 H (35-47) % MCV 87.4 (78-100) fl MCH 27.7 (26-32) pg MCHC 31.7 L (32-36) g/dl RDW 15.8 H (11.5-14.0) % Plt Count 314 (150-450) K/mm3 MPV 11.8 H (7.5-11.0) fl Gran % 63.3 (36.0-66.0) % Eos # (Auto) 0.39 (0-0.5) Absolute Lymphs (auto) 3.62 (1.0-4.6) Absolute Monos (auto) 1.05 (0.0-1.3) Lymphocytes % 26.1 (24.0-44.0) % Monocytes % 7.6 (0.0-12.0) % Eosinophils % 2.8 (0.00-5.0) % Basophils % 0.2 (0.0-0.4) % Absolute Granulocytes 8.77 H (1.4-6.9) Basophils # 0.03 (0-0.4) Sodium 140 (137-145) mmol/L Potassium 3.7 (3.5-5.1) mmol/L Chloride 104 (98-107) mmol/L Carbon Dioxide 26 (22-30) mmol/L Anion Gap 14.6 (5-15) MEQ/L BUN 16 (7-17) mg/dL Creatinine 0.81 (0.52-1.04) mg/dL Estimated GFR > 60.0 ML/MIN Glucose 139 H (74-106) mg/dL Calcium 9.4 (8.4-10.2) mg/dL Total Bilirubin 0.40 (0.2-1.3) mg/dL AST 42 H (14-36) U/L ALT 19 (0-35) U/L Alkaline Phosphatase 87 (38-126) U/L Serum Total Protein 8.2 (6.3-8.2) g/dL Albumin 4.6 (3.5-5.0) g/dL Urinalys Dipstick Clnc MAIN LAB Urine Color YELLOW (YELLOW) Urine Appearance CLEAR (CLEAR) Urine pH 5.5 (5-6) Ur Specific [place] 1.010 (1.005-1.025) POC Urine Protein Conf TRACE (Negative) Urine Ketones NEGATIVE (NEGATIVE) Urine Nitrite NEGATIVE (NEGATIVE) Urine Bilirubin NEGATIVE (NEGATIVE) Urine Urobilinogen 0.2 (0-1) mg/dL Urine Leukocytes NEGATIVE (NEGATIVE) Urine WBC (Auto) 0-2 (0-5) /HPF Urine RBC (Auto) 0-2 (0-2) /HPF U Epithel Cells (Auto) RARE (FEW) /HPF Urine RBC SMALL (0-5) Joey/ul Urine Mucus (Auto) SLIGHT (NEGATIVE) /HPF Ur Culture Indicated? YES Urine Glucose NEGATIVE (NEGATIVE) mg/dL Influenza Type A Ag (NEGATIVE) Influenza Type B Ag (NEGATIVE) RSV (PCR) (Negative) SARS-CoV-2 (PCR) (NEGATIVE) 11/06/21 Range/Units Unknown WBC (4.0-10.5) K/mm3 RBC (4.1-5.4) M/mm3 Hgb (12.0-16.0) gm/dl Hct (35-47) % MCV (78-100) fl MCH (26-32) pg MCHC (32-36) g/dl RDW (11.5-14.0) % Plt Count (150-450) K/mm3 MPV (7.5-11.0) fl Gran % (36.0-66.0) % Eos # (Auto) (0-0.5) Absolute Lymphs (auto) (1.0-4.6) Absolute Monos (auto) (0.0-1.3) Lymphocytes % (24.0-44.0) % Monocytes % (0.0-12.0) % Eosinophils % (0.00-5.0) % Basophils % (0.0-0.4) % Absolute Granulocytes (1.4-6.9) Basophils # (0-0.4) Sodium (137-145) mmol/L Potassium (3.5-5.1) mmol/L Chloride (98-107) mmol/L Carbon Dioxide (22-30) mmol/L Anion Gap (5-15) MEQ/L BUN (7-17) mg/dL Creatinine (0.52-1.04) mg/dL Estimated GFR ML/MIN Glucose (74-106) mg/dL Calcium (8.4-10.2) mg/dL Total Bilirubin (0.2-1.3) mg/dL AST (14-36) U/L ALT (0-35) U/L Alkaline Phosphatase (38-126) U/L Serum Total Protein (6.3-8.2) g/dL Albumin (3.5-5.0) g/dL Urinalys Dipstick Clnc Urine Color (YELLOW) Urine Appearance (CLEAR) Urine pH (5-6) Ur Specific [place] (1.005-1.025) POC Urine Protein Conf (Negative) Urine Ketones (NEGATIVE) Urine Nitrite (NEGATIVE) Urine Bilirubin (NEGATIVE) Urine Urobilinogen (0-1) mg/dL Urine Leukocytes (NEGATIVE) Urine WBC (Auto) (0-5) /HPF Urine RBC (Auto) (0-2) /HPF U Epithel Cells (Auto) (FEW) /HPF Urine RBC (0-5) Joey/ul Urine Mucus (Auto) (NEGATIVE) /HPF Ur Culture Indicated? Urine Glucose (NEGATIVE) mg/dL Influenza Type A Ag NEGATIVE (NEGATIVE) Influenza Type B Ag NEGATIVE (NEGATIVE) RSV (PCR) NEGATIVE (Negative) SARS-CoV-2 (PCR) NEGATIVE (NEGATIVE) - Radiology Impressions Radiology Exams & Impressions: Radiology Procedures Category Date Time Status CHEST 1 VIEW (PORTABLE) Urgent Exams 11/06/21 17:10 Taken - Other Procedures and Tests Respiratory Therapy 11/06/21 12:49 Oxygen NASAL CANNULA 2 lpm Assessment/Plan (1) Migraine Current Visit: No Status: Acute Qualifiers: Migraine type: without aura Status migrainosus presence: with status migrainosus Intractability: intractable Qualified Code(s): G43.011 - Migraine without aura, intractable, with status migrainosus Assessment & Plan: 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 Pt has typically taken a few days to improve. Code(s): G43.909 - MIGRAINE, UNSP, NOT INTRACTABLE, WITHOUT STATUS MIGRAINOSUS (2) Cough Current Visit: Yes Status: Acute Assessment & Plan: check cxr Code(s): R05.9 - COUGH, UNSPECIFIED (3) Multiple sclerosis Current Visit: No Status: Chronic Code(s): G35 - MULTIPLE SCLEROSIS
[2021-11-06] MEDS: Neurontin 400 MG PO SCH ×2 (17:50→22:40)
[2021-11-06] MEDS ORDERED: Ambien 10 MG PO SCH (22:00)
[2021-11-06] MEDS ORDERED: Effexor XR 75 MG PO SCH (22:00)
[2021-11-06] MEDS ORDERED: STADOL 2 MG IJ SCH (22:00)
[2021-11-06] MEDS ORDERED: NON-FORMULARY ITEM (Venlafaxine Hcl [Effexor Xr] 150 MG Cap.Er.24h) PO SCH (22:00)
[2021-11-07] MEDS: solu-MEDROL 60 MG, Sterile H2O 10 ml 2 ML IV SCH ×6 (00:15→11:07)
[2021-11-07] MEDS: Phenergan 25 MG INJ*** 25 MG in Sodium Chloride 0.9% 100 ML IV PRN ×2 (00:15→11:40)
--- NOTE | 2021-11-07 08:42 | XRAY ---
Indication: Cough. Comparison: October 30, 2020. Portable apical lordotic chest again demonstrates normal heart and lungs. Bony thorax intact again with mild osteopenia and degenerative changes. No new/acute findings.
[2021-11-07] MEDS: Neurontin 400 MG PO SCH ×2 (09:12→13:51)
[2021-11-07] MEDS: Sodium Chloride 0.9% 1000 ML 1,000 ML IV SCH (09:12)
[2021-11-07] MEDS ORDERED: Robaxin 500 MG PO SCH (10:00)
[2021-11-07] MEDS ORDERED: Hydromorphone 1 mg/ml Injection IV ONE (11:20)
[2021-11-07 11:36] VITALS: BP 133/68; PULSE 89
--- NOTE | 2021-11-07 11:58 | PCM.NOTE ---
Date and Time: 11/07/21 1156 Subjective Assessment: Feeling better because she slept well, but she didn't get her pain medicine often enough at night so her REHMAN is still substantial. Sravanthi po. - Review of Systems Constitutional: No Fever Neurological: Headache Objective Exam General Appearance: no apparent distress, alert Neurologic Exam: oriented x 3, cooperative Skin Exam: normal color, warm, dry, No rash Ears, Nose, Throat Exam: moist mucous membranes Neck Exam: normal inspection Respiratory Exam: normal breath sounds, lungs clear, No crackles/rales, No rhonchi, No wheezing Cardiovascular Exam: regular rate/rhythm, normal heart sounds, No murmur Gastrointestinal/Abdomen Exam: soft, normal bowel sounds, No tenderness, No distention, No mass, No guarding, No rebound Extremity Exam: normal inspection, No pedal edema, No swelling Back Exam: normal inspection, No rash OBJECTIVE DATA Vital Signs: Vital Signs - 24 hr Temp Pulse Resp BP BP Pulse Ox 11/07/21 11:35 97.7 F 89 17 133/68 94 L 11/07/21 08:00 97.1 F 76 13 119/67 90 L 11/07/21 04:00 97.2 F 82 17 109/61 92 L 11/07/21 00:00 97.1 F 106 H 16 120/60 98 11/06/21 20:00 97.3 F 88 18 117/68 93 L 11/06/21 19:10 93 L 11/06/21 18:26 96 11/06/21 16:00 97.1 F 79 12 133/83 100 11/06/21 12:49 94 L 11/06/21 12:09 97.1 F 59 L 18 128/79 89 L 11/06/21 12:04 92 L Pain Assessment - Last Documented Pain Intensity 6 Pain Scale Used 0-10 Pain Scale Intake and Output: Intake & Output 11/04/21 11/05/21 11/06/21 11/07/21 11:59 11:59 11:59 11:59 Intake Total 1606 Output Total 250 Balance 1356 Weight 82.5 kg Lab Results: Lab Results-Last 24 Hours 11/06/21 11/06/21 11/06/21 Range/Units 11:30 11:30 15:51 WBC 13.9 H (4.0-10.5) K/mm3 RBC 5.48 H (4.1-5.4) M/mm3 Hgb 15.2 (12.0-16.0) gm/dl Hct 47.9 H (35-47) % MCV 87.4 (78-100) fl MCH 27.7 (26-32) pg MCHC 31.7 L (32-36) g/dl RDW 15.8 H (11.5-14.0) % Plt Count 314 (150-450) K/mm3 MPV 11.8 H (7.5-11.0) fl Gran % 63.3 (36.0-66.0) % Eos # (Auto) 0.39 (0-0.5) Absolute Lymphs (auto) 3.62 (1.0-4.6) Absolute Monos (auto) 1.05 (0.0-1.3) Lymphocytes % 26.1 (24.0-44.0) % Monocytes % 7.6 (0.0-12.0) % Eosinophils % 2.8 (0.00-5.0) % Basophils % 0.2 (0.0-0.4) % Absolute Granulocytes 8.77 H (1.4-6.9) Basophils # 0.03 (0-0.4) Sodium 140 (137-145) mmol/L Potassium 3.7 (3.5-5.1) mmol/L Chloride 104 (98-107) mmol/L Carbon Dioxide 26 (22-30) mmol/L Anion Gap 14.6 (5-15) MEQ/L BUN 16 (7-17) mg/dL Creatinine 0.81 (0.52-1.04) mg/dL Estimated GFR > 60.0 ML/MIN Glucose 139 H (74-106) mg/dL Calcium 9.4 (8.4-10.2) mg/dL Total Bilirubin 0.40 (0.2-1.3) mg/dL AST 42 H (14-36) U/L ALT 19 (0-35) U/L Alkaline Phosphatase 87 (38-126) U/L Serum Total Protein 8.2 (6.3-8.2) g/dL Albumin 4.6 (3.5-5.0) g/dL Urinalys Dipstick Clnc MAIN LAB Urine Color YELLOW (YELLOW) Urine Appearance CLEAR (CLEAR) Urine pH 5.5 (5-6) Ur Specific [place] 1.010 (1.005-1.025) POC Urine Protein Conf TRACE (Negative) Urine Ketones NEGATIVE (NEGATIVE) Urine Nitrite NEGATIVE (NEGATIVE) Urine Bilirubin NEGATIVE (NEGATIVE) Urine Urobilinogen 0.2 (0-1) mg/dL Urine Leukocytes NEGATIVE (NEGATIVE) Urine WBC (Auto) 0-2 (0-5) /HPF Urine RBC (Auto) 0-2 (0-2) /HPF U Epithel Cells (Auto) RARE (FEW) /HPF Urine RBC SMALL (0-5) Joey/ul Urine Mucus (Auto) SLIGHT (NEGATIVE) /HPF Ur Culture Indicated? YES Urine Glucose NEGATIVE (NEGATIVE) mg/dL Influenza Type A Ag (NEGATIVE) Influenza Type B Ag (NEGATIVE) RSV (PCR) (Negative) SARS-CoV-2 (PCR) (NEGATIVE) 11/06/21 Range/Units Unknown WBC (4.0-10.5) K/mm3 RBC (4.1-5.4) M/mm3 Hgb (12.0-16.0) gm/dl Hct (35-47) % MCV (78-100) fl MCH (26-32) pg MCHC (32-36) g/dl RDW (11.5-14.0) % Plt Count (150-450) K/mm3 MPV (7.5-11.0) fl Gran % (36.0-66.0) % Eos # (Auto) (0-0.5) Absolute Lymphs (auto) (1.0-4.6) Absolute Monos (auto) (0.0-1.3) Lymphocytes % (24.0-44.0) % Monocytes % (0.0-12.0) % Eosinophils % (0.00-5.0) % Basophils % (0.0-0.4) % Absolute Granulocytes (1.4-6.9) Basophils # (0-0.4) Sodium (137-145) mmol/L Potassium (3.5-5.1) mmol/L Chloride (98-107) mmol/L Carbon Dioxide (22-30) mmol/L Anion Gap (5-15) MEQ/L BUN (7-17) mg/dL Creatinine (0.52-1.04) mg/dL Estimated GFR ML/MIN Glucose (74-106) mg/dL Calcium (8.4-10.2) mg/dL Total Bilirubin (0.2-1.3) mg/dL AST (14-36) U/L ALT (0-35) U/L Alkaline Phosphatase (38-126) U/L Serum Total Protein (6.3-8.2) g/dL Albumin (3.5-5.0) g/dL Urinalys Dipstick Clnc Urine Color (YELLOW) Urine Appearance (CLEAR) Urine pH (5-6) Ur Specific [place] (1.005-1.025) POC Urine Protein Conf (Negative) Urine Ketones (NEGATIVE) Urine Nitrite (NEGATIVE) Urine Bilirubin (NEGATIVE) Urine Urobilinogen (0-1) mg/dL Urine Leukocytes (NEGATIVE) Urine WBC (Auto) (0-5) /HPF Urine RBC (Auto) (0-2) /HPF U Epithel Cells (Auto) (FEW) /HPF Urine RBC (0-5) Joey/ul Urine Mucus (Auto) (NEGATIVE) /HPF Ur Culture Indicated? Urine Glucose (NEGATIVE) mg/dL Influenza Type A Ag NEGATIVE (NEGATIVE) Influenza Type B Ag NEGATIVE (NEGATIVE) RSV (PCR) NEGATIVE (Negative) SARS-CoV-2 (PCR) NEGATIVE (NEGATIVE) Radiology Exams: Radiology Procedures Category Date Time Status CHEST 1 VIEW (PORTABLE) Urgent Exams 11/06/21 17:10 Completed Multi-Disciplinary Progress Notes: Multi-Disciplinary Progress Notes 11/07/21 11:19 Case Management Note by Eryn Grubbs NO ANTICIPATED NEEDS AT D/C. WILL CONTINUE TO FOLLOW FOR ANY NEEDS. Initialized on 11/07/21 11:19 - END OF NOTE Assessment/Plan (1) Migraine Current Visit: No Status: Acute Qualifiers: Migraine type: without aura Status migrainosus presence: with status migrainosus Intractability: intractable Qualified Code(s): G43.011 - Migraine without aura, intractable, with status migrainosus Assessment & Plan: Persistent. Will give an extra dose of dilaudid IV now to help her catch up on her pain regimen. If feeling better today, she may be able to d/c to home. Otherwise, likely home tomorrow. Code(s): G43.909 - MIGRAINE, UNSP, NOT INTRACTABLE, WITHOUT STATUS MIGRAINOSUS (2) Cough Current Visit: Yes Status: Acute Assessment & Plan: CXR was fine. Code(s): R05.9 - COUGH, UNSPECIFIED (3) Multiple sclerosis Current Visit: No Status: Chronic Code(s): G35 - MULTIPLE SCLEROSIS
[2021-11-07 14:14] LABS: Hematocrit 46.1 % (35-47); Hemoglobin 14.4 gm/dl (12.0-16.0); Mean Cell Volume 88.7 fl (78-100); Mean Corpuscular Hemoglobin 27.7 pg (26-32); Mean Corpuscular Hgb Concent. 31.2 g/dl (32-36); Platelet Count 290 K/mm3 (150-450); Red Cell Distribution Width 15.9 % (11.5-14.0); White Blood Count 23.1 K/mm3 (4.0-10.5)
[2021-11-07 14:15] LABS: Mean Platelet Volume 11.6 fl (7.5-11.0)
[2021-11-07] MEDS: DILAUDID 1 MG/1ML PCA IV PRN (15:10)
[2021-11-07 15:14] VITALS: O2SAT 96
--- NOTE | 2021-11-08 16:32 | PCM.DS ---
Discharge Summary Date of Admission: 11/06/21 11:27 Late entry; pt was discharged day of my last exam/progress note. Admitting Physician: MATT ESPOSITO Primary Care Provider: MATT ESPOSITO Allergies Allergies codeine Allergy (Intermediate, Verified 11/11/20 18:26) Itching latex Allergy (Mild, Verified 11/11/20 18:26) Hives zolmitriptan [From Zomig] Allergy (Mild, Verified 11/11/20 18:26) HEART RACE ketorolac tromethamine [From Toradol] Allergy (Verified 11/11/20 18:26) Hives ondansetron HCl [From Zofran] Allergy (Verified 11/11/20 18:26) Swelling sumatriptan [From Imitrex] Allergy (Verified 11/11/20 18:26) [facility] Summary - Hospital Course Hospital Course: Pt is 56 yo female pt of mine with hx MS and chronic headaches who was admitted directly from home with persistent migraine. Labs were non acute. CXR nonacute (pt had some cough). She was given IV pain meds and steroids as per her usual. She improved steadily, tolerated po, and by afternoon of the second day was feeling ready to discharge to home. She will f/u with me in office. - Vitals & Intake/Output Vital Signs: Vital Signs Temperature 97.7 F 11/07/21 11:35 Pulse Rate 89 11/07/21 11:35 Respiratory Rate 17 11/07/21 11:35 Blood Pressure 133/68 11/07/21 11:35 O2 Sat by Pulse Oximetry 96 11/07/21 15:10 Intake & Output: Intake & Output 11/06/21 11/07/21 11/08/21 11/09/21 11:59 11:59 11:59 11:59 Intake Total 1606 1245 Output Total 250 650 Balance 1356 595 Weight 82.5 kg - Lab Result Diagrams: 11/07/21 10:25 11/06/21 11:30 Micro Results-Entire Visit: Microbiology 11/06/21 15:51 Urine Culture - Final Clean Catch Midstream MIXED ISAIAH; 3 OR MORE TYPES. NO PREDOMINANT ORGANISM. NO FURTHER WORKUP. PLEASE RESUBMIT IF CLINICALLY INDICATED. - Radiology Exams Ordered Rad Exams-Entire Visit: Radiology Procedures Category Date Time Status CHEST 1 VIEW (PORTABLE) Urgent Exams 11/06/21 17:10 Completed - Procedures and Test Procedures and Tests throughout Hospitalization: Therapy Orders & Screens 11/06/21 12:08 Smoking Cessation Education ONCE Comment: Diagnosis: MIGRAINE Smoking Status: Current every day smoker How long have you smoked: 20 years Have you smoked in the past 12 months: Yes Approximately how many cigarettes per day: 20 Do you dip or chew tobacco: No 11/06/21 12:49 Oxygen NASAL CANNULA 2 lpm Comment: Diagnosis: MIGRAINE Discharge Exam General Appearance: no apparent distress, alert Neurologic Exam: oriented x 3, cooperative Eye Exam: eyes nml inspection Ears, Nose, Throat Exam: moist mucous membranes Neck Exam: normal inspection Respiratory Exam: normal breath sounds, lungs clear, No crackles/rales, No rho nchi, No wheezing Cardiovascular Exam: regular rate/rhythm, normal heart sounds, No murmur Gastrointestinal/Abdomen Exam: soft, normal bowel sounds, No tenderness, No distention, No mass, No guarding, No rebound Back Exam: normal inspection, No rash Extremity Exam: normal inspection, No pedal edema, No swelling Skin Exam: normal color, warm, dry, No rash Final Diagnosis/Problem List - Final Discharge Diagnosis/Problem (1) Migraine Status: Acute Assessment & Plan: improved. d/c to home to manage normally with stadol. Pt will call with any worsening. Code(s): G43.909 - MIGRAINE, UNSP, NOT INTRACTABLE, WITHOUT STATUS MIGRAINOSUS (2) Cough Status: Acute Code(s): R05.9 - COUGH, UNSPECIFIED (3) Multiple sclerosis Status: Chronic Code(s): G35 - MULTIPLE SCLEROSIS - Discharge Disposition: Home, Self-Care Condition: Stable Prescriptions: Continue Gabapentin 800 mg PO QID Zolpidem Tartrate [Ambien] 10 mg PO HS Methocarbamol 500 mg [Robaxin 500 MG] 500 mg PO DAILY Butorphanol Tartrate [Stadol] 1 spray IH BID Venlafaxine HCl [Effexor Xr] 150 mg PO QHS Promethazine HCl 25 mg [Phenergan 25 mg] 25 mg PO Q6H PRN PRN Reason: Nausea Instructions: Migraines (DC) Follow up with: MATT ESPOSITO [Primary Care Provider] - 12/02/21 10:15 am Forms: Discharge Instructions
== END 2021-11-07 15:45 | disposition home or self-care (01) ==
LOC: MED SURG 11:27
PROVIDERS: ADMIT Family Medicine; ATTEND Family Medicine
DX: G43.909 Migraine, unspecified, not intractable, without status migrainosus (principal); R05.9 Cough, unspecified; G35 Multiple sclerosis; Z20.828 Contact with and (suspected) exposure to other viral communicable diseases; Z79.899 Other long term (current) drug therapy; Z72.0 Tobacco use
CPT/HCPCS: 0241U; 36415; 71045; 80053; 81015; 85025; 85027; 87086; 93268; 94762; G0378; J1170; J2550; J2930; A9270-GY

== ENCOUNTER 2022-10-21 11:52 | Emergency (ER) | payer OTHER, MEDICARE ==
[2022-10-21] MEDS ORDERED: Hydromorphone 1 mg/ml Injection IV ONE ×2 (12:32→16:01)
[2022-10-21] MEDS ORDERED: Phenergan 25 MG INJ*** 25 MG in Sodium Chloride 0.9% 100 ML IV ONE (12:37)
[2022-10-21 12:47] LABS: Absolute Neutrophil Ct (ANC) 8.28 x10^3/uL (1.4-6.9); BASOPHIL % 0.6 % (0.0-0.4); Basophil (Absolute #) 0.08 x10^3/uL (0-0.4); Eosinophil (Absolute #) 0.38 x10^3/uL (0-0.5); Hemoglobin 13.5 g/dL (12.0-16.0); IMMATURE GRAN # 0.05 x10^3u/L (0.00-0.03); IMMATURE GRAN % 0.4 % (0.00-0.4); Lymphocyte (Absolute #) 3.22 x10^3/uL (1.0-4.6); Mean Cell Volume 86.2 fL (78-100); Mean Corpuscular Hemoglobin 27.1 pg (26-32); Mean Corpuscular Hgb Concent. 31.4 g/dL (32-36); Mean Platelet Volume 11.1 fL (7.5-11.0); Monocyte (Absolute #) 0.86 x10^3/uL (0.0-1.3); Monocytes % 6.7 % (0.0-12.0); Neutrophil % 64.3 % (36.0-66.0); Platelet Count 286 x10^3/uL (150-450); Red Blood Count 4.99 x10^6/uL (4.1-5.4); Red Cell Distribution Width 15.5 % (11.5-14.0); White Blood Count 12.9 x10^3/uL (4.0-10.5)
--- NOTE | 2022-10-21 12:51 | ERPHSYRPT ---
- History of Present Illness Time Seen by Provider: 10/21/22 12:51 Exam Limitations: no limitations Patient Subjective Stated Complaint: C/O right upper abdominal pain for the past week that is worsening Triage Nursing Assessment: Patient ambulated back to ER without difficulties. She is alert and oriented. No SOB. Abdomen is distended. Right upper quad painful to palpation. Skin tone normal. Physician History: Patient is a 57-year-old female presents to our ED for evaluation of progressive abdominal distention and right upper quadrant epigastric pain. Patient's last bowel movement was approximately 2 days ago and was primarily loose. Patient followed up with her primary care provider yesterday. A CAT scan was ordered which reveals distended ascending and transverse colon up to 5 cm with remaining distal colon decompressed. The transition point is the splenic flexure. Vitals otherwise stable. No nausea vomiting. No chest pain or shortness of breath. Patient voices no other complaints or concerns at this time. Portions of this note were created with voice recognition technology. There may be grammatical, spelling, punctuation or sound alike errors Timing/Duration: week(s) (1 week) Activities at Onset: none Quality: aching Abdominal Pain Onset Location: epigastric, other (Right abdomen) Pain Radiation: no radiation Severity of Pain-Max: moderate Severity of Pain-Current: mild Modifying Factors: Improves With: other (Palpation worsens symptoms) Associated Symptoms: other (Patient expresses some back discomfort), No chest pain Previous symptoms: no prior history Allergies/Adverse Reactions: codeine Allergy (Intermediate, Verified 10/21/22 12:00) Itching latex Allergy (Mild, Verified 10/21/22 12:00) Hives zolmitriptan [From Zomig] Allergy (Mild, Verified 10/21/22 12:00) HEART RACE ketorolac tromethamine [From Toradol] Allergy (Verified 10/21/22 12:00) Hives ondansetron HCl [From Zofran] Allergy (Verified 10/21/22 12:00) Swelling sumatriptan [From Imitrex] Allergy (Verified 10/21/22 12:00) HEART RACE POUNDING HEART Home Medications: Gabapentin 800 mg PO QID 01/21/17 [History] Zolpidem Tartrate [Ambien] 10 mg PO HS 04/17/20 [History] Butorphanol Tartrate [Stadol] 1 spray IH BID 11/10/20 [History] Methocarbamol [Robaxin] 500 mg PO DAILY 11/10/20 [History] Venlafaxine HCl [Effexor Xr] 150 mg PO QHS 11/10/20 [History] Promethazine HCl 25 mg [Phenergan 25 mg] 25 mg PO Q6H PRN 11/06/21 [History] Hx Tetanus, Diphtheria Vaccination/Date Given: Yes Hx Influenza Vaccination/Date Given: No Hx Pneumococcal Vaccination/Date Given: Yes Immunizations Up to Date: Yes Travel Risk - International Travel Have you traveled outside of the country in past 3 weeks: No - Coronavirus Screening Are you exhibiting any of the following symptoms?: No Close contact with a COVID-19 positive Pt in past 14-21 Days: No - Vaccine Status Have you recieved a Covid-19 vaccination: Yes Manager Information: [employer] - Vaccination Dates Date of 2cond Vaccination (if applicable): ? - Review of Systems Constitutional: No Symptoms, No Fever, No Chills Eyes: No Symptoms Ears, Nose, & Throat: No Symptoms Respiratory: No Symptoms, No Cough, No Dyspnea Cardiac: No Symptoms, No Chest Pain, No Edema, No Syncope Abdominal/Gastrointestinal: No Symptoms, No Abdominal Pain, No Nausea, No Vomiting, No Diarrhea Genitourinary Symptoms: No Symptoms, No Dysuria Musculoskeletal: No Symptoms, No Back Pain, No Neck Pain Skin: No Symptoms, No Rash Neurological: No Symptoms, No Dizziness, No Focal Weakness, No Sensory Changes Psychological: No Symptoms Endocrine: No Symptoms Hematologic/Lymphatic: No Symptoms Immunological/Allergic: No Symptoms All Other Systems: Reviewed and Negative - Past Medical History Pertinent Past Medical History: Yes Neurological History: Migraines, Peripheral Neuropathy ENT History: No Pertinent History Cardiac History: Hypertension Respiratory History: Pneumonia Endocrine Medical History: No Pertinent History Musculoskeletal History: No Pertinent History GI Medical History: Gallbladder Disease History: No Pertinent History Psycho-Social History: No Pertinent History Female Reproductive Disorders: No Pertinent History Other Medical History: Multiple Sclerosis 2007, BONE SPURS IN NECK, Insomnia - Past Surgical History Past Surgical History: Yes Neuro Surgical History: No Pertinent History Cardiac: No Pertinent History Respiratory: No Pertinent History Gastrointestinal: Cholecystectomy Genitourinary: No Pertinent History Musculoskeletal: Other Female Surgical History: No Pertinent History Other Surgical History: rotator cuff repair, right with resulting MRSA infection - Social History Smoking Status: Current every day smoker How long have you smoked: 17 y.o. Exposure to second hand smoke: No Drug Use: none Patient Lives Alone: No Significant Family History: cancer (M Breast Ca. Father lung ca) - Nursing Vital Signs Nursing Vital Signs: Initial Vital Signs Temperature 98 F 10/21/22 12:01 Pulse Rate 102 H 10/21/22 12:01 Respiratory Rate 17 10/21/22 12:01 Blood Pressure 155/90 10/21/22 12:01 O2 Sat by Pulse Oximetry 96 10/21/22 12:01 Pain Scale Pain Intensity 0 - Physical Exam General Appearance: no apparent distress, alert Eye Exam: PERRL/EOMI, eyes nml inspection Ears, Nose, Throat Exam: normal ENT inspection, TMs normal, pharynx normal, moist mucous membranes Neck Exam: normal inspection, non-tender, supple, full range of motion Respiratory Exam: normal breath sounds, lungs clear, airway intact, No respiratory distress Cardiovascular Exam: regular rate/rhythm, normal heart sounds, normal peripheral pulses Gastrointestinal/Abdomen Exam: soft, tenderness (Distended and tender abdomen. Abdominal pain comparable to yesterday. No indication for repeat CAT abdomen and pelvis at this time.), No mass Back Exam: normal inspection, normal range of motion, No CVA tenderness, No vertebral tenderness Extremity Exam: normal inspection, normal range of motion, pelvis stable Neurologic Exam: alert, oriented x 3, cooperative, normal mood/affect, nml cerebellar function, sensation nml, No motor deficits Skin Exam: normal color, warm, dry Lymphatic Exam: No adenopathy SpO2 Interpretation: normal SpO2: 96 O2 Delivery: Room Air - Course Nursing assessment & vital signs reviewed: Yes Ordered Tests: Active Orders 24 hr Category Date Time Status IV Insertion STAT Care 10/21/22 12:32 Active NPO (ED) STAT Care 10/21/22 13:37 Active Telemetry q4h Care 10/21/22 13:36 Active CHEST 1 VIEW (PORTABLE) Stat Exams 10/21/22 15:00 Taken CBC W DIFF Stat Lab 10/21/22 12:40 Completed CMP Stat Lab 10/21/22 12:40 Completed LIPASE Stat Lab 10/21/22 12:40 Completed TROPONIN Q4H Lab 10/21/22 12:40 Completed TROPONIN Q4H Lab 10/21/22 16:45 Ordered TROPONIN Q4H Lab 10/21/22 20:45 Ordered UA W/RFX UR CULTURE Stat Lab 10/21/22 13:19 Completed Medication Summary Generic Name Dose Route Start Last Admin Trade Name Yelitza PRN Reason Stop Dose Admin Potassium Chloride 20 meq in 100 mls @ 50 mls/hr 10/21/22 13:45 10/21/22 13:52 Potassium Chloride 20 Meq In Water 100ml IV 10/21/22 17:44 50 mls/hr Q2H GEORGINA Administration Magnesium Sulfate/Dextrose 100 mls @ 100 mls/hr 10/21/22 13:45 10/21/22 14:30 Magnesium 1 Gm / 100 Ml D5w IV 10/21/22 15:44 100 mls/hr Q1H GEORGINA Administration Sodium Chloride 1,000 mls @ 100 mls/hr 10/21/22 13:45 10/21/22 13:51 Sodium Chloride 0.9% 1000 Ml IV 11/20/22 13:44 100 mls/hr .Q10H GEORGINA Administration Discontinued Medications Generic Name Dose Route Start Last Admin Trade Name Yelitza PRN Reason Stop Dose Admin Hydromorphone HCl 0.5 mg 10/21/22 12:32 10/21/22 13:15 Hydromorphone 1 Mg/1ml Inj IV 10/21/22 12:33 0.5 mg STAT ONE Administration Hydromorphone HCl Confirm 10/21/22 13:14 Hydromorphone 1 Mg/1ml Inj Administered 10/21/22 13:15 Dose 1 mg .ROUTE .STK-MED ONE Promethazine HCl 25 mg/ Sodium 101 mls @ 200 mls/hr 10/21/22 12:37 10/21/22 12:59 Chloride IV 10/21/22 13:07 200 mls/hr STAT ONE Administration Lab/Rad Data: Laboratory Result Diagrams 10/21/22 12:40 10/21/22 12:40 Laboratory Results 10/21/22 10/21/22 10/21/22 Range/Units 13:19 12:40 12:40 WBC (4.0-10.5) x10^3/uL RBC (4.1-5.4) x10^6/uL Hgb (12.0-16.0) g/dL Hct (35-47) % MCV (78-100) fL MCH (26-32) pg MCHC (32-36) g/dL RDW (11.5-14.0) % Plt Count (150-450) x10^3/uL MPV (7.5-11.0) fL Gran % (36.0-66.0) % Immature Gran % (Auto) (0.00-0.4) % Nucleat RBC Rel Count (0.00-0.1) % Eos # (Auto) (0-0.5) x10^3/uL Immature Gran # (Auto) (0.00-0.03) x10^3u/L Absolute Lymphs (auto) (1.0-4.6) x10^3/uL Absolute Monos (auto) (0.0-1.3) x10^3/uL Absolute Nucleated RBC (0.00-0.01) x10^3u/L Lymphocytes % (24.0-44.0) % Monocytes % (0.0-12.0) % Eosinophils % (0.00-5.0) % Basophils % (0.0-0.4) % Absolute Granulocytes (1.4-6.9) x10^3/uL Basophils # (0-0.4) x10^3/uL Sodium (137-145) mmol/L Potassium (3.5-5.1) mmol/L Chloride (98-107) mmol/L Carbon Dioxide (22-30) mmol/L Anion Gap (5-15) MEQ/L BUN (7-17) mg/dL Creatinine (0.52-1.04) mg/dL Estimated GFR ML/MIN Glucose (74-106) mg/dL Calcium (8.4-10.2) mg/dL Total Bilirubin (0.2-1.3) mg/dL AST (14-36) U/L ALT (0-35) U/L Alkaline Phosphatase (38-126) U/L Troponin I < 0.012 (0.000-0.034) ng/mL Serum Total Protein (6.3-8.2) g/dL Albumin (3.5-5.0) g/dL Lipase (23-300) U/L Urine Color Yellow (Yellow) Urine Appearance Clear (Clear) Urine pH 6.0 (4.6-8.0) Ur Specific [place] <=1.005 (1.005-1.030) Urine Protein Negative (Negative) Urine Glucose (UA) Negative (Negative) mg/dL Urine Ketones Negative (Negative) Urine Blood Trace (Negative) Urine Nitrite Negative (Negative) Urine Bilirubin Negative (Negative) Urine Urobilinogen 0.2 (0.2) mg/dL Ur Leukocyte Esterase Negative (Negative) U Hyaline Cast (Auto) NONE SEEN (0-2) /LPF Urine Microscopic RBC 0-2 (0-5) /HPF Urine Microscopic WBC 0-2 (0-5) /HPF Ur Epithelial Cells None Seen (None Seen) /HPF Urine Bacteria None Seen (None Seen) /HPF Urine Culture Reflexed NO (NO) Influenza Type A Ag NEGATIVE (NEGATIVE) Influenza Type B Ag NEGATIVE (NEGATIVE) RSV (PCR) NEGATIVE (NEGATIVE) SARS-CoV-2 (PCR) NEGATIVE (NEGATIVE) 10/21/22 10/21/22 Range/Units 12:40 12:40 WBC 12.9 H (4.0-10.5) x10^3/uL RBC 4.99 (4.1-5.4) x10^6/uL Hgb 13.5 (12.0-16.0) g/dL Hct 43.0 (35-47) % MCV 86.2 (78-100) fL MCH 27.1 (26-32) pg MCHC 31.4 L (32-36) g/dL RDW 15.5 H (11.5-14.0) % Plt Count 286 (150-450) x10^3/uL MPV 11.1 H (7.5-11.0) fL Gran % 64.3 (36.0-66.0) % Immature Gran % (Auto) 0.4 (0.00-0.4) % Nucleat RBC Rel Count 0.0 (0.00-0.1) % Eos # (Auto) 0.38 (0-0.5) x10^3/uL Immature Gran # (Auto) 0.05 H (0.00-0.03) x10^3u/L Absolute Lymphs (auto) 3.22 (1.0-4.6) x10^3/uL Absolute Monos (auto) 0.86 (0.0-1.3) x10^3/uL Absolute Nucleated RBC 0.00 (0.00-0.01) x10^3u/L Lymphocytes % 25.0 (24.0-44.0) % Monocytes % 6.7 (0.0-12.0) % Eosinophils % 3.0 (0.00-5.0) % Basophils % 0.6 (0.0-0.4) % Absolute Granulocytes 8.28 H (1.4-6.9) x10^3/uL Basophils # 0.08 (0-0.4) x10^3/uL Sodium 139 (137-145) mmol/L Potassium 3.2 L (3.5-5.1) mmol/L Chloride 101 (98-107) mmol/L Carbon Dioxide 28 (22-30) mmol/L Anion Gap 12.7 (5-15) MEQ/L BUN 9 (7-17) mg/dL Creatinine 0.65 (0.52-1.04) mg/dL Estimated GFR > 60.0 ML/MIN Glucose 121 H (74-106) mg/dL Calcium 9.2 (8.4-10.2) mg/dL Total Bilirubin 0.50 (0.2-1.3) mg/dL AST 30 (14-36) U/L ALT 25 (0-35) U/L Alkaline Phosphatase 71 (38-126) U/L Troponin I (0.000-0.034) ng/mL Serum Total Protein 8.3 H (6.3-8.2) g/dL Albumin 4.5 (3.5-5.0) g/dL Lipase 65 (23-300) U/L Urine Color (Yellow) Urine Appearance (Clear) Urine pH (4.6-8.0) Ur Specific [place] (1.005-1.030) Urine Protein (Negative) Urine Glucose (UA) (Negative) mg/dL Urine Ketones (Negative) Urine Blood (Negative) Urine Nitrite (Negative) Urine Bilirubin (Negative) Urine Urobilinogen (0.2) mg/dL Ur Leukocyte Esterase (Negative) U Hyaline Cast (Auto) (0-2) /LPF Urine Microscopic RBC (0-5) /HPF Urine Microscopic WBC (0-5) /HPF Ur Epithelial Cells (None Seen) /HPF Urine Bacteria (None Seen) /HPF Urine Culture Reflexed (NO) Influenza Type A Ag (NEGATIVE) Influenza Type B Ag (NEGATIVE) RSV (PCR) (NEGATIVE) SARS-CoV-2 (PCR) (NEGATIVE) - Progress Progress: improved Progress Note: Case discussed with Dr. Mercedes advises transfer to [facility] as well as NG insertion 10/21/22 13:30 Patient is a 57-year-old female presents to our ED as a referral from Dr. Allen's office. Outpatient CT abdomen pelvis reveals a bowel obstruction. Case dis cussed with general surgeon who advises transfer. Work-up entails CBC CMP. Chemistry reveals a hypokalemia. Potassium and magnesium replaced. Chest x-ray ordered to observe placement of NG tube. NG tube in good placement. COVID test negative. Lipase negative. Troponin negative. Urinalysis negative. Patient requested Dilaudid and Phenergan. Normal saline infused. Patient reassessed. Patient resting comfortably. Vital stable. Patient be transported to higher level of care. Portions of this note were created with voice recognition technology. There may be grammatical, spelling, punctuation or sound alike errors Complexity of problem addressed is moderate new diagnosis with uncertain prognosis. No critical care time. Complexity of data reviewed and analyzed is extensive. Patient served as independent historian however patient's significant other at bedside also provided significant information and contributed to HPI. Outside documentation reviewed by Dr. Negrete. CT abdomen pelvis and outpatient laboratory work-up evaluated. Management discussed with general surgeon. Risk of complication and or risk morbidity/mortality of patient management is high. Patient received IV controlled medications. Dilaudid administered. Patient requires hospitalization for further evaluation and treatment. Patient agrees to transfer to [facility] for further evaluation and treatment. Vital stable. Diagnosis abdominal pain, bowel obstruction 10/21/22 15:59 Discussed with .: Yvon Will see patient in: other Counseled pt/family regarding: lab results, diagnosis, rad results - Departure Departure Disposition: Transfer Clinical Impression: Hypokalemia, Bowel obstruction, Abdominal pain Condition: Stable Critical Care Time: No Referrals: [facility] [Primary Care Provider] - Follow up/PCP as directed
[2022-10-21 13:01] LABS: ALBUMIN 4.5 g/dL (3.5-5.0); ALKALINE PHOSPHATASE 71 U/L (38-126); ANION GAP 12.7 MEQ/L (5-15); BLOOD UREA NITROGEN 9 mg/dL (7-17); CHLORIDE 101 mmol/L (98-107); Calcium 9.2 mg/dL (8.4-10.2); Carbon Dioxide 28 mmol/L (22-30); Creatinine 1 0.65 mg/dL (0.52-1.04); EST GLOMERULAR FILTRATION RATE > 60.0 ML/MIN; Glucose 121 mg/dL (74-106); LIPASE 65 U/L (23-300); Potassium 3.2 mmol/L (3.5-5.1); SGOT/AST 30 U/L (14-36); SGPT/ALT 25 U/L (0-35); SODIUM 139 mmol/L (137-145); Total Protein 8.3 g/dL (6.3-8.2)
[2022-10-21] MEDS ORDERED: Hydromorphone 1 mg/ml Injection ONE ×2 (13:14→16:02)
[2022-10-21 13:24] LABS: INFLUENZA A NEGATIVE (NEGATIVE); INFLUENZA B NEGATIVE (NEGATIVE); RESPIRATORY SYNCTIAL VIRUS NEGATIVE (NEGATIVE); SARS-CoV-2 Xpert Express NEGATIVE (NEGATIVE)
[2022-10-21] MEDS ORDERED: Sodium Chloride 0.9% 1000 ML 1,000 ML IV SCH (13:45)
[2022-10-21] MEDS ORDERED: POTASSIUM CHLORIDE 20 mEq IN WATER 100ML 100 ML IV ONE ×2 (13:48→16:00)
[2022-10-21] MEDS: Magnesium 1 Gm / 100 Ml D5W*** 100 ML IV SCH ×2 (13:51→14:30)
[2022-10-21] MEDS: POTASSIUM CHLORIDE 20 mEq IN WATER 100ML 20 MEQ/100 ML BAG IV SCH ×2 (13:52→16:01)
[2022-10-21 14:15] LABS: Appearance Clear (Clear); Bacteria None Seen /HPF (None Seen); Bilirubin Negative (Negative); Blood Trace (Negative); Epithelial Cells None Seen /HPF (None Seen); Glucose, Urine Negative (Negative); Hyaline Casts NONE SEEN /LPF (0-2); Ketones Negative (Negative); Leukocyte Esterase Negative (Negative); Nitrite Negative (Negative); Protein,Urine Dip Negative (Negative); RBC 0-2 /HPF (0-5); Specific Gravity <=1.005 (1.005-1.030); Urobilinogen 0.2 mg/dL (0.2); WBC 0-2 /HPF (0-5)
[2022-10-21 14:24] LABS: ADD URINE CULTURE? NO (NO)
[2022-10-21 15:02] VITALS: BP 134/93; PULSE 77
[2022-10-21 16:02] VITALS: O2SAT 96
--- NOTE | 2022-10-21 16:25 | XRAY ---
Indication: NG tube placement. Comparison: January 12, 2022 Portable chest demonstrates new NG tube traversing chest with tip in stomach. Remaining heart and lungs unremarkable.
== END 2022-10-21 16:00 | disposition short-term general hospital (02) ==
LOC: ED 11:52
DX: K56.609 Unspecified intestinal obstruction, unspecified as to partial versus complete obstruction (principal); E87.6 Hypokalemia; R10.11 Right upper quadrant pain; R10.13 Epigastric pain; I10 Essential (primary) hypertension; Z79.899 Other long term (current) drug therapy; Z72.0 Tobacco use
CPT/HCPCS: 0241U; 36000; 36415; 71045; 80053; 81001; 83690; 84484; 85025; 96365; 96366; 96368; 96374; 96375; 99285; J1170; J2550; J3475; J3480

== ENCOUNTER 2023-03-03 06:23 | Day surgery (SDC) | payer OTHER, MEDICARE ==
[2023-03-03] MEDS ORDERED: Lactated Ringers 1,000 ML IV SCH (07:00)
[2023-03-03 07:09] VITALS: RESP 18
[2023-03-03] MEDS ORDERED: Lactated Ringers 1,000 ML IV ONE (07:19)
[2023-03-03] MEDS ORDERED: Xylocaine-Mpf 2% 5 Ml Vial ONE (07:41)
[2023-03-03] MEDS ORDERED: DIPRIVAN 200 MG/20 ML IV ONE (07:42)
[2023-03-03] MEDS ORDERED: Versed 2 MG/2 ML Injection ONE (07:54)
[2023-03-03 09:04] VITALS: TEMP 97.4; O2SAT 93
[2023-03-03 09:08] VITALS: BP 146/85; PULSE 79
--- NOTE | 2023-03-03 09:47 | OP ---
SURGERY DATE/TIME: 03/03/2023 0808 PREOPERATIVE DIAGNOSES: 1) Epigastric abdominal pain. 2) Abdominal bloating. POSTOPERATIVE DIAGNOSIS: Presumed delayed gastric emptying. PROCEDURE: EGD. SURGEON: Leonardo Hill M.D. ANESTHESIA: MAC by Taz Graham CRNA. ESTIMATED BLOOD LOSS: None. SPECIMENS: None. DESCRIPTION OF PROCEDURE: After informed written consent was obtained, the patient was taken to the endoscopy suite. She was placed in the left lateral decubitus position and a bite block inserted. Anesthesia was titrated to the desired level of consciousness. The endoscope was inserted into the posterior oropharynx. Under direct visualization the esophagus was easily traversed with no mucosal abnormalities or strictures identified. Upon entering the stomach, there was a normal gastroesophageal junction again with no mucosal abnormalities. Upon entry into the stomach, there was undigested food present in the gastric cavity but there were no obvious mucosal abnormalities. No ulcerations or bleeding. No other lesions were encountered. The pylorus had a normal appearance. There were no strictures or abnormalities encountered there. The pylorus was traversed. The first and second portions of the duodenum showed normal mucosa with no stricture, no ulceration or mucosal abnormalities. Upon withdrawal again inspection showed undigested food which did obscure views of the gastric mucosa but there was no distention or fluid present. Upon withdrawal again the gastroesophageal junction and esophageal mucosa all appeared normal. The scope was removed. The patient was transferred to the recovery room in good condition. I have made no changes to her medications. I have recommended a low residue diet and she will follow up with Dr. Meyer, her primary care physician, to consider gastric emptying studies and/or referral to motility clinic at [facility].
== END 2023-03-03 09:16 | disposition home or self-care (01) ==
LOC: SDC 06:23
PROVIDERS: ATTEND Family Medicine
DX: K30 Functional dyspepsia (principal); R10.9 Unspecified abdominal pain; R14.0 Abdominal distension (gaseous)
CPT/HCPCS: J2250; J2704

== ENCOUNTER 2023-07-05 14:19 | Observation (INO) | payer OTHER, MEDICARE ==
[2023-07-05] MEDS ORDERED: SUBLIMAZE 100 MCG/2 ML IV ONE ×2 (14:46→16:38)
[2023-07-05] MEDS ORDERED: Reglan 10 MG/2 ML IV ONE (14:47)
[2023-07-05] MEDS ORDERED: Sodium Chloride 0.9% 1000 ML 1,000 ML IV STA (14:48)
[2023-07-05] MEDS ORDERED: Reglan 10 MG/2 ML ONE (14:53)
[2023-07-05] MEDS ORDERED: SUBLIMAZE 100 MCG/2 ML ONE ×2 (14:53→16:38)
[2023-07-05] MEDS ORDERED: Sodium Chloride 0.9% 1000 ML 1,000 ML ONE (14:53)
--- NOTE | 2023-07-05 15:08 | ERPHSYRPT ---
- History of Present Illness Time Seen by Provider: 07/05/23 14:50 Source: patient, family Exam Limitations: no limitations Patient Subjective Stated Complaint: Pt states "it all started yesterday. I have pain in my sides and my lower belly and it makes it hard to move or breath." Triage Nursing Assessment: Pt presented alert and oriented x 3, skin pwd. Pt ambulates with a slow gait, moaning and hunched over. Physician History: Patient is a 57-year-old white female who on Wednesday or 4 days ago started with coughing and fever. She started with coughing and fever. But today developed or yesterday developed bilateral flank pain and lower abdominal pain last evening. She now says that it hurts to breathe because of her abdominal and belly pain Timing/Duration: day(s) (4) Severity: severe Modifying Factors: Improves With: movement Associated Symptoms: nausea, vomiting, abdominal pain Allergies/Adverse Reactions: butorphanol Allergy (Intermediate, Verified 07/05/23 14:34) Hives codeine Allergy (Intermediate, Verified 03/03/23 06:48) Itching latex Allergy (Mild, Verified 03/03/23 06:48) Hives zolmitriptan [From Zomig] Allergy (Mild, Verified 03/03/23 06:48) HEART RACE ketorolac tromethamine [From Toradol] Allergy (Verified 03/03/23 06:48) Hives ondansetron HCl [From Zofran] Allergy (Verified 03/03/23 06:48) Swelling sumatriptan [From Imitrex] Allergy (Verified 03/03/23 06:48) HEART RACE POUNDING HEART Home Medications: Gabapentin 800 mg PO QID 01/21/17 [History] Zolpidem Tartrate [Ambien] 10 mg PO HS 04/17/20 [History] Venlafaxine HCl [Effexor Xr] 150 mg PO QHS 11/10/20 [History] Promethazine HCl 25 mg [Phenergan 25 mg] 25 mg PO Q6H PRN 11/06/21 [History] Amlodipine Besylate 5 mg [Norvasc 5 mg] 1 tab PO HS 01/22/23 [History] Metoprolol Succinate 1 tab PO DAILY 01/22/23 [History] Mirabegron [Myrbetriq] 1 tab PO DAILY 01/22/23 [History] Cetirizine HCl [Zyrtec] 10 mg PO DAILY 03/03/23 [History] Famotidine [Pepcid] 20 mg PO UD 03/03/23 [History] Cyclobenzaprine HCl [Cyclobenzaprine HCl ER] 30 mg PO DAILY 07/05/23 [History] Hx Tetanus, Diphtheria Vaccination/Date Given: Yes Hx Influenza Vaccination/Date Given: No Hx Pneumococcal Vaccination/Date Given: Yes Immunizations Up to Date: Yes Travel Risk - International Travel Have you traveled outside of the country in past 3 weeks: No - Coronavirus Screening Symptoms: Fever, Cough: New Onset, Shortness of Breath, Headaches/Body Aches/Fatigue Close contact with a COVID-19 positive Pt in past 14-21 Days: No - Vaccine Status Have you recieved a Covid-19 vaccination: Yes Splitter Operator: Mayomi - Vaccination Dates Date of 2cond Vaccination (if applicable): ? - Review of Systems Constitutional: Fever, Chills, Weakness Eyes: No Symptoms Ears, Nose, & Throat: No Symptoms Respiratory: Cough, Dyspnea Cardiac: Chest Pain, No Edema, No Syncope Abdominal/Gastrointestinal: Abdominal Pain, Nausea, No Diarrhea Genitourinary Symptoms: No Dysuria Musculoskeletal: No Back Pain, No Neck Pain Skin: No Rash Neurological: No Dizziness, No Focal Weakness, No Sensory Changes Psychological: No Symptoms Endocrine: No Symptoms All Other Systems: Reviewed and Negative - Past Medical History Pertinent Past Medical History: Yes Neurological History: Migraines, Peripheral Neuropathy, Other ENT History: No Pertinent History Cardiac History: Hypertension Respiratory History: Pneumonia Endocrine Medical History: No Pertinent History Musculoskeletal History: No Pertinent History GI Medical History: Gallbladder Disease History: No Pertinent History Psycho-Social History: No Pertinent History Female Reproductive Disorders: No Pertinent History Other Medical History: Multiple Sclerosis 2007, BONE SPURS IN NECK, Insomnia, multiple UTIs - Past Surgical History Past Surgical History: Yes Neuro Surgical History: No Pertinent History Cardiac: No Pertinent History Respiratory: No Pertinent History Gastrointestinal: Cholecystectomy Genitourinary: No Pertinent History Musculoskeletal: Other Female Surgical History: No Pertinent History Other Surgical History: rotator cuff repair right arm, right with resulting MRSA infection, port placed and removed - Social History Smoking Status: Current every day smoker How long have you smoked: 40 Exposure to second hand smoke: No Drug Use: none Patient Lives Alone: No Significant Family History: cancer (M Breast Ca. Father lung ca) - Nursing Vital Signs Nursing Vital Signs: Initial Vital Signs Temperature 102 F 07/05/23 14:30 Pulse Rate 143 H 07/05/23 14:30 Respiratory Rate 22 07/05/23 14:30 Blood Pressure 109/67 07/05/23 14:30 O2 Sat by Pulse Oximetry 94 L 07/05/23 14:30 Pain Scale Pain Intensity 7 - Physical Exam General Appearance: mild distress, alert Eye Exam: PERRL/EOMI, eyes nml inspection Ears, Nose, Throat Exam: normal ENT inspection, TMs normal, pharynx normal, moist mucous membranes Neck Exam: normal inspection, non-tender, supple, full range of motion Respiratory Exam: respiratory distress, crackles/rales Cardiovascular Exam: regular rate/rhythm, normal heart sounds, normal peripheral pulses Gastrointestinal/Abdomen Exam: normal bowel sounds, tenderness, guarding, rebound, No mass Back Exam: normal inspection, normal range of motion, No CVA tenderness, No vertebral tenderness Extremity Exam: normal inspection, normal range of motion, pelvis stable Neurologic Exam: alert, oriented x 3, cooperative, normal mood/affect, nml cerebellar function, nml station & gait, sensation nml, No motor deficits Skin Exam: normal color, warm, dry, No rash Lymphatic Exam: No adenopathy SpO2 Interpretation: normal SpO2: 94 O2 Delivery: Room Air - Course Nursing assessment & vital signs reviewed: Yes EKG Interpreted by Me: RATE ([id number]), Sinus Tach, NORMAL AXIS, NORMAL INTERVALS, Non-specific ST Changes - CT Exams Chest CT Interpretation: Other (Left lower lobe pneumonia) Abdomen/Pelvis CT Interpretation: Negative Ordered Tests: Active Orders 24 hr Category Date Time Status EKG-ER Only STAT Care 07/05/23 14:48 Active IV Insertion STAT Care 07/05/23 14:48 Active ABDOMEN AND PELVIS W CONTRAST [CT] Stat Exams 07/05/23 14:48 Completed CHEST WITH CONTRAST [CT] Stat Exams 07/05/23 14:48 Completed BLOOD CULTURE Stat Lab 07/05/23 16:25 Received CBC W DIFF Stat Lab 07/05/23 15:30 Results CMP Stat Lab 07/05/23 15:30 Completed LIPASE Stat Lab 07/05/23 15:30 Completed Lactic Acid Stat Lab 07/05/23 15:27 Completed Manual Differential NC Stat Lab 07/05/23 15:30 Results Pathologist Review Stat Lab 07/05/23 15:30 Results TROPONIN Q4H Lab 07/05/23 15:30 Completed TROPONIN Q4H Lab 07/05/23 19:00 Ordered TROPONIN Q4H Lab 07/05/23 23:00 Ordered UA W/RFX UR CULTURE Stat Lab 07/05/23 16:37 Ordered Medication Summary Generic Name Dose Route Start Last Admin Trade Name Yelitza PRN Reason Stop Dose Admin Potassium Chloride/Sodium Chloride 1,000 mls @ 100 mls/hr 07/05/23 16:15 07/05/23 16:11 Sodium Chloride 0.9% W/ 20 Meq Kcl/Liter IV 08/04/23 16:14 100 mls/hr .Q10H GEORGINA Administration Ceftriaxone Sodium/Dextrose 1 g in 50 mls @ 100 mls/hr 07/05/23 17:10 Rocephin 1 Gm-D5w 50 Ml Bag IV 07/05/23 17:39 STAT STA Azithromycin 500 mg in 250 mls @ 250 mls/hr 07/05/23 17:11 Zithromax 500 Mg/ 250 Ml Nacl Premix IV 07/05/23 18:10 STAT ONE Discontinued Medications Generic Name Dose Route Start Last Admin Trade Name Yelitza PRN Reason Stop Dose Admin Fentanyl Citrate 100 mcg 07/05/23 14:46 07/05/23 14:55 Fentanyl Citrate 100 Mcg/2 Ml* Vial IV 07/05/23 14:47 100 mcg STAT ONE Administration Fentanyl Citrate Confirm 07/05/23 14:53 Fentanyl Citrate 100 Mcg/2 Ml* Vial Administered 07/05/23 14:54 Dose 100 mcg .ROUTE .STK-MED ONE Fentanyl Citrate 100 mcg 07/05/23 16:38 07/05/23 16:41 Fentanyl Citrate 100 Mcg/2 Ml* Vial IV 07/05/23 16:39 100 mcg STAT ONE Administration Fentanyl Citrate Confirm 07/05/23 16:38 Fentanyl Citrate 100 Mcg/2 Ml* Vial Administered 07/05/23 16:39 Dose 100 mcg .ROUTE .STK-MED ONE Sodium Chloride 1,000 mls @ 999 mls/hr 07/05/23 14:48 07/05/23 15:59 Sodium Chloride 0.9% 1000 Ml IV 07/05/23 15:48 Infused .Q1H1M STA Infusion Sodium Chloride Confirm 07/05/23 14:53 Sodium Chloride 0.9% 1000 Ml Administered 07/05/23 14:54 Dose 1,000 mls @ ud .ROUTE .STK-MED ONE Metoclopramide HCl 10 mg 07/05/23 14:47 07/05/23 14:55 Metoclopramide Hcl 10 Mg/2 Ml Vial IV 07/05/23 14:48 10 mg STAT ONE Administration Metoclopramide HCl Confirm 07/05/23 14:53 Metoclopramide Hcl 10 Mg/2 Ml Vial Administered 07/05/23 14:54 Dose 10 mg .ROUTE .STK-MED ONE Lab/Rad Data: Laboratory Result Diagrams 07/05/23 15:30 07/05/23 15:30 Laboratory Results 07/05/23 07/05/23 07/05/23 Range/Units 15:35 15:30 15:30 WBC (4.0-10.5) x10^3/uL RBC (4.1-5.4) x10^6/uL Hgb (12.0-16.0) g/dL Hct (35-47) % MCV (78-100) fL MCH (26-32) pg MCHC (32-36) g/dL RDW (11.5-14.0) % Plt Count (150-450) x10^3/uL MPV (7.5-11.0) fL Segmented Neutrophils (36.0-66.0) % Band Neutrophils (0.0-2.0) % Lymphocytes (Manual) (24-44) % Monocytes (Manual) (0.0-12.0) % Toxic Granulation Platelet Estimate (NORMAL) RBC Morphology Anisocytosis Smear Path Review Sodium 130 L (137-145) mmol/L Potassium 2.9 L* (3.5-5.1) mmol/L Chloride 98 (98-107) mmol/L Carbon Dioxide 21 L (22-30) mmol/L Anion Gap 13.7 (5-15) MEQ/L BUN 6 L (7-17) mg/dL Creatinine 0.76 (0.52-1.04) mg/dL Estimated GFR 90.8 ML/MIN Glucose 178 H (74-106) mg/dL Lactic Acid (0.4-2.0) Calcium 8.9 (8.4-10.2) mg/dL Total Bilirubin 0.90 (0.2-1.3) mg/dL AST 20 (14-36) U/L ALT 20 (0-35) U/L Alkaline Phosphatase 75 (38-126) U/L Troponin I < 0.012 (0.000-0.034) ng/mL Serum Total Protein 7.6 (6.3-8.2) g/dL Albumin 4.0 (3.5-5.0) g/dL Lipase 13 L (23-300) U/L Influenza Type A Ag NEGATIVE (NEGATIVE) Influenza Type B Ag NEGATIVE (NEGATIVE) RSV (PCR) NEGATIVE (NEGATIVE) SARS-CoV-2 (PCR) NEGATIVE (NEGATIVE) 07/05/23 07/05/23 Range/Units 15:30 15:27 WBC 26.6 H* (4.0-10.5) x10^3/uL RBC 5.26 (4.1-5.4) x10^6/uL Hgb 14.2 (12.0-16.0) g/dL Hct 44.0 (35-47) % MCV 83.7 (78-100) fL MCH 27.0 (26-32) pg MCHC 32.3 (32-36) g/dL RDW 14.8 H (11.5-14.0) % Plt Count 260 (150-450) x10^3/uL MPV 11.2 H (7.5-11.0) fL Segmented Neutrophils 89 H (36.0-66.0) % Band Neutrophils 3 H (0.0-2.0) % Lymphocytes (Manual) 5 L (24-44) % Monocytes (Manual) 3 (0.0-12.0) % Toxic Granulation 1+ Platelet Estimate NORMAL (NORMAL) RBC Morphology ABNORMAL Anisocytosis 1+ Smear Path Review Pending Sodium (137-145) mmol/L Potassium (3.5-5.1) mmol/L Chloride (98-107) mmol/L Carbon Dioxide (22-30) mmol/L Anion Gap (5-15) MEQ/L BUN (7-17) mg/dL Creatinine (0.52-1.04) mg/dL Estimated GFR ML/MIN Glucose (74-106) mg/dL Lactic Acid 3.6 H (0.4-2.0) Calcium (8.4-10.2) mg/dL Total Bilirubin (0.2-1.3) mg/dL AST (14-36) U/L ALT (0-35) U/L Alkaline Phosphatase (38-126) U/L Troponin I (0.000-0.034) ng/mL Serum Total Protein (6.3-8.2) g/dL Albumin (3.5-5.0) g/dL Lipase (23-300) U/L Influenza Type A Ag (NEGATIVE) Influenza Type B Ag (NEGATIVE) RSV (PCR) (NEGATIVE) SARS-CoV-2 (PCR) (NEGATIVE) - Progress Progress: unchanged Discussed with Dr.: Other (Jocelyn Rice) Will see patient in: hospital (observation) Counseled pt/family regarding: lab results, diagnosis Medical Desision Making - Independent Historian Additional History obtained from: Spouse - Discussion of managment Care discussed with:: hospitalist Reviewed:: Test results, Need for additional workup Agreed on:: Treatment plan, decision to admit Will see patient: in hospital - Diagnostic Testing Diagnostic test were ordered, analyzed, and reviewed by me: Yes Radiological Interpretation: Reviewed by me - Risk of complications The pt has a mod risk of morbidity or mortality based on: Need for prescription drug management - Departure Departure Disposition: Observation Clinical Impression: Left lower lobe pneumonia, Abdominal pain Condition: Stable Critical Care Time: No Referrals: MATT ESPOSITO [Primary Care Provider] - Follow up/PCP as directed
[2023-07-05 15:42] LABS: Hemoglobin 14.2 g/dL (12.0-16.0); Mean Cell Volume 83.7 fL (78-100); Mean Corpuscular Hgb Concent. 32.3 g/dL (32-36); Mean Platelet Volume 11.2 fL (7.5-11.0); Platelet Count 260 x10^3/uL (150-450); Red Blood Count 5.26 x10^6/uL (4.1-5.4); Red Cell Distribution Width 14.8 % (11.5-14.0)
[2023-07-05 15:55] LABS: ANION GAP 13.7 MEQ/L (5-15); BILIRUBIN,TOTAL 0.9 mg/dL (0.2-1.3); Calcium 8.9 mg/dL (8.4-10.2); Creatinine 1 0.76 mg/dL (0.52-1.04); EST GLOMERULAR FILTRATION RATE 90.8 ML/MIN; Total Protein 7.6 g/dL (6.3-8.2)
[2023-07-05 15:58] LABS: Potassium 2.9 mmol/L (3.5-5.1)
[2023-07-05 16:01] LABS: White Blood Count 26.6 x10^3/uL (4.0-10.5)
[2023-07-05] MEDS: Sodium Chloride 0.9% W/ 20 mEq KCl/LITER 1,000 ML IV SCH (16:11)
[2023-07-05 16:20] LABS: INFLUENZA A NEGATIVE (NEGATIVE); INFLUENZA B NEGATIVE (NEGATIVE); RESPIRATORY SYNCTIAL VIRUS NEGATIVE (NEGATIVE); SARS-CoV-2 Xpert Express NEGATIVE (NEGATIVE)
[2023-07-05 16:23] LABS: ANISOCYTOSIS 1+; BAND 3 % (0.0-2.0); Lymphocytes 5 % (24-44); Monocyte 3 % (0.0-12.0); Neutrophils 89 % (36.0-66.0); Platelet Estimate NORMAL (NORMAL); Total Cells Counted 100; Toxic Granulation 1+
--- NOTE | 2023-07-05 16:45 | XRAY ---
Indication: Short of breath. Fever. Multiple contiguous axial images obtained through the chest using 100 cc Isovue 370 contrast. Comparison: None Left lower lobe demonstrates near-complete consolidating opacity posteriorly with tiny effusion concerning for aspiration pneumonia. Lesser inferior lingula consolidating airspace disease. Right lung clear with incidental tiny right lower lobe calcified granuloma. Heart not enlarged. Aorta is normal course and caliber. Small subcarinal calcified node. No pathologic mediastinal/hilar lymphadenopathy. Small hiatal hernia. Bony thorax intact. CT abdomen/pelvis reported separately. Impression: 1. Left lower lobe and lesser degree lingula posterior consolidating opacities with tiny effusion. Rule out aspiration pneumonia. 2. Chronic findings including small hiatal hernia and old granulomatous disease.
--- NOTE | 2023-07-05 16:49 | XRAY ---
Indication: Short of breath and fever. Abdominal pain. Multiple contiguous axial images obtained through the abdomen and pelvis using 1 cc Isovue 370 contrast. Comparison: Noncontrast exam January 21, 2023 CT chest reported separately. Noncontrasted stomach and bowel loops nonobstructed with normal appearing appendix. Again cholecystectomy. No free fluid/air. Both kidneys enhance and excrete with stable 3.8 cm right renal cyst. 1.3 cm left upper renal cyst not well seen on previous noncontrast exam. Mild fatty liver. Remaining liver, pancreas, spleen, adrenal glands, kidneys, ureters, bladder, uterus, and aorta are unremarkable. No pathologic retroperitoneal lymphadenopathy. Osseous structures intact again with minimal magenta changes throughout the spine and both hips. Impression: 1. Chronic findings include bilateral renal cysts, fatty liver, and degenerative spondylosis. 2. Remaining CT abdomen/pelvis with contrast exam continues to be negative.
[2023-07-05] MEDS ORDERED: ROCEPHIN 1 Gm-D5w 50 ml Bag** 1 G/50 ML IVPB IV STA (17:10)
[2023-07-05] MEDS ORDERED: Zithromax 500 MG/ 250 ML NaCl Premix 500 MG/250 ML IVPB IV ONE ×2 (17:11→17:53)
[2023-07-05] MEDS ORDERED: ROCEPHIN 1 Gm-D5w 50 ml Bag** 1 G/50 ML IVPB IV ONE (17:16)
[2023-07-05 17:25] LABS: Appearance Clear (Clear); Bacteria None Seen /HPF (None Seen); Bilirubin Negative (Negative); Blood Moderate (Negative); Epithelial Cells None Seen /HPF (None Seen); Glucose, Urine Negative (Negative); Ketones Negative (Negative); Leukocyte Esterase Negative (Negative); Nitrite Negative (Negative); Protein,Urine Dip 30 (Negative); Specific Gravity >=1.030 (1.005-1.030); Urobilinogen 0.2 mg/dL (0.2); WBC 0-2 /HPF (0-5)
[2023-07-05 17:26] LABS: ADD URINE CULTURE? YES (NO)
[2023-07-05] MEDS ORDERED: PHENERGAN 25 MG PO PRN (19:53)
[2023-07-05] MEDS ORDERED: NORCO 5/325 MG PO PRN (19:54)
[2023-07-05] MEDS ORDERED: Klor Con PO ONE (19:55)
--- NOTE | 2023-07-05 20:03 | PCM.HP ---
History of Present Illness - Chief Complaint Chief Complaint: LLL Pneumonia History of Present Illness: is a 57 year old female who presents with fever, cough, and a LLL pneumonia. Denies nausea, vomiting, diarrhea, sick contacts. Has pain across her abdomen and left lower side as well. Denies chest pain. - Review of Systems Constitutional: No Fever, No Chills Eyes: No Symptoms Ears, Nose, & Throat: No Symptoms Respiratory: No Cough, No Short Of Breath Cardiac: No Chest Pain, No Edema, No Syncope Abdominal/Gastrointestinal: No Abdominal Pain, No Nausea, No Vomiting, No Diarrhea Genitourinary Symptoms: No Dysuria Musculoskeletal: No Back Pain, No Neck Pain Skin: No Rash Neurological: No Dizziness, No Focal Weakness, No Sensory Changes Psychological: No Symptoms Endocrine: No Symptoms Hematologic/Lymphatic: No Symptoms Immunological/Allergic: No Symptoms Medications & Allergies Home Medications: Home Medication List Gabapentin 800 mg PO QID 01/21/17 [History Confirmed 07/05/23] Zolpidem Tartrate [Ambien] 10 mg PO HS 04/17/20 [History Confirmed 07/05/23] Venlafaxine HCl [Effexor Xr] 150 mg PO QHS 11/10/20 [History Confirmed 07/05/23] Promethazine HCl 25 mg [Phenergan 25 mg] 25 mg PO Q6H PRN 11/06/21 [History Confirmed 07/05/23] Amlodipine Besylate 5 mg [Norvasc 5 mg] 1 tab PO HS 01/22/23 [History Confirmed 07/05/23] Metoprolol Succinate 1 tab PO DAILY 01/22/23 [History Confirmed 07/05/23] Mirabegron [Myrbetriq] 1 tab PO DAILY 01/22/23 [History Confirmed 07/05/23] Cyclobenzaprine HCl [Cyclobenzaprine HCl ER] 30 mg PO DAILY 07/05/23 [History Confirmed 07/05/23] Allergies/Adverse Reactions: Allergies Allergy/AdvReac Type Severity Reaction Status Date / Time butorphanol Allergy Intermediate Hives Verified 07/05/23 14:34 codeine Allergy Intermediate Itching Verified 03/03/23 06:48 latex Allergy Mild Hives Verified 03/03/23 06:48 zolmitriptan [From Zomig] Allergy Mild HEART RACE Verified 03/03/23 06:48 ketorolac tromethamine Allergy Hives Verified 03/03/23 06:48 [From Toradol] ondansetron HCl [From Zofran] Allergy Swelling Verified 03/03/23 06:48 sumatriptan [From Imitrex] Allergy HEART RACE Verified 03/03/23 06:48 - Past Medical History Past Medical History: Yes Neurological History: Migraines, Peripheral Neuropathy, Other ENT History: No Pertinent History Cardiac History: Hypertension Respiratory History: Pneumonia Endocrine Medical History: No Pertinent History Musculoskelatal History: No Pertinent History GI Medical History: Gallbladder Disease History: No Pertinent History Pyscho-Social History: No Pertinent History Reproductive Disorders: No Pertinent History Comment: Multiple Sclerosis 2007, BONE SPURS IN NECK, Insomnia, multiple UTIs - Female History Are you now?: No - Past Surgical History Past Surgical History: Yes Neuro Surgical History: No Pertinent History Cardiac History: No Pertinent History Respiratory Surgery: No Pertinent History GI Surgical History: Cholecystectomy Genitourinary Surgical Hx: No Pertinent History Musculskeletal Surgical Hx: Other Female Surgical History: No Pertinent History Other Surgical History: rotator cuff repair right arm, right with resulting MRSA infection, port placed and removed - Social History Smoking Status: Current every day smoker How long have you smoked: 20 Exposure to second hand smoke: No Alcohol: Rarely Drug Use: none Significant Family History: cancer (M Breast Ca. Father lung ca) - Physical Exam Vital Signs: Vital Signs - 24 hr Temp Pulse Resp BP BP Pulse Ox 07/05/23 19:05 99.5 F 146 H 22 139/88 92 L 07/05/23 19:00 92 L 07/05/23 18:16 29 H 125/96 07/05/23 18:03 34 H 116/86 07/05/23 18:01 43 H 07/05/23 17:46 24 98/68 07/05/23 17:34 29 H 145/89 07/05/23 17:31 31 H 07/05/23 17:21 140 H 26 H 93 L 07/05/23 17:20 94 L 07/05/23 17:16 143 H 25 H 94/65 94 L 07/05/23 17:01 143 H 35 H 101/75 94 L 07/05/23 16:45 145 H 27 H 92 L 07/05/23 16:31 146 H 22 103/64 91 L 07/05/23 16:28 140 H 102/56 94 L 07/05/23 15:31 133 H 25 H 115/71 94 L 07/05/23 15:05 132 H 31 H 138/77 07/05/23 15:00 136 H 35 H 124/76 91 L 07/05/23 14:30 102 F 143 H 22 109/67 94 L General Appearance: no apparent distress, alert Neurologic Exam: alert, oriented x 3, cooperative, normal mood/affect, nml cerebellar function, nml station & gait, sensation nml, No motor deficits Eye Exam: PERRL/EOMI, eyes nml inspection Ears, Nose, Throat Exam: normal ENT inspection, TMs normal, pharynx normal, moist mucous membranes Neck Exam: normal inspection, non-tender, supple, full range of motion Respiratory Exam: normal breath sounds, lungs clear, No respiratory distress Cardiovascular Exam: regular rate/rhythm, normal heart sounds, normal peripheral pulses Gastrointestinal/Abdomen Exam: soft, normal bowel sounds, No tenderness, No mass Back Exam: normal inspection, normal range of motion, No CVA tenderness, No vertebral tenderness Extremity Exam: normal inspection, normal range of motion, pelvis stable Skin Exam: normal color, warm, dry, No rash Lymphatic Exam: No adenopathy Results - Labs Lab/Micro Results: Lab Results-Last 24 Hours 07/05/23 07/05/23 07/05/23 Range/Units 15:27 15:30 15:30 WBC 26.6 H* (4.0-10.5) x10^3/uL RBC 5.26 (4.1-5.4) x10^6/uL Hgb 14.2 (12.0-16.0) g/dL Hct 44.0 (35-47) % MCV 83.7 (78-100) fL MCH 27.0 (26-32) pg MCHC 32.3 (32-36) g/dL RDW 14.8 H (11.5-14.0) % Plt Count 260 (150-450) x10^3/uL MPV 11.2 H (7.5-11.0) fL Segmented Neutrophils 89 H (36.0-66.0) % Band Neutrophils 3 H (0.0-2.0) % Lymphocytes (Manual) 5 L (24-44) % Monocytes (Manual) 3 (0.0-12.0) % Toxic Granulation 1+ Platelet Estimate NORMAL (NORMAL) RBC Morphology ABNORMAL Anisocytosis 1+ Smear Path Review Pending Sodium 130 L (137-145) mmol/L Potassium 2.9 L* (3.5-5.1) mmol/L Chloride 98 (98-107) mmol/L Carbon Dioxide 21 L (22-30) mmol/L Anion Gap 13.7 (5-15) MEQ/L BUN 6 L (7-17) mg/dL Creatinine 0.76 (0.52-1.04) mg/dL Estimated GFR 90.8 ML/MIN Glucose 178 H (74-106) mg/dL Lactic Acid 3.6 H (0.4-2.0) Calcium 8.9 (8.4-10.2) mg/dL Total Bilirubin 0.90 (0.2-1.3) mg/dL AST 20 (14-36) U/L ALT 20 (0-35) U/L Alkaline Phosphatase 75 (38-126) U/L Troponin I (0.000-0.034) ng/mL Serum Total Protein 7.6 (6.3-8.2) g/dL Albumin 4.0 (3.5-5.0) g/dL Lipase 13 L (23-300) U/L Urine Color (Yellow) Urine Appearance (Clear) Urine pH (4.6-8.0) Ur Specific [place] (1.005-1.030) Urine Protein (Negative) Urine Glucose (UA) (Negative) mg/dL Urine Ketones (Negative) Urine Blood (Negative) Urine Nitrite (Negative) Urine Bilirubin (Negative) Urine Urobilinogen (0.2) mg/dL Ur Leukocyte Esterase (Negative) U Hyaline Cast (Auto) (0-2) /LPF Urine Microscopic RBC (0-5) /HPF Urine Microscopic WBC (0-5) /HPF Ur Epithelial Cells (None Seen) /HPF Urine Bacteria (None Seen) /HPF Urine Culture Reflexed (NO) Influenza Type A Ag (NEGATIVE) Influenza Type B Ag (NEGATIVE) RSV (PCR) (NEGATIVE) SARS-CoV-2 (PCR) (NEGATIVE) 07/05/23 07/05/23 07/05/23 Range/Units 15:30 15:35 16:37 WBC (4.0-10.5) x10^3/uL RBC (4.1-5.4) x10^6/uL Hgb (12.0-16.0) g/dL Hct (35-47) % MCV (78-100) fL MCH (26-32) pg MCHC (32-36) g/dL RDW (11.5-14.0) % Plt Count (150-450) x10^3/uL MPV (7.5-11.0) fL Segmented Neutrophils (36.0-66.0) % Band Neutrophils (0.0-2.0) % Lymphocytes (Manual) (24-44) % Monocytes (Manual) (0.0-12.0) % Toxic Granulation Platelet Estimate (NORMAL) RBC Morphology Anisocytosis Smear Path Review Sodium (137-145) mmol/L Potassium (3.5-5.1) mmol/L Chloride (98-107) mmol/L Carbon Dioxide (22-30) mmol/L Anion Gap (5-15) MEQ/L BUN (7-17) mg/dL Creatinine (0.52-1.04) mg/dL Estimated GFR ML/MIN Glucose (74-106) mg/dL Lactic Acid (0.4-2.0) Calcium (8.4-10.2) mg/dL Total Bilirubin (0.2-1.3) mg/dL AST (14-36) U/L ALT (0-35) U/L Alkaline Phosphatase (38-126) U/L Troponin I < 0.012 (0.000-0.034) ng/mL Serum Total Protein (6.3-8.2) g/dL Albumin (3.5-5.0) g/dL Lipase (23-300) U/L Urine Color Yellow (Yellow) Urine Appearance Clear (Clear) Urine pH 6.0 (4.6-8.0) Ur Specific [place] >=1.030 A (1.005-1.030) Urine Protein 30 (Negative) Urine Glucose (UA) Negative (Negative) mg/dL Urine Ketones Negative (Negative) Urine Blood Moderate A (Negative) Urine Nitrite Negative (Negative) Urine Bilirubin Negative (Negative) Urine Urobilinogen 0.2 (0.2) mg/dL Ur Leukocyte Esterase Negative (Negative) U Hyaline Cast (Auto) 3-5 A (0-2) /LPF Urine Microscopic RBC 11-20 A (0-5) /HPF Urine Microscopic WBC 0-2 (0-5) /HPF Ur Epithelial Cells None Seen (None Seen) /HPF Urine Bacteria None Seen (None Seen) /HPF Urine Culture Reflexed YES (NO) Influenza Type A Ag NEGATIVE (NEGATIVE) Influenza Type B Ag NEGATIVE (NEGATIVE) RSV (PCR) NEGATIVE (NEGATIVE) SARS-CoV-2 (PCR) NEGATIVE (NEGATIVE) 07/05/23 07/05/23 Range/Units 17:35 19:05 WBC (4.0-10.5) x10^3/uL RBC (4.1-5.4) x10^6/uL Hgb (12.0-16.0) g/dL Hct (35-47) % MCV (78-100) fL MCH (26-32) pg MCHC (32-36) g/dL RDW (11.5-14.0) % Plt Count (150-450) x10^3/uL MPV (7.5-11.0) fL Segmented Neutrophils (36.0-66.0) % Band Neutrophils (0.0-2.0) % Lymphocytes (Manual) (24-44) % Monocytes (Manual) (0.0-12.0) % Toxic Granulation Platelet Estimate (NORMAL) RBC Morphology Anisocytosis Smear Path Review Sodium (137-145) mmol/L Potassium (3.5-5.1) mmol/L Chloride (98-107) mmol/L Carbon Dioxide (22-30) mmol/L Anion Gap (5-15) MEQ/L BUN (7-17) mg/dL Creatinine (0.52-1.04) mg/dL Estimated GFR ML/MIN Glucose (74-106) mg/dL Lactic Acid 2.8 H (0.4-2.0) Calcium (8.4-10.2) mg/dL Total Bilirubin (0.2-1.3) mg/dL AST (14-36) U/L ALT (0-35) U/L Alkaline Phosphatase (38-126) U/L Troponin I < 0.012 (0.000-0.034) ng/mL Serum Total Protein (6.3-8.2) g/dL Albumin (3.5-5.0) g/dL Lipase (23-300) U/L Urine Color (Yellow) Urine Appearance (Clear) Urine pH (4.6-8.0) Ur Specific [place] (1.005-1.030) Urine Protein (Negative) Urine Glucose (UA) (Negative) mg/dL Urine Ketones (Negative) Urine Blood (Negative) Urine Nitrite (Negative) Urine Bilirubin (Negative) Urine Urobilinogen (0.2) mg/dL Ur Leukocyte Esterase (Negative) U Hyaline Cast (Auto) (0-2) /LPF Urine Microscopic RBC (0-5) /HPF Urine Microscopic WBC (0-5) /HPF Ur Epithelial Cells (None Seen) /HPF Urine Bacteria (None Seen) /HPF Urine Culture Reflexed (NO) Influenza Type A Ag (NEGATIVE) Influenza Type B Ag (NEGATIVE) RSV (PCR) (NEGATIVE) SARS-CoV-2 (PCR) (NEGATIVE) - Radiology Impressions Radiology Exams & Impressions: Radiology Procedures Category Date Time Status ABDOMEN AND PELVIS W CONTRAST [CT] Stat Exams 07/05/23 14:48 Completed CHEST WITH CONTRAST [CT] Stat Exams 07/05/23 14:48 Completed - Other Procedures and Tests Respiratory Therapy 07/05/23 17:21 Oxygen Nasal Cannula 2 lpm Assessment/Plan (1) Left lower lobe pneumonia Current Visit: Yes Status: Acute Assessment & Plan: 1. Ceftriaxone and Azithro started in the ED - continue 2. Fluids PRN Code(s): J18.9 - PNEUMONIA, UNSPECIFIED ORGANISM Telemedicine Encounter - Telemedicine Encounter Telemedicine Encounter: The entirety of this encounter was performed via Telemedicine"
[2023-07-05] MEDS ORDERED: NORCO 5/325 MG ONE (20:06)
[2023-07-05] MEDS: Hydromorphone 1 mg/ml Injection IV PRN (20:56)
[2023-07-05] MEDS: Neurontin PO SCH (21:46)
[2023-07-05] MEDS: Ambien 10 MG PO SCH (21:46)
[2023-07-05] MEDS: Effexor XR 75 MG PO SCH (21:46)
[2023-07-05] MEDS ORDERED: NON-FORMULARY ITEM (Venlafaxine Hcl [Effexor Xr] 150 MG Cap.Er.24h) PO SCH (22:00)
[2023-07-05] MEDS ORDERED: NON-FORMULARY ITEM (Gabapentin [Gabapentin] 800 MG Tablet) PO SCH (22:00)
[2023-07-06] MEDS: Sodium Chloride 0.9% W/ 20 mEq KCl/LITER 1,000 ML IV SCH (02:18)
[2023-07-06] MEDS: Hydromorphone 1 mg/ml Injection IV PRN ×4 (04:55→18:04)
--- NOTE | 2023-07-06 05:25 | PCM.NOTE ---
Date and Time: 07/06/23 05 Subjective Assessment: is a 57 year old female with a pmhx of migraines, peripheral neuropathy, HTN, and MS who presented to ED with complaints of fever, cough, and left lower abdominal pain. CT chest showing left lower lobe opacities and tiny effusion. CT of the abdomen/pelvis with no acute findings. Patient was septic on presentation. She was febrile at 102, tachycardic with HR at 143, WBC at 26.6, lactic at 2.8, pneumonia likely the source. In addition her potassium was noted at 2.9. Patient received a 1L fluid bolus, rocephin, and zithromax in ED. Viral respiratory panel negative. 07/06/23: Met with patient bedside. Endorses continued shortness of breath, wheezing, productive cough, but have improved. Discussed CT scan findings with pneumonia favoring aspiration. Patient states that she has MS and does have difficulty swallowing and choking on foods at times. Discussed labwork with increased WBC. Antibiotic has been changed to zosyn. Patient is requiring 3L of oxygen, she on RA at baseline. Diminished lung sounds with exp wheezing noted on auscultation. Patient has remained afebrile. Denies fever, cp, abdominal pain, REHMAN, dizziness, N/V/D. <DAVI KAHN - Last Filed: 07/06/23 09:19> Date and Time: 07/06/232157 <SALVADOR COLON - Last Filed: 07/06/23 21:58> - Review of Systems Constitutional: No Symptoms Eyes: No Symptoms Ears, Nose, & Throat: No Symptoms Respiratory: Cough, Short Of Breath, Wheezing Cardiac: No Symptoms Abdominal/Gastrointestinal: No Symptoms Genitourinary Symptoms: No Symptoms Musculoskeletal: No Symptoms Skin: Skin Lesions (multiple open wounds to face and bilateral arms) <DAVI KAHN - Last Filed: 07/06/23 09:19> Objective Exam General Appearance: no apparent distress Neurologic Exam: alert, oriented x 3, cooperative Skin Exam: normal color Eye Exam: PERRL Ears, Nose, Throat Exam: normal ENT inspection Neck Exam: normal inspection Respiratory Exam: diminished breath sounds, wheezing Cardiovascular Exam: regular rate/rhythm, normal heart sounds Gastrointestinal/Abdomen Exam: soft, normal bowel sounds Extremity Exam: other Back Exam: normal inspection Pelvic Exam: deferred Rectal Exam: deferred <CRISS,DAVIBENITO Medrano - Last Filed: 07/06/23 09:19> OBJECTIVE DATA Vital Signs: Vital Signs - 24 hr Temp Pulse Resp BP BP Pulse Ox 07/06/23 00:00 98.5 F 127 H 20 108/57 92 L 07/05/23 19:05 99.5 F 146 H 22 139/88 92 L 07/05/23 19:00 92 L 07/05/23 18:16 29 H 125/96 07/05/23 18:03 34 H 116/86 07/05/23 18:01 43 H 07/05/23 17:46 24 98/68 07/05/23 17:34 29 H 145/89 07/05/23 17:31 31 H 07/05/23 17:21 140 H 26 H 93 L 07/05/23 17:20 94 L 07/05/23 17:16 143 H 25 H 94/65 94 L 07/05/23 17:01 143 H 35 H 101/75 94 L 07/05/23 16:45 145 H 27 H 92 L 07/05/23 16:31 146 H 22 103/64 91 L 07/05/23 16:28 140 H 102/56 94 L 07/05/23 15:31 133 H 25 H 115/71 94 L 07/05/23 15:05 132 H 31 H 138/77 07/05/23 15:00 136 H 35 H 124/76 91 L 07/05/23 14:30 102 F 143 H 22 109/67 94 L Pain Assessment - Last Documented Pain Intensity 6 Pain Scale Used 0-10 Pain Scale Intake and Output: Intake & Output 07/03/23 07/04/23 07/05/23 07/06/23 11:59 11:59 11:59 11:59 Intake Total 360 Output Total 200 Balance 160 Weight 93.4 kg Lab Results: Lab Results-Last 24 Hours 07/05/23 07/05/23 07/05/23 Range/Units 15:27 15:30 15:30 WBC 26.6 H* (4.0-10.5) x10^3/uL RBC 5.26 (4.1-5.4) x10^6/uL Hgb 14.2 (12.0-16.0) g/dL Hct 44.0 (35-47) % MCV 83.7 (78-100) fL MCH 27.0 (26-32) pg MCHC 32.3 (32-36) g/dL RDW 14.8 H (11.5-14.0) % Plt Count 260 (150-450) x10^3/uL MPV 11.2 H (7.5-11.0) fL Segmented Neutrophils 89 H (36.0-66.0) % Band Neutrophils 3 H (0.0-2.0) % Lymphocytes (Manual) 5 L (24-44) % Monocytes (Manual) 3 (0.0-12.0) % Toxic Granulation 1+ Platelet Estimate NORMAL (NORMAL) RBC Morphology ABNORMAL Anisocytosis 1+ Smear Path Review Pending Sodium 130 L (137-145) mmol/L Potassium 2.9 L* (3.5-5.1) mmol/L Chloride 98 (98-107) mmol/L Carbon Dioxide 21 L (22-30) mmol/L Anion Gap 13.7 (5-15) MEQ/L BUN 6 L (7-17) mg/dL Creatinine 0.76 (0.52-1.04) mg/dL Estimated GFR 90.8 ML/MIN Glucose 178 H (74-106) mg/dL Lactic Acid 3.6 H (0.4-2.0) Calcium 8.9 (8.4-10.2) mg/dL Total Bilirubin 0.90 (0.2-1.3) mg/dL AST 20 (14-36) U/L ALT 20 (0-35) U/L Alkaline Phosphatase 75 (38-126) U/L Troponin I (0.000-0.034) ng/mL Serum Total Protein 7.6 (6.3-8.2) g/dL Albumin 4.0 (3.5-5.0) g/dL Lipase 13 L (23-300) U/L Urine Color (Yellow) Urine Appearance (Clear) Urine pH (4.6-8.0) Ur Specific [place] (1.005-1.030) Urine Protein (Negative) Urine Glucose (UA) (Negative) mg/dL Urine Ketones (Negative) Urine Blood (Negative) Urine Nitrite (Negative) Urine Bilirubin (Negative) Urine Urobilinogen (0.2) mg/dL Ur Leukocyte Esterase (Negative) U Hyaline Cast (Auto) (0-2) /LPF Urine Microscopic RBC (0-5) /HPF Urine Microscopic WBC (0-5) /HPF Ur Epithelial Cells (None Seen) /HPF Urine Bacteria (None Seen) /HPF Urine Culture Reflexed (NO) Influenza Type A Ag (NEGATIVE) Influenza Type B Ag (NEGATIVE) RSV (PCR) (NEGATIVE) SARS-CoV-2 (PCR) (NEGATIVE) 07/05/23 07/05/23 07/05/23 Range/Units 15:30 15:35 16:37 WBC (4.0-10.5) x10^3/uL RBC (4.1-5.4) x10^6/uL Hgb (12.0-16.0) g/dL Hct (35-47) % MCV (78-100) fL MCH (26-32) pg MCHC (32-36) g/dL RDW (11.5-14.0) % Plt Count (150-450) x10^3/uL MPV (7.5-11.0) fL Segmented Neutrophils (36.0-66.0) % Band Neutrophils (0.0-2.0) % Lymphocytes (Manual) (24-44) % Monocytes (Manual) (0.0-12.0) % Toxic Granulation Platelet Estimate (NORMAL) RBC Morphology Anisocytosis Smear Path Review Sodium (137-145) mmol/L Potassium (3.5-5.1) mmol/L Chloride (98-107) mmol/L Carbon Dioxide (22-30) mmol/L Anion Gap (5-15) MEQ/L BUN (7-17) mg/dL Creatinine (0.52-1.04) mg/dL Estimated GFR ML/MIN Glucose (74-106) mg/dL Lactic Acid (0.4-2.0) Calcium (8.4-10.2) mg/dL Total Bilirubin (0.2-1.3) mg/dL AST (14-36) U/L ALT (0-35) U/L Alkaline Phosphatase (38-126) U/L Troponin I < 0.012 (0.000-0.034) ng/mL Serum Total Protein (6.3-8.2) g/dL Albumin (3.5-5.0) g/dL Lipase (23-300) U/L Urine Color Yellow (Yellow) Urine Appearance Clear (Clear) Urine pH 6.0 (4.6-8.0) Ur Specific [place] >=1.030 A (1.005-1.030) Urine Protein 30 (Negative) Urine Glucose (UA) Negative (Negative) mg/dL Urine Ketones Negative (Negative) Urine Blood Moderate A (Negative) Urine Nitrite Negative (Negative) Urine Bilirubin Negative (Negative) Urine Urobilinogen 0.2 (0.2) mg/dL Ur Leukocyte Esterase Negative (Negative) U Hyaline Cast (Auto) 3-5 A (0-2) /LPF Urine Microscopic RBC 11-20 A (0-5) /HPF Urine Microscopic WBC 0-2 (0-5) /HPF Ur Epithelial Cells None Seen (None Seen) /HPF Urine Bacteria None Seen (None Seen) /HPF Urine Culture Reflexed YES (NO) Influenza Type A Ag NEGATIVE (NEGATIVE) Influenza Type B Ag NEGATIVE (NEGATIVE) RSV (PCR) NEGATIVE (NEGATIVE) SARS-CoV-2 (PCR) NEGATIVE (NEGATIVE) 07/05/23 07/05/23 07/05/23 Range/Units 17:35 19:05 23:45 WBC (4.0-10.5) x10^3/uL RBC (4.1-5.4) x10^6/uL Hgb (12.0-16.0) g/dL Hct (35-47) % MCV (78-100) fL MCH (26-32) pg MCHC (32-36) g/dL RDW (11.5-14.0) % Plt Count (150-450) x10^3/uL MPV (7.5-11.0) fL Segmented Neutrophils (36.0-66.0) % Band Neutrophils (0.0-2.0) % Lymphocytes (Manual) (24-44) % Monocytes (Manual) (0.0-12.0) % Toxic Granulation Platelet Estimate (NORMAL) RBC Morphology Anisocytosis Smear Path Review Sodium (137-145) mmol/L Potassium (3.5-5.1) mmol/L Chloride (98-107) mmol/L Carbon Dioxide (22-30) mmol/L Anion Gap (5-15) MEQ/L BUN (7-17) mg/dL Creatinine (0.52-1.04) mg/dL Estimated GFR ML/MIN Glucose (74-106) mg/dL Lactic Acid 2.8 H (0.4-2.0) Calcium (8.4-10.2) mg/dL Total Bilirubin (0.2-1.3) mg/dL AST (14-36) U/L ALT (0-35) U/L Alkaline Phosphatase (38-126) U/L Troponin I < 0.012 < 0.012 (0.000-0.034) ng/mL Serum Total Protein (6.3-8.2) g/dL Albumin (3.5-5.0) g/dL Lipase (23-300) U/L Urine Color (Yellow) Urine Appearance (Clear) Urine pH (4.6-8.0) Ur Specific [place] (1.005-1.030) Urine Protein (Negative) Urine Glucose (UA) (Negative) mg/dL Urine Ketones (Negative) Urine Blood (Negative) Urine Nitrite (Negative) Urine Bilirubin (Negative) Urine Urobilinogen (0.2) mg/dL Ur Leukocyte Esterase (Negative) U Hyaline Cast (Auto) (0-2) /LPF Urine Microscopic RBC (0-5) /HPF Urine Microscopic WBC (0-5) /HPF Ur Epithelial Cells (None Seen) /HPF Urine Bacteria (None Seen) /HPF Urine Culture Reflexed (NO) Influenza Type A Ag (NEGATIVE) Influenza Type B Ag (NEGATIVE) RSV (PCR) (NEGATIVE) SARS-CoV-2 (PCR) (NEGATIVE) Radiology Exams: Radiology Procedures Category Date Time Status ABDOMEN AND PELVIS W CONTRAST [CT] Stat Exams 07/05/23 14:48 Completed CHEST WITH CONTRAST [CT] Stat Exams 07/05/23 14:48 Completed <DAVI KAHN - Last Filed: 07/06/23 09:19> Vital Signs: Vital Signs - 24 hr Temp Pulse Resp BP Pulse Ox 07/06/23 19:51 97.8 F 107 H 27 H 100/55 07/06/23 18:34 108 H 20 96 07/06/23 16:00 97.5 F 111 H 18 159/93 93 L 07/06/23 13:09 114 H 18 87 L 07/06/23 12:00 97.6 F 66 19 119/50 93 L 07/06/23 08:00 97.9 F 116 H 16 120/71 89 L 07/06/23 07:44 120 H 18 92 L 07/06/23 07:25 92 L 07/06/23 04:00 98.7 F 122 H 18 110/72 92 L 07/06/23 00:00 98.5 F 127 H 20 108/57 92 L Pain Assessment - Last Documented Pain Intensity 4 Pain Scale Used 0-10 Pain Scale Intake and Output: Intake & Output 07/04/23 07/05/23 07/06/23 07/07/23 11:59 11:59 11:59 11:59 Intake Total 1634 840 Output Total 350 Balance 1284 840 Weight 93.4 kg Lab Results: Lab Results-Last 24 Hours 07/05/23 07/05/23 07/06/23 Range/Units 15:30 23:45 05:46 WBC (4.0-10.5) x10^3/uL RBC (4.1-5.4) x10^6/uL Hgb (12.0-16.0) g/dL Hct (35-47) % MCV (78-100) fL MCH (26-32) pg MCHC (32-36) g/dL RDW (11.5-14.0) % Plt Count (150-450) x10^3/uL MPV (7.5-11.0) fL Segmented Neutrophils (36.0-66.0) % Band Neutrophils (0.0-2.0) % Lymphocytes (Manual) (24-44) % Monocytes (Manual) (0.0-12.0) % Platelet Estimate (NORMAL) RBC Morphology Smear Path Review Sodium (137-145) mmol/L Potassium (3.5-5.1) mmol/L Chloride (98-107) mmol/L Carbon Dioxide (22-30) mmol/L Anion Gap (5-15) MEQ/L BUN (7-17) mg/dL Creatinine (0.52-1.04) mg/dL Estimated GFR ML/MIN Glucose (74-106) mg/dL Lactic Acid 1.7 (0.4-2.0) Calcium (8.4-10.2) mg/dL Total Bilirubin (0.2-1.3) mg/dL AST (14-36) U/L ALT (0-35) U/L Alkaline Phosphatase (38-126) U/L Troponin I < 0.012 (0.000-0.034) ng/mL Serum Total Protein (6.3-8.2) g/dL Albumin (3.5-5.0) g/dL 07/06/23 07/06/23 Range/Units 05:47 05:47 WBC 31.5 H* (4.0-10.5) x10^3/uL RBC 4.89 (4.1-5.4) x10^6/uL Hgb 13.1 (12.0-16.0) g/dL Hct 41.2 (35-47) % MCV 84.3 (78-100) fL MCH 26.8 (26-32) pg MCHC 31.8 L (32-36) g/dL RDW 15.4 H (11.5-14.0) % Plt Count 272 (150-450) x10^3/uL MPV 11.3 H (7.5-11.0) fL Segmented Neutrophils 92 H (36.0-66.0) % Band Neutrophils 2 (0.0-2.0) % Lymphocytes (Manual) 4 L (24-44) % Monocytes (Manual) 2 (0.0-12.0) % Platelet Estimate NORMAL (NORMAL) RBC Morphology NORMAL Smear Path Review Sodium 132 L (137-145) mmol/L Potassium 4.1 D (3.5-5.1) mmol/L Chloride 102 (98-107) mmol/L Carbon Dioxide 23 (22-30) mmol/L Anion Gap 11.8 (5-15) MEQ/L BUN 12 (7-17) mg/dL Creatinine 1.02 (0.52-1.04) mg/dL Estimated GFR 63.8 ML/MIN Glucose 117 H (74-106) mg/dL Lactic Acid (0.4-2.0) Calcium 8.2 L (8.4-10.2) mg/dL Total Bilirubin 0.60 (0.2-1.3) mg/dL AST 20 (14-36) U/L ALT 17 (0-35) U/L Alkaline Phosphatase 77 (38-126) U/L Troponin I (0.000-0.034) ng/mL Serum Total Protein 7.1 (6.3-8.2) g/dL Albumin 3.6 (3.5-5.0) g/dL Radiology Exams: Radiology Procedures Category Date Time Status ABDOMEN AND PELVIS W CONTRAST [CT] Stat Exams 07/05/23 14:48 Completed CHEST WITH CONTRAST [CT] Stat Exams 07/05/23 14:48 Completed MODIFIED BARIUM SWALLOW (RAD) [MODIFIED BARIUM SWALLOW Exams 07/06/23 11:00 Completed EXAM] Urgent PICC LINE PLACEMENT Urgent Exams 07/07/23 14:57 Stop Req Multi-Disciplinary Progress Notes: Multi-Disciplinary Progress Notes 07/06/23 14:56 Mod Barium Swallow Note by Gisselle#[id number],Nancy Modified Barium Swallow Study ST Modified Barium Swallow Study Start: 07/06/23 13:17 Freq: Status: Active Protocol: Document 07/06/23 13:18 BM (Rec: 07/06/23 14:00 BM [id number]) E-Sign 07/06/23 13:18 BM Modified Barium Swallow Reason for Assessment Primary Diagnosis J18.9 - PNEUMONIA, UNSPECIFIED ORGANISM Primary Diagnosis (cont) G35 - MULTIPLE SCLEROSIS Treatment Diagnosis #1 R13.13 - DYSPHAGIA, PHARYNGEAL PHASE Reason for Assessment PATIENT REFERRED FOR MBS STUDY PER ST RECOMMENDATIONS DUE TO CURRENT DIAGNOSIS OF LLL PNEUMONIA/ASPIRATION PNEUMONIA , MS, AND SEPSIS. PATIENT C/O DIFFICULTY SWALLOWING AT TIMES AND GETTING CHOKED. SEE MEDICAL RECORD FOR PMH Onset Date 07/05/23 Date of Evaluation/SOC 07/06/23 Pain Assessment Do you have pain on swallowing No Non-verbal signs & symptoms of pain No Modified Barium Swallow View This evaluation was completed to assess the functioning of the oral and pharyngeal phases of swallowing and to determine if the patient is aspirating or at risk for aspiration. Modified Barium Swallow View Lateral View Consistencies Assessed Barium trials included: Thin Liquid via Spoon,Thin Liquid via Cup,Thin Liquid via Straw,[place] Liquid via Spoon ,Thin Honey Liquid via spoon, Honey Liquid via Spoon,Pudding Liquid via spoon,Pureed Food, Paste on a Cookie Aspiration Risk Aspiration Observed No Amount of Aspiration Observed None Patient considered at risk of aspiration Yes during oral intake Patient is at risk for aspiration Before the swallow Severity of Aspiration Risk Mild Penetration into Laryngeal Vestibule Yes Penetration occured with Thin Liquid Reason for aspirational risk: PATIENT AT MILD RISK FOR ASPIRATION PRIOR TO THE SWALLOW DUE TO PREMATURE SPILLAGE OF THIN LIQUID BARIUM PRESENTED VIA TEASPOON, CUP, AND STRAW, WELL NECTAR THICK LIQUID BARIUM PRESENTED VIA TEASPOON. 8-Point Penetration-Aspiration Scale ([place]osen[place]) 2.Material enters the airway,remains Yes above the vocal folds and IS ejected from the airway Consistency Thin,[place] Thick Method of presentation Teaspoon,Cup,Straw Comment: PATIENT WITH TRACE AMOUNT OF LARYNGEAL VESTIBULE PENETRATION WITHOUT ASPIRATION WITH THIN LIQUID PRESENTED VIA TEASPOON, CUP, AND STRAW, WELL TEASPOON OF NECTAR THICK LIQUID BARIUM. Residue/Retention Residue Observed Valleculae Right,Valleculae Left Esophageal Function No Impairment (WFL) Other UNABLE TO FULLY ASSESS ESOPHAGEAL FUNCTION DURING THIS MBS STUDY DUE TO MOVEMENT LIMITATIONS OF EQUIPMENT UTILIZED. Assessment of Swallow Phases Oral Phase Labial Closure No Impairment (WFL) Bolus Formation Yes Bolus Control Pooling L/R No Impairment (WFL) Bolus Control under Tongue No Impairment (WFL) Bolus Control Scattered Loss No Impairment (WFL) Mastication Effectiveness No Impairment (WFL) A/P Bolus Propulsion No Impairment (WFL) A/P Lingual Propulsion Delay No Impairment (WFL) Lingual Movement No Impairment (WFL) Residue Clearing/Sensitivity No Impairment (WFL) Aspiration No Swallow Initiation Delay No Impairment (WFL) Other Oral Phase Observations PATIENT WITH FUNCTIONAL ORAL PHASE OF SWALLOW DURING THIS MBS STUDY. Pharyngeal Phase Base of Tongue Retraction No Impairment (WFL) Epiglottic Coverage No Impairment (WFL) Laryngeal Elevation No Impairment (WFL) Reduced Anterior Laryngeal Movement No Laryngeal Closure No Impairment (WFL) Vallecular Retention Clearing Minimal Impairment Pharyn. Wall Residue Clearing No Impairment (WFL) Pyriform Sinus Retention No Impairment (WFL) Penetration Yes Aspiration No Cricopharyngeal Dysfunction No Cough None Other Pharyngeal Phase Observation PATIENT WITH TRACE LARYNGEAL VESTIBULE PENETRATION WITHOUT ASPIRATION OF THIN LIQUID AND NECTAR THICK LIQUID BARIUM TRIALS. SUFFICIENTLY CLEARED WITH SWALLOW COMPLETION. NO COUGH/CHOKE DEMONSTRATED. Clinical Interpretation Clinical Interpretation PATIENT WITH MIN. PHARYNGEAL DYSPHAGIA WITHOUT ASPIRATION. Speech Therapy Teaching Record Teaching Summary Results/Recommendations Learning Preferences Discussion Barriers to Learning None Readiness for Learning Accepting Teaching Methods Discussion,Audiovisual Teaching Recipient Patient Response to Teaching Verbalize understanding ST Recommendations Diet Consistency Regular Liquid Consistency Regular Thin Follow-Up Primary Physician regarding findings/ Yes recommendations Safe Swallow Compensatory Strategies Compensatory Strategies Upright Position for all meals ,Small bites and drinks, Alternate solids/liquids Medication Instructions Per Patient Preference Rehabilitation Potential: GOOD Additional Comments: PATIENT PLEASANT AND COOPERATIVE THROUGHOUT MBS STUDY. Signatures Speech Therapist Signature MS BLANCHE, CCC/DIRECTOR OF DISTRICT OFFICE Physician Signature DR Blake DELEON, RADIOLOGIST Initialized on 07/06/23 14:56 - END OF NOTE <SALVADOR COLON - Last Filed: 07/06/23 21:58> Assessment/Plan (1) Sepsis Current Visit: Yes Status: Acute Assessment & Plan: -2/2 to pneumonia -1L fluid bolus given -Repeat lactic downtrending now wnl1.7 <2.8<3.6 -Continue IVF -Blood and urine culture pending -CT chest corresponding with pneumonia in the LLL with tiny effusion/possible aspiration pneumonia -Ceftriaxone/azithromycin started in ED, will continue Zosyn on floor due to the possibility of aspiration -WBC at 26.6 on admission, now at 31.5, will trend -Lovenox -Strict I&O (2) Abdominal pain Current Visit: Yes Status: Acute Assessment & Plan: -Abdominal/pelvis CT with no acute findings -Supportive therapies, zofran, pain meds 07/06: -Resolved Code(s): R10.9 - UNSPECIFIED ABDOMINAL PAIN (3) Left lower lobe pneumonia Current Visit: Yes Status: Acute Assessment & Plan: -CT chest corresponding with pneumonia in the LLL with tiny effusion/possible aspiration pneumonia -Ceftriaxone/azithromycin started in ED, will continue Zosyn on floor due to the possibility of aspiration -WBC at 26.6, will trend -Supplemental oxygen as needed to maintain spo2 > 92%, pt RA at baseline -RT consult -Incentive spirometer -Speech eval due to trouble swallowing/choking on food/drink Code(s): J18.9 - PNEUMONIA, UNSPECIFIED ORGANISM (4) Hypokalemia Current Visit: No Status: Acute Assessment & Plan: -Potassium 2.9 on presentation, was replenished, repeat pending, will monitor and replace as appropriate -Tele 07/06: -Resolved Code(s): E87.6 - HYPOKALEMIA (5) Hypertension Current Visit: No Status: Chronic Qualifiers: Hypertension type: essential hypertension Assessment & Plan: -Stable Code(s): I10 - ESSENTIAL (PRIMARY) HYPERTENSION <DAVI KAHN - Last Filed: 07/06/23 09:19> PHAM Encounter - PHAM Encounter Attestation PHAM Encounter Attestation: "IhavepersonallyseenandexKortney,ETHEL RICE andhavediscussed pertinent aspects of their care with Davi Kahn and agree with the history, physical exam (any modifications based on my personal exam will be noted below), assessment, and plan as outlined in original note. Please see immediately below for my summary of findings and additional assessment and plan along with any meaningful corrections/explanations to the Subjective/Objective portions of the PHAM note will be noted." My portion of the encounter took place via telemedicine. -Patient reported improvement in breathing today. Continue IV antibiotic. Speech eval to rule out aspiration. <SALVADOR COLON - Last Filed: 07/06/23 21:58>
[2023-07-06] MEDS ORDERED: TYLENOL 325 MG PO PRN (05:40)
[2023-07-06] MEDS ORDERED: Sodium Chloride 100ML MINI-BAG PLUS 100 ML IV ONE (05:44)
[2023-07-06] MEDS ORDERED: PIPERACILLIN/TAZOBACTAM IV ONE (05:44)
[2023-07-06] MEDS: PIPERACILLIN/TAZOBACTAM 3.375 GM in Sodium Chloride 100ML MINI-BAG PLUS 100 ML IV SCH ×3 (05:54→18:05)
[2023-07-06 06:04] LABS: ALBUMIN 3.6 g/dL (3.5-5.0); ANION GAP 11.8 MEQ/L (5-15); BILIRUBIN,TOTAL 0.6 mg/dL (0.2-1.3); Calcium 8.2 mg/dL (8.4-10.2); Creatinine 1 1.02 mg/dL (0.52-1.04); EST GLOMERULAR FILTRATION RATE 63.8 ML/MIN; Potassium 4.1 mmol/L (3.5-5.1); Total Protein 7.1 g/dL (6.3-8.2)
[2023-07-06 06:05] LABS: Hematocrit 41.2 % (35-47); Hemoglobin 13.1 g/dL (12.0-16.0); Mean Cell Volume 84.3 fL (78-100); Mean Corpuscular Hemoglobin 26.8 pg (26-32); Mean Corpuscular Hgb Concent. 31.8 g/dL (32-36); Mean Platelet Volume 11.3 fL (7.5-11.0); Platelet Count 272 x10^3/uL (150-450); Red Blood Count 4.89 x10^6/uL (4.1-5.4); Red Cell Distribution Width 15.4 % (11.5-14.0)
[2023-07-06 06:06] LABS: White Blood Count 31.5 x10^3/uL (4.0-10.5)
[2023-07-06 07:19] LABS: BAND 2 % (0.0-2.0); Lymphocytes 4 % (24-44); Monocyte 2 % (0.0-12.0); Neutrophils 92 % (36.0-66.0); Platelet Estimate NORMAL (NORMAL); Total Cells Counted 100
[2023-07-06] MEDS ORDERED: MEDICATION INTERVENTION MC SCH (07:30)
[2023-07-06] MEDS: DUONEB 0.5-3 MG/3 ml Neb IH SCH ×2 (07:44→13:05)
[2023-07-06] MEDS: NORVASC 5 MG PO SCH ×2 (08:04→23:02)
[2023-07-06] MEDS ORDERED: Sodium Chloride 0.9% 1000 ML 1,000 ML IV SCH (09:00)
[2023-07-06] MEDS ORDERED: ROCEPHIN 1 Gm-D5w 50 ml Bag** 1 G/50 ML IVPB IV SCH (10:00)
[2023-07-06] MEDS ORDERED: CYCLOBENZAPRINE HCL 30 MG PO SCH (10:00)
[2023-07-06] MEDS ORDERED: Zithromax 500 MG/ 250 ML NaCl Premix 500 MG/250 ML IVPB IV SCH (10:00)
[2023-07-06] MEDS: ENOXAPARIN SODIUM SQ SCH (10:19)
[2023-07-06] MEDS: solu-MEDROL 40 MG, Sterile H2O 10 ml 1 ML IV SCH ×4 (10:19→23:02)
[2023-07-06] MEDS: Toprol-Xl 25MG Tablets PO SCH (12:00)
[2023-07-06] MEDS: MYRBETRIQ PO SCH (12:00)
[2023-07-06] MEDS: Neurontin PO SCH ×4 (12:00→23:01)
--- NOTE | 2023-07-06 12:04 | XRAY ---
Indication: Trouble swallowing. Modified barium swallow study performed by the department of speech therapy with fluoroscopic assistance provided. Patient ingested multiple consistencies of liquids and solids. Full report and recommendations will be reported separately. Approximately 51 seconds fluoroscopy used.
[2023-07-06] MEDS ORDERED: Sodium Chloride 3 ML UD NEBULES IH SCH (14:00)
[2023-07-06] MEDS ORDERED: NORCO 5/325 MG PO PRN (14:58)
--- NOTE | 2023-07-06 16:28 | PCM.NOTE ---
Date and Time: 07/06/23 1607 OBJECTIVE DATA Vital Signs: Vital Signs - 24 hr Temp Pulse Resp BP BP Pulse Ox 07/06/23 13:09 114 H 18 87 L 07/06/23 12:00 97.6 F 66 19 119/50 93 L 07/06/23 08:00 97.9 F 116 H 16 120/71 89 L 07/06/23 07:44 120 H 18 92 L 07/06/23 07:25 92 L 07/06/23 04:00 98.7 F 122 H 18 110/72 92 L 07/06/23 00:00 98.5 F 127 H 20 108/57 92 L 07/05/23 19:05 99.5 F 146 H 22 139/88 92 L 07/05/23 19:00 92 L 07/05/23 18:16 29 H 125/96 07/05/23 18:03 34 H 116/86 07/05/23 18:01 43 H 07/05/23 17:46 24 98/68 07/05/23 17:34 29 H 145/89 07/05/23 17:31 31 H 07/05/23 17:21 140 H 26 H 93 L 07/05/23 17:20 94 L 07/05/23 17:16 143 H 25 H 94/65 94 L 07/05/23 17:01 143 H 35 H 101/75 94 L 07/05/23 16:45 145 H 27 H 92 L 07/05/23 16:31 146 H 22 103/64 91 L 07/05/23 16:28 140 H 102/56 94 L Pain Assessment - Last Documented Pain Intensity 8 Pain Scale Used [facility] Intake and Output: Intake & Output 07/04/23 07/05/23 07/06/23 07/07/23 06:59 06:59 06:59 06:59 Intake Total 1634 240 Output Total 350 Balance 1284 240 Weight 93.4 kg Lab Results: Lab Results-Last 24 Hours 07/05/23 07/05/23 07/05/23 Range/Units 15:30 15:30 15:35 WBC (4.0-10.5) x10^3/uL RBC (4.1-5.4) x10^6/uL Hgb (12.0-16.0) g/dL Hct (35-47) % MCV (78-100) fL MCH (26-32) pg MCHC (32-36) g/dL RDW (11.5-14.0) % Plt Count (150-450) x10^3/uL MPV (7.5-11.0) fL Segmented Neutrophils 89 H (36.0-66.0) % Band Neutrophils 3 H (0.0-2.0) % Lymphocytes (Manual) 5 L (24-44) % Monocytes (Manual) 3 (0.0-12.0) % Toxic Granulation 1+ Platelet Estimate NORMAL (NORMAL) RBC Morphology ABNORMAL Anisocytosis 1+ Smear Path Review Sodium (137-145) mmol/L Potassium (3.5-5.1) mmol/L Chloride (98-107) mmol/L Carbon Dioxide (22-30) mmol/L Anion Gap (5-15) MEQ/L BUN (7-17) mg/dL Creatinine (0.52-1.04) mg/dL Estimated GFR ML/MIN Glucose (74-106) mg/dL Lactic Acid (0.4-2.0) Calcium (8.4-10.2) mg/dL Total Bilirubin (0.2-1.3) mg/dL AST (14-36) U/L ALT (0-35) U/L Alkaline Phosphatase (38-126) U/L Troponin I < 0.012 (0.000-0.034) ng/mL Serum Total Protein (6.3-8.2) g/dL Albumin (3.5-5.0) g/dL Urine Color (Yellow) Urine Appearance (Clear) Urine pH (4.6-8.0) Ur Specific [place] (1.005-1.030) Urine Protein (Negative) Urine Glucose (UA) (Negative) mg/dL Urine Ketones (Negative) Urine Blood (Negative) Urine Nitrite (Negative) Urine Bilirubin (Negative) Urine Urobilinogen (0.2) mg/dL Ur Leukocyte Esterase (Negative) U Hyaline Cast (Auto) (0-2) /LPF Urine Microscopic RBC (0-5) /HPF Urine Microscopic WBC (0-5) /HPF Ur Epithelial Cells (None Seen) /HPF Urine Bacteria (None Seen) /HPF Urine Culture Reflexed (NO) Influenza Type A Ag NEGATIVE (NEGATIVE) Influenza Type B Ag NEGATIVE (NEGATIVE) RSV (PCR) NEGATIVE (NEGATIVE) SARS-CoV-2 (PCR) NEGATIVE (NEGATIVE) 07/05/23 07/05/23 07/05/23 Range/Units 16:37 17:35 19:05 WBC (4.0-10.5) x10^3/uL RBC (4.1-5.4) x10^6/uL Hgb (12.0-16.0) g/dL Hct (35-47) % MCV (78-100) fL MCH (26-32) pg MCHC (32-36) g/dL RDW (11.5-14.0) % Plt Count (150-450) x10^3/uL MPV (7.5-11.0) fL Segmented Neutrophils (36.0-66.0) % Band Neutrophils (0.0-2.0) % Lymphocytes (Manual) (24-44) % Monocytes (Manual) (0.0-12.0) % Toxic Granulation Platelet Estimate (NORMAL) RBC Morphology Anisocytosis Smear Path Review Sodium (137-145) mmol/L Potassium (3.5-5.1) mmol/L Chloride (98-107) mmol/L Carbon Dioxide (22-30) mmol/L Anion Gap (5-15) MEQ/L BUN (7-17) mg/dL Creatinine (0.52-1.04) mg/dL Estimated GFR ML/MIN Glucose (74-106) mg/dL Lactic Acid 2.8 H (0.4-2.0) Calcium (8.4-10.2) mg/dL Total Bilirubin (0.2-1.3) mg/dL AST (14-36) U/L ALT (0-35) U/L Alkaline Phosphatase (38-126) U/L Troponin I < 0.012 (0.000-0.034) ng/mL Serum Total Protein (6.3-8.2) g/dL Albumin (3.5-5.0) g/dL Urine Color Yellow (Yellow) Urine Appearance Clear (Clear) Urine pH 6.0 (4.6-8.0) Ur Specific [place] >=1.030 A (1.005-1.030) Urine Protein 30 (Negative) Urine Glucose (UA) Negative (Negative) mg/dL Urine Ketones Negative (Negative) Urine Blood Moderate A (Negative) Urine Nitrite Negative (Negative) Urine Bilirubin Negative (Negative) Urine Urobilinogen 0.2 (0.2) mg/dL Ur Leukocyte Esterase Negative (Negative) U Hyaline Cast (Auto) 3-5 A (0-2) /LPF Urine Microscopic RBC 11-20 A (0-5) /HPF Urine Microscopic WBC 0-2 (0-5) /HPF Ur Epithelial Cells None Seen (None Seen) /HPF Urine Bacteria None Seen (None Seen) /HPF Urine Culture Reflexed YES (NO) Influenza Type A Ag (NEGATIVE) Influenza Type B Ag (NEGATIVE) RSV (PCR) (NEGATIVE) SARS-CoV-2 (PCR) (NEGATIVE) 07/05/23 07/06/23 07/06/23 Range/Units 23:45 05:46 05:47 WBC 31.5 H* (4.0-10.5) x10^3/uL RBC 4.89 (4.1-5.4) x10^6/uL Hgb 13.1 (12.0-16.0) g/dL Hct 41.2 (35-47) % MCV 84.3 (78-100) fL MCH 26.8 (26-32) pg MCHC 31.8 L (32-36) g/dL RDW 15.4 H (11.5-14.0) % Plt Count 272 (150-450) x10^3/uL MPV 11.3 H (7.5-11.0) fL Segmented Neutrophils 92 H (36.0-66.0) % Band Neutrophils 2 (0.0-2.0) % Lymphocytes (Manual) 4 L (24-44) % Monocytes (Manual) 2 (0.0-12.0) % Toxic Granulation Platelet Estimate NORMAL (NORMAL) RBC Morphology NORMAL Anisocytosis Smear Path Review Sodium (137-145) mmol/L Potassium (3.5-5.1) mmol/L Chloride (98-107) mmol/L Carbon Dioxide (22-30) mmol/L Anion Gap (5-15) MEQ/L BUN (7-17) mg/dL Creatinine (0.52-1.04) mg/dL Estimated GFR ML/MIN Glucose (74-106) mg/dL Lactic Acid 1.7 (0.4-2.0) Calcium (8.4-10.2) mg/dL Total Bilirubin (0.2-1.3) mg/dL AST (14-36) U/L ALT (0-35) U/L Alkaline Phosphatase (38-126) U/L Troponin I < 0.012 (0.000-0.034) ng/mL Serum Total Protein (6.3-8.2) g/dL Albumin (3.5-5.0) g/dL Urine Color (Yellow) Urine Appearance (Clear) Urine pH (4.6-8.0) Ur Specific [place] (1.005-1.030) Urine Protein (Negative) Urine Glucose (UA) (Negative) mg/dL Urine Ketones (Negative) Urine Blood (Negative) Urine Nitrite (Negative) Urine Bilirubin (Negative) Urine Urobilinogen (0.2) mg/dL Ur Leukocyte Esterase (Negative) U Hyaline Cast (Auto) (0-2) /LPF Urine Microscopic RBC (0-5) /HPF Urine Microscopic WBC (0-5) /HPF Ur Epithelial Cells (None Seen) /HPF Urine Bacteria (None Seen) /HPF Urine Culture Reflexed (NO) Influenza Type A Ag (NEGATIVE) Influenza Type B Ag (NEGATIVE) RSV (PCR) (NEGATIVE) SARS-CoV-2 (PCR) (NEGATIVE) 07/06/23 Range/Units 05:47 WBC (4.0-10.5) x10^3/uL RBC (4.1-5.4) x10^6/uL Hgb (12.0-16.0) g/dL Hct (35-47) % MCV (78-100) fL MCH (26-32) pg MCHC (32-36) g/dL RDW (11.5-14.0) % Plt Count (150-450) x10^3/uL MPV (7.5-11.0) fL Segmented Neutrophils (36.0-66.0) % Band Neutrophils (0.0-2.0) % Lymphocytes (Manual) (24-44) % Monocytes (Manual) (0.0-12.0) % Toxic Granulation Platelet Estimate (NORMAL) RBC Morphology Anisocytosis Smear Path Review Sodium 132 L (137-145) mmol/L Potassium 4.1 D (3.5-5.1) mmol/L Chloride 102 (98-107) mmol/L Carbon Dioxide 23 (22-30) mmol/L Anion Gap 11.8 (5-15) MEQ/L BUN 12 (7-17) mg/dL Creatinine 1.02 (0.52-1.04) mg/dL Estimated GFR 63.8 ML/MIN Glucose 117 H (74-106) mg/dL Lactic Acid (0.4-2.0) Calcium 8.2 L (8.4-10.2) mg/dL Total Bilirubin 0.60 (0.2-1.3) mg/dL AST 20 (14-36) U/L ALT 17 (0-35) U/L Alkaline Phosphatase 77 (38-126) U/L Troponin I (0.000-0.034) ng/mL Serum Total Protein 7.1 (6.3-8.2) g/dL Albumin 3.6 (3.5-5.0) g/dL Urine Color (Yellow) Urine Appearance (Clear) Urine pH (4.6-8.0) Ur Specific [place] (1.005-1.030) Urine Protein (Negative) Urine Glucose (UA) (Negative) mg/dL Urine Ketones (Negative) Urine Blood (Negative) Urine Nitrite (Negative) Urine Bilirubin (Negative) Urine Urobilinogen (0.2) mg/dL Ur Leukocyte Esterase (Negative) U Hyaline Cast (Auto) (0-2) /LPF Urine Microscopic RBC (0-5) /HPF Urine Microscopic WBC (0-5) /HPF Ur Epithelial Cells (None Seen) /HPF Urine Bacteria (None Seen) /HPF Urine Culture Reflexed (NO) Influenza Type A Ag (NEGATIVE) Influenza Type B Ag (NEGATIVE) RSV (PCR) (NEGATIVE) SARS-CoV-2 (PCR) (NEGATIVE) Radiology Exams: Radiology Procedures Category Date Time Status ABDOMEN AND PELVIS W CONTRAST [CT] Stat Exams 07/05/23 14:48 Completed CHEST WITH CONTRAST [CT] Stat Exams 07/05/23 14:48 Completed MODIFIED BARIUM SWALLOW (RAD) [MODIFIED BARIUM SWALLOW Exams 07/06/23 11:00 Completed EXAM] Urgent PICC LINE PLACEMENT Urgent Exams 07/07/23 14:57 Ordered Multi-Disciplinary Progress Notes: Multi-Disciplinary Progress Notes 07/06/23 14:56 Mod Barium Swallow Note by Gisselle#[id number],Nancy Modified Barium Swallow Study ST Modified Barium Swallow Study Start: 07/06/23 13:17 Freq: Status: Active Protocol: Document 07/06/23 13:18 BM (Rec: 07/06/23 14:00 BM [id number]) E-Sign 07/06/23 13:18 BM Modified Barium Swallow Reason for Assessment Primary Diagnosis J18.9 - PNEUMONIA, UNSPECIFIED ORGANISM Primary Diagnosis (cont) G35 - MULTIPLE SCLEROSIS Treatment Diagnosis #1 R13.13 - DYSPHAGIA, PHARYNGEAL PHASE Reason for Assessment PATIENT REFERRED FOR MBS STUDY PER ST RECOMMENDATIONS DUE TO CURRENT DIAGNOSIS OF LLL PNEUMONIA/ASPIRATION PNEUMONIA , MS, AND SEPSIS. PATIENT C/O DIFFICULTY SWALLOWING AT TIMES AND GETTING CHOKED. SEE MEDICAL RECORD FOR PMH Onset Date 07/05/23 Date of Evaluation/SOC 07/06/23 Pain Assessment Do you have pain on swallowing No Non-verbal signs & symptoms of pain No Modified Barium Swallow View This evaluation was completed to assess the functioning of the oral and pharyngeal phases of swallowing and to determine if the patient is aspirating or at risk for aspiration. Modified Barium Swallow View Lateral View Consistencies Assessed Barium trials included: Thin Liquid via Spoon,Thin Liquid via Cup,Thin Liquid via Straw,[place] Liquid via Spoon ,Thin Honey Liquid via spoon, Honey Liquid via Spoon,Pudding Liquid via spoon,Pureed Food, Paste on a Cookie Aspiration Risk Aspiration Observed No Amount of Aspiration Observed None Patient considered at risk of aspiration Yes during oral intake Patient is at risk for aspiration Before the swallow Severity of Aspiration Risk Mild Penetration into Laryngeal Vestibule Yes Penetration occured with Thin Liquid Reason for aspirational risk: PATIENT AT MILD RISK FOR ASPIRATION PRIOR TO THE SWALLOW DUE TO PREMATURE SPILLAGE OF THIN LIQUID BARIUM PRESENTED VIA TEASPOON, CUP, AND STRAW, WELL NECTAR THICK LIQUID BARIUM PRESENTED VIA TEASPOON. 8-Point Penetration-Aspiration Scale ([place]) 2.Material enters the airway,remains Yes above the vocal folds and IS ejected from the airway Consistency Thin,[place] Thick Method of presentation Teaspoon,Cup,Straw Comment: PATIENT WITH TRACE AMOUNT OF LARYNGEAL VESTIBULE PENETRATION WITHOUT ASPIRATION WITH THIN LIQUID PRESENTED VIA TEASPOON, CUP, AND STRAW, WELL TEASPOON OF NECTAR THICK LIQUID BARIUM. Residue/Retention Residue Observed Valleculae Right,Valleculae Left Esophageal Function No Impairment (WFL) Other UNABLE TO FULLY ASSESS ESOPHAGEAL FUNCTION DURING THIS MBS STUDY DUE TO MOVEMENT LIMITATIONS OF EQUIPMENT UTILIZED. Assessment of Swallow Phases Oral Phase Labial Closure No Impairment (WFL) Bolus Formation Yes Bolus Control Pooling L/R No Impairment (WFL) Bolus Control under Tongue No Impairment (WFL) Bolus Control Scattered Loss No Impairment (WFL) Mastication Effectiveness No Impairment (WFL) A/P Bolus Propulsion No Impairment (WFL) A/P Lingual Propulsion Delay No Impairment (WFL) Lingual Movement No Impairment (WFL) Residue Clearing/Sensitivity No Impairment (WFL) Aspiration No Swallow Initiation Delay No Impairment (WFL) Other Oral Phase Observations PATIENT WITH FUNCTIONAL ORAL PHASE OF SWALLOW DURING THIS MBS STUDY. Pharyngeal Phase Base of Tongue Retraction No Impairment (WFL) Epiglottic Coverage No Impairment (WFL) Laryngeal Elevation No Impairment (WFL) Reduced Anterior Laryngeal Movement No Laryngeal Closure No Impairment (WFL) Vallecular Retention Clearing Minimal Impairment Pharyn. Wall Residue Clearing No Impairment (WFL) Pyriform Sinus Retention No Impairment (WFL) Penetration Yes Aspiration No Cricopharyngeal Dysfunction No Cough None Other Pharyngeal Phase Observation PATIENT WITH TRACE LARYNGEAL VESTIBULE PENETRATION WITHOUT ASPIRATION OF THIN LIQUID AND NECTAR THICK LIQUID BARIUM TRIALS. SUFFICIENTLY CLEARED WITH SWALLOW COMPLETION. NO COUGH/CHOKE DEMONSTRATED. Clinical Interpretation Clinical Interpretation PATIENT WITH MIN. PHARYNGEAL DYSPHAGIA WITHOUT ASPIRATION. Speech Therapy Teaching Record Teaching Summary Results/Recommendations Learning Preferences Discussion Barriers to Learning None Readiness for Learning Accepting Teaching Methods Discussion,Audiovisual Teaching Recipient Patient Response to Teaching Verbalize understanding ST Recommendations Diet Consistency Regular Liquid Consistency Regular Thin Follow-Up Primary Physician regarding findings/ Yes recommendations Safe Swallow Compensatory Strategies Compensatory Strategies Upright Position for all meals ,Small bites and drinks, Alternate solids/liquids Medication Instructions Per Patient Preference Rehabilitation Potential: GOOD Additional Comments: PATIENT PLEASANT AND COOPERATIVE THROUGHOUT MBS STUDY. Signatures Speech Therapist Signature BLANCHE, MS, CCC/AIR [place] Physician Signature DR Blake DELEON, RADIOLOGIST Initialized on 07/06/23 14:56 - END OF NOTE Telemedicine Encounter - Telemedicine Encounter Telemedicine Encounter: The entirety of this encounter was performed via Telemedicine"
[2023-07-06] MEDS ORDERED: Xylocaine-Mpf 2% 5 Ml Vial ONE (17:03)
[2023-07-06] MEDS ORDERED: Sodium Chloride 3 ML UD NEBULES IH ONE (18:13)
[2023-07-06] MEDS: Xopenex 1.25 MG/0.5 ML UD NEBULE IH SCH (18:28)
[2023-07-06] MEDS: Sodium Chloride 3 ML UD NEBULES IH SCH (18:28)
[2023-07-06] MEDS: Effexor XR 75 MG PO SCH (23:01)
[2023-07-06] MEDS: Ambien 10 MG PO SCH (23:01)
[2023-07-07] MEDS: PIPERACILLIN/TAZOBACTAM 3.375 GM in Sodium Chloride 100ML MINI-BAG PLUS 100 ML IV SCH ×4 (00:38→18:13)
[2023-07-07] MEDS: Hydromorphone 1 mg/ml Injection IV PRN (00:59)
[2023-07-07] MEDS: Sodium Chloride 3 ML UD NEBULES IH SCH ×2 (01:01→15:17)
[2023-07-07] MEDS: Xopenex 1.25 MG/0.5 ML UD NEBULE IH SCH ×2 (01:01→07:26)
[2023-07-07 05:06] LABS: ALBUMIN 3.6 g/dL (3.5-5.0); ANION GAP 13.6 MEQ/L (5-15); BILIRUBIN,TOTAL 0.4 mg/dL (0.2-1.3); Calcium 8.5 mg/dL (8.4-10.2); Creatinine 1 0.83 mg/dL (0.52-1.04); EST GLOMERULAR FILTRATION RATE 81.7 ML/MIN; Potassium 3.8 mmol/L (3.5-5.1); Total Protein 7.1 g/dL (6.3-8.2)
--- NOTE | 2023-07-07 05:53 | PCM.NOTE ---
Date and Time: 07/07/23 2998 Subjective Assessment: is a 57 year old female with a pmhx of migraines, peripheral neuropathy, HTN, and MS who presented to ED with complaints of fever, cough, and left lower abdominal pain. CT chest showing left lower lobe opacities and tiny effusion. CT of the abdomen/pelvis with no acute findings. Patient was septic on presentation. She was febrile at 102, tachycardic with HR at 143, WBC at 26.6, lactic at 2.8, pneumonia likely the source. In addition her potassium was noted at 2.9. Patient received a 1L fluid bolus, rocephin, and zithromax in ED. Viral respiratory panel negative. 07/06/23: Met with patient bedside. Endorses continued shortness of breath, wheezing, productive cough, but have improved. Discussed CT scan findings with pneumonia favoring aspiration. Patient states that she has MS and does have difficulty swallowing and choking on foods at times. Discussed labwork with increased WBC. Antibiotic has been changed to zosyn. Patient is requiring 3L of oxygen, she on RA at baseline. Diminished lung sounds with exp wheezing noted on auscultation. Patient has remained afebrile. Denies fever, cp, abdominal pain, REHMAN, dizziness, N/V/D. 07/07/23: Patient up in chair. RN reports of confusion overnight. Noted both ambien/diluadid may have contributed to this. Patient A&O x 3 during this morning's interview. Will d/c diluadid as patient states her abdominal pain has improved. Endorses shortness of breath and cough have improved. Still requiring oxygen, will try to wean. Lung sounds diminished with exp wheezing at bases. Discussed lab findings with noted improvement to WBC 21.6<31.5. Will continue abxs/steroid, try to wean oxygen. Denies fever,cp, abdominal pain, REHMAN, dizziness, N/V/D. <DAVI KAHN - Last Filed: 07/07/23 10:19> Date and Time: 07/07/232133 <SALVADOR COLON - Last Filed: 07/07/23 21:35> - Review of Systems Constitutional: No Symptoms Eyes: No Symptoms Ears, Nose, & Throat: No Symptoms Respiratory: Cough, Short Of Breath, Wheezing Cardiac: No Symptoms Abdominal/Gastrointestinal: No Symptoms Genitourinary Symptoms: No Symptoms Musculoskeletal: No Symptoms Neurological: No Symptoms Psychological: No Symptoms Endocrine: No Symptoms Hematologic/Lymphatic: No Symptoms Immunological/Allergic: No Symptoms <DAVI KAHN - Last Filed: 07/07/23 10:19> Objective Exam General Appearance: no apparent distress Neurologic Exam: alert, oriented x 3, cooperative Eye Exam: PERRL Ears, Nose, Throat Exam: normal ENT inspection Neck Exam: normal inspection Respiratory Exam: diminished breath sounds, wheezing Cardiovascular Exam: regular rate/rhythm, normal heart sounds Gastrointestinal/Abdomen Exam: soft Extremity Exam: normal inspection Back Exam: normal inspection Pelvic Exam: deferred Rectal Exam: deferred <DAVI KAHN - Last Filed: 07/07/23 10:19> OBJECTIVE DATA Vital Signs: Vital Signs - 24 hr Temp Pulse Resp BP Pulse Ox 07/07/23 04:00 97.9 F 101 H 15 97/56 93 L 07/07/23 00:50 115 H 22 94 L 07/07/23 00:00 97.9 F 106 H 19 117/55 93 L 07/06/23 19:51 97.8 F 107 H 27 H 100/55 07/06/23 18:34 108 H 20 96 07/06/23 16:00 97.5 F 111 H 18 159/93 93 L 07/06/23 13:09 114 H 18 87 L 07/06/23 12:00 97.6 F 66 19 119/50 93 L 07/06/23 08:00 97.9 F 116 H 16 120/71 89 L 07/06/23 07:44 120 H 18 92 L 07/06/23 07:25 92 L Pain Assessment - Last Documented Pain Intensity 4 Pain Scale Used FLACC Intake and Output: Intake & Output 07/04/23 07/05/23 07/06/23 07/07/23 11:59 11:59 11:59 11:59 Intake Total 1634 1900 Output Total 350 900 Balance 1284 1000 Weight 93.4 kg Lab Results: Lab Results-Last 24 Hours 07/05/23 07/06/23 07/06/23 Range/Units 15:30 05:47 05:47 WBC 31.5 H* (4.0-10.5) x10^3/uL RBC 4.89 (4.1-5.4) x10^6/uL Hgb 13.1 (12.0-16.0) g/dL Hct 41.2 (35-47) % MCV 84.3 (78-100) fL MCH 26.8 (26-32) pg MCHC 31.8 L (32-36) g/dL RDW 15.4 H (11.5-14.0) % Plt Count 272 (150-450) x10^3/uL MPV 11.3 H (7.5-11.0) fL Segmented Neutrophils 92 H (36.0-66.0) % Band Neutrophils 2 (0.0-2.0) % Lymphocytes (Manual) 4 L (24-44) % Monocytes (Manual) 2 (0.0-12.0) % Platelet Estimate NORMAL (NORMAL) RBC Morphology NORMAL Smear Path Review Sodium 132 L (137-145) mmol/L Potassium 4.1 D (3.5-5.1) mmol/L Chloride 102 (98-107) mmol/L Carbon Dioxide 23 (22-30) mmol/L Anion Gap 11.8 (5-15) MEQ/L BUN 12 (7-17) mg/dL Creatinine 1.02 (0.52-1.04) mg/dL Estimated GFR 63.8 ML/MIN Glucose 117 H (74-106) mg/dL Calcium 8.2 L (8.4-10.2) mg/dL Total Bilirubin 0.60 (0.2-1.3) mg/dL AST 20 (14-36) U/L ALT 17 (0-35) U/L Alkaline Phosphatase 77 (38-126) U/L Serum Total Protein 7.1 (6.3-8.2) g/dL Albumin 3.6 (3.5-5.0) g/dL 07/07/23 Range/Units 04:26 WBC (4.0-10.5) x10^3/uL RBC (4.1-5.4) x10^6/uL Hgb (12.0-16.0) g/dL Hct (35-47) % MCV (78-100) fL MCH (26-32) pg MCHC (32-36) g/dL RDW (11.5-14.0) % Plt Count (150-450) x10^3/uL MPV (7.5-11.0) fL Segmented Neutrophils (36.0-66.0) % Band Neutrophils (0.0-2.0) % Lymphocytes (Manual) (24-44) % Monocytes (Manual) (0.0-12.0) % Platelet Estimate (NORMAL) RBC Morphology Smear Path Review Sodium 132 L (137-145) mmol/L Potassium 3.8 (3.5-5.1) mmol/L Chloride 100 (98-107) mmol/L Carbon Dioxide 23 (22-30) mmol/L Anion Gap 13.6 (5-15) MEQ/L BUN 15 (7-17) mg/dL Creatinine 0.83 (0.52-1.04) mg/dL Estimated GFR 81.7 ML/MIN Glucose 150 H (74-106) mg/dL Calcium 8.5 (8.4-10.2) mg/dL Total Bilirubin 0.40 (0.2-1.3) mg/dL AST 25 (14-36) U/L ALT 17 (0-35) U/L Alkaline Phosphatase 76 (38-126) U/L Serum Total Protein 7.1 (6.3-8.2) g/dL Albumin 3.6 (3.5-5.0) g/dL Radiology Exams: Radiology Procedures Category Date Time Status ABDOMEN AND PELVIS W CONTRAST [CT] Stat Exams 07/05/23 14:48 Completed CHEST WITH CONTRAST [CT] Stat Exams 07/05/23 14:48 Completed MODIFIED BARIUM SWALLOW (RAD) [MODIFIED BARIUM SWALLOW Exams 07/06/23 11:00 Completed EXAM] Urgent Multi-Disciplinary Progress Notes: Multi-Disciplinary Progress Notes 07/06/23 14:56 Mod Barium Swallow Note by Gisselle#[id number],Nancy Modified Barium Swallow Study ST Modified Barium Swallow Study Start: 07/06/23 13:17 Freq: Status: Active Protocol: Document 07/06/23 13:18 BM (Rec: 07/06/23 14:00 BM [id number]) E-Sign 07/06/23 13:18 BM Modified Barium Swallow Reason for Assessment Primary Diagnosis J18.9 - PNEUMONIA, UNSPECIFIED ORGANISM Primary Diagnosis (cont) G35 - MULTIPLE SCLEROSIS Treatment Diagnosis #1 R13.13 - DYSPHAGIA, PHARYNGEAL PHASE Reason for Assessment PATIENT REFERRED FOR MBS STUDY PER ST RECOMMENDATIONS DUE TO CURRENT DIAGNOSIS OF LLL PNEUMONIA/ASPIRATION PNEUMONIA , MS, AND SEPSIS. PATIENT C/O DIFFICULTY SWALLOWING AT TIMES AND GETTING CHOKED. SEE MEDICAL RECORD FOR PMH Onset Date 07/05/23 Date of Evaluation/SOC 07/06/23 Pain Assessment Do you have pain on swallowing No Non-verbal signs & symptoms of pain No Modified Barium Swallow View This evaluation was completed to assess the functioning of the oral and pharyngeal phases of swallowing and to determine if the patient is aspirating or at risk for aspiration. Modified Barium Swallow View Lateral View Consistencies Assessed Barium trials included: Thin Liquid via Spoon,Thin Liquid via Cup,Thin Liquid via Straw,[place] Liquid via Spoon ,Thin Honey Liquid via spoon, Honey Liquid via Spoon,Pudding Liquid via spoon,Pureed Food, Paste on a Cookie Aspiration Risk Aspiration Observed No Amount of Aspiration Observed None Patient considered at risk of aspiration Yes during oral intake Patient is at risk for aspiration Before the swallow Severity of Aspiration Risk Mild Penetration into Laryngeal Vestibule Yes Penetration occured with Thin Liquid Reason for aspirational risk: PATIENT AT MILD RISK FOR ASPIRATION PRIOR TO THE SWALLOW DUE TO PREMATURE SPILLAGE OF THIN LIQUID BARIUM PRESENTED VIA TEASPOON, CUP, AND STRAW, WELL NECTAR THICK LIQUID BARIUM PRESENTED VIA TEASPOON. 8-Point Penetration-Aspiration Scale (Rosenbek) 2.Material enters the airway,remains Yes above the vocal folds and IS ejected from the airway Consistency Thin,[place] Thick Method of presentation Teaspoon,Cup,Straw Comment: PATIENT WITH TRACE AMOUNT OF LARYNGEAL VESTIBULE PENETRATION WITHOUT ASPIRATION WITH THIN LIQUID PRESENTED VIA TEASPOON, CUP, AND STRAW, WELL TEASPOON OF NECTAR THICK LIQUID BARIUM. Residue/Retention Residue Observed Valleculae Right,Valleculae Left Esophageal Function No Impairment (WFL) Other UNABLE TO FULLY ASSESS ESOPHAGEAL FUNCTION DURING THIS MBS STUDY DUE TO MOVEMENT LIMITATIONS OF EQUIPMENT UTILIZED. Assessment of Swallow Phases Oral Phase Labial Closure No Impairment (WFL) Bolus Formation Yes Bolus Control Pooling L/R No Impairment (WFL) Bolus Control under Tongue No Impairment (WFL) Bolus Control Scattered Loss No Impairment (WFL) Mastication Effectiveness No Impairment (WFL) A/P Bolus Propulsion No Impairment (WFL) A/P Lingual Propulsion Delay No Impairment (WFL) Lingual Movement No Impairment (WFL) Residue Clearing/Sensitivity No Impairment (WFL) Aspiration No Swallow Initiation Delay No Impairment (WFL) Other Oral Phase Observations PATIENT WITH FUNCTIONAL ORAL PHASE OF SWALLOW DURING THIS MBS STUDY. Pharyngeal Phase Base of Tongue Retraction No Impairment (WFL) Epiglottic Coverage No Impairment (WFL) Laryngeal Elevation No Impairment (WFL) Reduced Anterior Laryngeal Movement No Laryngeal Closure No Impairment (WFL) Vallecular Retention Clearing Minimal Impairment Pharyn. Wall Residue Clearing No Impairment (WFL) Pyriform Sinus Retention No Impairment (WFL) Penetration Yes Aspiration No Cricopharyngeal Dysfunction No Cough None Other Pharyngeal Phase Observation PATIENT WITH TRACE LARYNGEAL VESTIBULE PENETRATION WITHOUT ASPIRATION OF THIN LIQUID AND NECTAR THICK LIQUID BARIUM TRIALS. SUFFICIENTLY CLEARED WITH SWALLOW COMPLETION. NO COUGH/CHOKE DEMONSTRATED. Clinical Interpretation Clinical Interpretation PATIENT WITH MIN. PHARYNGEAL DYSPHAGIA WITHOUT ASPIRATION. Speech Therapy Teaching Record Teaching Summary Results/Recommendations Learning Preferences Discussion Barriers to Learning None Readiness for Learning Accepting Teaching Methods Discussion,Audiovisual Teaching Recipient Patient Response to Teaching Verbalize understanding ST Recommendations Diet Consistency Regular Liquid Consistency Regular Thin Follow-Up Primary Physician regarding findings/ Yes recommendations Safe Swallow Compensatory Strategies Compensatory Strategies Upright Position for all meals ,Small bites and drinks, Alternate solids/liquids Medication Instructions Per Patient Preference Rehabilitation Potential: GOOD Additional Comments: PATIENT PLEASANT AND COOPERATIVE THROUGHOUT MBS STUDY. Signatures Speech Therapist Signature MS BLANCHE, CCC/SEWING MACHINE OPERATOR PAPER BAGS Physician Signature DR Blake DELEON, RADIOLOGIST Initialized on 07/06/23 14:56 - END OF NOTE <DAVI KAHN - Last Filed: 07/07/23 10:19> Vital Signs: Vital Signs - 24 hr Temp Pulse Resp BP Pulse Ox 07/07/23 20:00 97.7 F 103 H 23 95/59 99 07/07/23 18:51 102 H 20 90 L 07/07/23 16:00 97.7 F 98 H 16 127/67 95 07/07/23 11:55 97.6 F 102 H 16 97/46 88 L 07/07/23 08:51 103 H 14 93 L 07/07/23 06:48 97.7 F 103 H 16 110/87 88 L 07/07/23 04:00 97.9 F 101 H 15 97/56 93 L 07/07/23 00:50 115 H 22 94 L 07/07/23 00:00 97.9 F 106 H 19 117/55 93 L Pain Assessment - Last Documented Pain Intensity 5 Pain Scale Used 0-10 Pain Scale Intake and Output: Intake & Output 07/05/23 07/06/23 07/07/23 07/08/23 11:59 11:59 11:59 11:59 Intake Total 1634 2380 908 Output Total 350 900 400 Balance 1284 1480 508 Weight 93.4 kg Lab Results: Lab Results-Last 24 Hours 07/07/23 07/07/23 07/07/23 Range/Units 04:26 04:26 14:49 WBC 21.6 H (4.0-10.5) x10^3/uL RBC 4.25 (4.1-5.4) x10^6/uL Hgb 11.5 L (12.0-16.0) g/dL Hct 36.5 (35-47) % MCV 85.9 (78-100) fL MCH 27.1 (26-32) pg MCHC 31.5 L (32-36) g/dL RDW 15.3 H (11.5-14.0) % Plt Count 229 (150-450) x10^3/uL MPV 11.4 H (7.5-11.0) fL Gran % 87.5 H (36.0-66.0) % Immature Gran % (Auto) 2.4 H (0.00-0.4) % Nucleat RBC Rel Count 0.0 (0.00-0.1) % Eos # (Auto) 0 (0-0.5) x10^3/uL Immature Gran # (Auto) 0.52 H (0.00-0.03) x10^3u/L Absolute Lymphs (auto) 1.00 (1.0-4.6) x10^3/uL Absolute Monos (auto) 1.14 (0.0-1.3) x10^3/uL Absolute Nucleated RBC 0.00 (0.00-0.01) x10^3u/L Lymphocytes % 4.6 L (24.0-44.0) % Monocytes % 5.3 (0.0-12.0) % Eosinophils % 0.0 (0.00-5.0) % Basophils % 0.2 (0.0-0.4) % Absolute Granulocytes 18.93 H (1.4-6.9) x10^3/uL Basophils # 0.04 (0-0.4) x10^3/uL Puncture Site rt rad pCO2 43 (35-45) mmHg pO2 78 (75-100) mmHg Base Excess 2.3 H (-2.0-2.0) O2 Saturation 95.0 (94-100) g/dF ABG pH 7.41 (7.35-7.45) ABG HCO3 27.3 (22-28) ABG O2 Sat (Measured) 97.0 (95-100) % Rico Test yes A-a Gradient 68 a/A Ratio 0.53 Hemoglobin 11.8 Carboxyhemoglobin 0.9 (0.0-6.9) % THgb Methemoglobin 1.2 L (1.4-1.5) % Temperature 37.0 C POC O2 Flow Rate 28 % Sodium 132 L (137-145) mmol/L Potassium 3.8 4.0 (3.5-5.1) mmol/L Chloride 100 (98-107) mmol/L Carbon Dioxide 23 (22-30) mmol/L Anion Gap 13.6 (5-15) MEQ/L BUN 15 (7-17) mg/dL Creatinine 0.83 (0.52-1.04) mg/dL Estimated GFR 81.7 ML/MIN Glucose 150 H (74-106) mg/dL Calcium 8.5 (8.4-10.2) mg/dL Total Bilirubin 0.40 (0.2-1.3) mg/dL AST 25 (14-36) U/L ALT 17 (0-35) U/L Alkaline Phosphatase 76 (38-126) U/L Ammonia (9-30) umol/L Serum Total Protein 7.1 (6.3-8.2) g/dL Albumin 3.6 (3.5-5.0) g/dL 07/07/23 Range/Units 17:40 WBC (4.0-10.5) x10^3/uL RBC (4.1-5.4) x10^6/uL Hgb (12.0-16.0) g/dL Hct (35-47) % MCV (78-100) fL MCH (26-32) pg MCHC (32-36) g/dL RDW (11.5-14.0) % Plt Count (150-450) x10^3/uL MPV (7.5-11.0) fL Gran % (36.0-66.0) % Immature Gran % (Auto) (0.00-0.4) % Nucleat RBC Rel Count (0.00-0.1) % Eos # (Auto) (0-0.5) x10^3/uL Immature Gran # (Auto) (0.00-0.03) x10^3u/L Absolute Lymphs (auto) (1.0-4.6) x10^3/uL Absolute Monos (auto) (0.0-1.3) x10^3/uL Absolute Nucleated RBC (0.00-0.01) x10^3u/L Lymphocytes % (24.0-44.0) % Monocytes % (0.0-12.0) % Eosinophils % (0.00-5.0) % Basophils % (0.0-0.4) % Absolute Granulocytes (1.4-6.9) x10^3/uL Basophils # (0-0.4) x10^3/uL Puncture Site pCO2 (35-45) mmHg pO2 (75-100) mmHg Base Excess (-2.0-2.0) O2 Saturation (94-100) g/dF ABG pH (7.35-7.45) ABG HCO3 (22-28) ABG O2 Sat (Measured) (95-100) % Rico Test A-a Gradient a/A Ratio Hemoglobin Carboxyhemoglobin (0.0-6.9) % THgb Methemoglobin (1.4-1.5) % Temperature C POC O2 Flow Rate % Sodium (137-145) mmol/L Potassium (3.5-5.1) mmol/L Chloride (98-107) mmol/L Carbon Dioxide (22-30) mmol/L Anion Gap (5-15) MEQ/L BUN (7-17) mg/dL Creatinine (0.52-1.04) mg/dL Estimated GFR ML/MIN Glucose (74-106) mg/dL Calcium (8.4-10.2) mg/dL Total Bilirubin (0.2-1.3) mg/dL AST (14-36) U/L ALT (0-35) U/L Alkaline Phosphatase (38-126) U/L Ammonia 15 (9-30) umol/L Serum Total Protein (6.3-8.2) g/dL Albumin (3.5-5.0) g/dL Radiology Exams: Radiology Procedures Category Date Time Status MODIFIED BARIUM SWALLOW (RAD) [MODIFIED BARIUM SWALLOW Exams 07/06/23 11:00 Co mpleted EXAM] Urgent Multi-Disciplinary Progress Notes: Multi-Disciplinary Progress Notes 07/07/23 10:17 Case Management Note by Sharee Wheeler PATIENT ALERT BUT STILL CONFUSED- FURTHER CASE MANAGEMENT DISCUSSIONS HELD FOR TODAY. PATIENT NORMALLY INDEPENDENT AND LIKELY WILL NOT NEED ANY NEW SERVICES OR EQUIPMENT AT TIME OF DC Initialized on 07/07/23 10:17 - END OF NOTE <SALVADOR COLON - Last Filed: 07/07/23 21:35> Assessment/Plan (1) Sepsis Current Visit: Yes Status: Acute Assessment & Plan: -2/2 to pneumonia -1L fluid bolus given -Repeat lactic downtrending now wnl1.7 <2.8<3.6 -Continue IVF -Blood and urine culture pending -CT chest corresponding with pneumonia in the LLL with tiny effusion/possible aspiration pneumonia -Ceftriaxone/azithromycin started in ED, will continue Zosyn on floor due to the possibility of aspiration -WBC at 26.6 on admission, now at 31.5, will trend -Lovenox -Strict I&O 07/07: -Still meets sepsis criteria, will continue current management with Zosyn -WBC improving 21.6<31.5, continue to trend -Remains afebrile, mildly tachycardic (2) Abdominal pain Current Visit: Yes Status: Acute Assessment & Plan: -Abdominal/pelvis CT with no acute findings -Supportive therapies, zofran, pain meds 07/06: -Resolved Code(s): R10.9 - UNSPECIFIED ABDOMINAL PAIN (3) Left lower lobe pneumonia Current Visit: Yes Status: Acute Assessment & Plan: -CT chest corresponding with pneumonia in the LLL with tiny effusion/possible aspiration pneumonia -Ceftriaxone/azithromycin started in ED, will continue Zosyn on floor due to the possibility of aspiration -WBC at 26.6, will trend -Supplemental oxygen as needed to maintain spo2 > 92%, pt RA at baseline -RT consult -Incentive spirometer -Speech eval due to trouble swallowing/choking on food/drink 07/07: -Barium swallow with minimal pharyngeal dysphagia without aspiration, patient able to maintain regular diet with compensatory strategies such as sitting up for meals, small drinks/bites, and alth solids/liquids Code(s): J18.9 - PNEUMONIA, UNSPECIFIED ORGANISM (4) Hypokalemia Current Visit: No Status: Acute Assessment & Plan: -Potassium 2.9 on presentation, was replenished, repeat pending, will monitor and replace as appropriate -Tele 07/06: -Resolved Code(s): E87.6 - HYPOKALEMIA (5) Hypertension Current Visit: No Status: Chronic Qualifiers: Hypertension type: essential hypertension Assessment & Plan: -Stable (2) Abdominal pain Current Visit: Yes Status: Acute Code(s): R10.9 - UNSPECIFIED ABDOMINAL PAIN (3) Left lower lobe pneumonia Current Visit: Yes Status: Acute Code(s): J18.9 - PNEUMONIA, UNSPECIFIED ORGANISM (4) Hypokalemia Current Visit: No Status: Acute Code(s): E87.6 - HYPOKALEMIA (5) Hypertension Current Visit: No Status: Chronic Qualifiers: Hypertension type: essential hypertension Code(s): I10 - ESSENTIAL (PRIMARY) HYPERTENSION <DAVI KAHN - Last Filed: 07/07/23 10:19> PHAM Encounter - PHAM Encounter Attestation PHAM Encounter Attestation: "IhletitiapersonallysETHEL Strauss andhavediscussed pertinent aspects of their care with Davi Rico agree with the history, physical exam (any modifications based on my personal exam will be noted below), assessment, and plan as outlined in original note. Please see immediately below for my summary of findings and additional assessment and plan along with any meaningful corrections/explanations to the Subjective/Objective portions of the PHAM note will be noted." My portion of the encounter took place via telemedicine. -Feels better today. WBC trending down. Discussed potential discharge tomorrow. <SALVADOR COLON - Last Filed: 07/07/23 21:35>
[2023-07-07 06:01] LABS: Hematocrit 36.5 % (35-47); Hemoglobin 11.5 g/dL (12.0-16.0); Mean Cell Volume 85.9 fL (78-100); Mean Corpuscular Hemoglobin 27.1 pg (26-32); Red Blood Count 4.25 x10^6/uL (4.1-5.4); White Blood Count 21.6 x10^3/uL (4.0-10.5)
[2023-07-07 06:02] LABS: Lymphocytes % 4.6 % (24.0-44.0); Mean Corpuscular Hgb Concent. 31.5 g/dL (32-36); Mean Platelet Volume 11.4 fL (7.5-11.0); Monocytes % 5.3 % (0.0-12.0); Neutrophil % 87.5 % (36.0-66.0); Platelet Count 229 x10^3/uL (150-450); Red Cell Distribution Width 15.3 % (11.5-14.0)
[2023-07-07 06:03] LABS: Absolute Neutrophil Ct (ANC) 18.93 x10^3/uL (1.4-6.9); BASOPHIL % 0.2 % (0.0-0.4); Basophil (Absolute #) 0.04 x10^3/uL (0-0.4); Eosinophil (Absolute #) 0 x10^3/uL (0-0.5); IMMATURE GRAN # 0.52 x10^3u/L (0.00-0.03); IMMATURE GRAN % 2.4 % (0.00-0.4); Monocyte (Absolute #) 1.14 x10^3/uL (0.0-1.3)
[2023-07-07] MEDS ORDERED: Sodium Chloride 3 ML UD NEBULES IH PRN (08:58)
[2023-07-07] MEDS: solu-MEDROL 40 MG, Sterile H2O 10 ml 1 ML IV SCH ×4 (10:33→20:58)
[2023-07-07] MEDS: ENOXAPARIN SODIUM SQ SCH (10:33)
[2023-07-07] MEDS: MYRBETRIQ PO SCH (10:34)
[2023-07-07] MEDS: Toprol-Xl 25MG Tablets PO SCH (10:34)
[2023-07-07] MEDS: Neurontin PO SCH ×4 (10:35→20:56)
[2023-07-07] MEDS ORDERED: ANTIVERT 25 MG PO PRN (14:51)
[2023-07-07] MEDS ORDERED: Ambien 10 MG PO PRN (14:51)
[2023-07-07 15:05] LABS: A-aADO2 68; ABG HEMOGLOBIN 11.8; ARTERIAL BLOOD GAS BASE EXCESS 2.3 (-2.0-2.0); ARTERIAL BLOOD GAS FIO2 28 %; ARTERIAL BLOOD GAS PCO2 43 mmHg (35-45); ARTERIAL BLOOD GAS PO2 78 mmHg (75-100); ARTERIAL BLOOD GAS pH 7.41 (7.35-7.45); CARBOXYHEMOGLOBIN 0.9 % THgb (0.0-6.9); HCO3- 27.3 (22-28); Methhemoglobin 1.2 % (1.4-1.5); paO2 pAO1 0.53
[2023-07-07 15:06] LABS: ABG SITE rt rad; ALLEN TEST OK? yes
[2023-07-07] MEDS ORDERED: MELATONIN PO PRN (15:22)
[2023-07-07] MEDS ORDERED: Xylocaine-Mpf 2% 5 Ml Vial ONE (16:01)
[2023-07-07 16:09] VITALS: TEMP 97.7
[2023-07-07 20:21] VITALS: BP 95/59; PULSE 103; RESP 23; O2SAT 99
[2023-07-07] MEDS ORDERED: solu-MEDROL ONE (20:43)
[2023-07-07] MEDS: Effexor XR 75 MG PO SCH (20:55)
[2023-07-07] MEDS: NORVASC 5 MG PO SCH (20:56)
[2023-07-08] MEDS ORDERED: MYRBETRIQ PO SCH (10:00)
[2023-07-08] MEDS ORDERED: Lopressor 25MG Tab PO SCH (10:00)
--- NOTE | 2023-07-08 10:09 | PCM.DS ---
Discharge Summary Date of Admission: 07/05/23 18:24 Date of Discharge: 07/07/23 Admitting Physician: SALVADOR COLON MD Primary Care Provider: MATT ESPOSITO <DAVI KAHN - Last Filed: 07/08/23 10:03> Date of Admission: 07/05/23 18:24 Admitting Physician: SALVADOR COLON MD Primary Care Provider: MATT ESPOSITO <SALVADOR COLON - Last Filed: 07/08/23 21:12> Allergies <DAVI KAHN - Last Filed: 07/08/23 10:03> <SALVADOR COLON - Last Filed: 07/08/23 21:12> Allergies butorphanol Allergy (Intermediate, Verified 07/05/23 14:34) Hives codeine Allergy (Intermediate, Verified 03/03/23 06:48) Itching latex Allergy (Mild, Verified 03/03/23 06:48) Hives zolmitriptan [From Zomig] Allergy (Mild, Verified 03/03/23 06:48) [facility] ketorolac tromethamine [From Toradol] Allergy (Verified 03/03/23 06:48) Hives ondansetron HCl [From Zofran] Allergy (Verified 03/03/23 06:48) Swelling sumatriptan [From Imitrex] Allergy (Verified 03/03/23 06:48) [facility] Summary - Hospital Course Hospital Course: is a 57 year old female with a pmhx of migraines, peripheral neuropathy, HTN, and MS who presented to ED with complaints of fever, cough, and left lower abdominal pain. CT chest showing left lower lobe opacities and tiny effusion. CT of the abdomen/pelvis with no acute findings. Patient was septic on presentation. She was febrile at 102, tachycardic with HR at 143, WBC at 26.6, lactic at 2.8, pneumonia likely the source. In addition her potassium was noted at 2.9. Patient received a 1L fluid bolus, rocephin, and zithromax in ED. Viral respiratory panel negative. Continued with Zosyn and improving. Patient was having intermittent confusion which was thought to be secondary to diluadid/ambien, these medications were discontinued. RN reported that patient became agitated that she was unable to receive these medications and decided to leave AMA. Risks and consequences of leaving against medical advice were provided to patient by RN. Patient still insisted on leaving. All lines were removed and patient left AMA. - Vitals & Intake/Output Vital Signs: Vital Signs Temperature 97.7 F 07/07/23 20:00 Pulse Rate 103 H 07/07/23 20:00 Respiratory Rate 23 07/07/23 20:00 Blood Pressure 95/59 07/07/23 20:00 O2 Sat by Pulse Oximetry 99 07/07/23 20:00 Intake & Output: Intake & Output 07/05/23 07/06/23 07/07/23 07/08/23 11:59 11:59 11:59 11:59 Intake Total 1634 2380 908 Output Total 350 900 400 Balance 1284 1480 508 Weight 93.4 kg - Lab Result Diagrams: 07/07/23 04:26 07/07/23 04:26 Lab Results-Last 24 Hrs: Lab Results-Last 24 Hours 07/07/23 07/07/23 Range/Units 14:49 17:40 Puncture Site rt rad pCO2 43 (35-45) mmHg pO2 78 (75-100) mmHg Base Excess 2.3 H (-2.0-2.0) O2 Saturation 95.0 (94-100) g/dF ABG pH 7.41 (7.35-7.45) ABG HCO3 27.3 (22-28) ABG O2 Sat (Measured) 97.0 (95-100) % Rico Test yes A-a Gradient 68 a/A Ratio 0.53 Hemoglobin 11.8 Carboxyhemoglobin 0.9 (0.0-6.9) % THgb Methemoglobin 1.2 L (1.4-1.5) % Potassium 4.0 (3.5-5.1) Temperature 37.0 C POC O2 Flow Rate 28 % Ammonia 15 (9-30) umol/L Micro Results-Entire Visit: Microbiology 07/05/23 16:37 Urine Culture - Final Clean Catch Midstream MIXED ISAIAH; 3 OR MORE TYPES. NO PREDOMINANT ORGANISM. NO FURTHER WORKUP. PLEASE RESUBMIT IF CLINICALLY INDICATED. 07/05/23 16:25 Blood Culture - Preliminary Blood 07/05/23 15:30 Blood Culture - Preliminary Blood - Radiology Exams Ordered Rad Exams-Entire Visit: Radiology Procedures Category Date Time Status MODIFIED BARIUM SWALLOW (RAD) [MODIFIED BARIUM SWALLOW Exams 07/06/23 11:00 Completed EXAM] Urgent - Procedures and Test Procedures and Tests throughout Hospitalization: Therapy Orders & Screens 07/05/23 17:21 Oxygen Nasal Cannula 2 lpm Comment: Respiratory Therapy Consult ONCE Comment: Reason For Exam: 07/06/23 05:39 Incentive Spirometry UD Comment: Diagnosis: LLL Pneumonia 07/06/23 05:40 Respiratory Therapy Consult ONCE Comment: Reason For Exam: Diagnosis: LLL Pneumonia 07/06/23 08:57 Speech Therapy Eval & Treat [ST Eval & Treat ( Order)] .as ordered Comment: Physician Instructions: Reason For Exam: Evaluate: aspiration Treat: Yes Reason for Eval: Patient with MS and aspiration pneumonia, states she has trouble swallowing at times/choking Diagnosis: LLL Pneumonia 07/07/23 07:00 Respiratory Therapy Assessment DAILY Comment: Diagnosis: LLL Pneumonia <DAVI KAHN - Last Filed: 07/08/23 10:03> - Vitals & Intake/Output Vital Signs: Vital Signs Temperature 97.7 F 07/07/23 20:00 Pulse Rate 103 H 07/07/23 20:00 Respiratory Rate 23 07/07/23 20:00 Blood Pressure 95/59 07/07/23 20:00 O2 Sat by Pulse Oximetry 99 07/07/23 20:00 Intake & Output: Intake & Output 07/06/23 07/07/23 07/08/23 07/09/23 11:59 11:59 11:59 11:59 Intake Total 1634 2380 908 Output Total 350 900 400 Balance 1284 1480 508 Weight 93.4 kg - Lab Result Diagrams: 07/07/23 04:26 07/07/23 04:26 Micro Results-Entire Visit: Microbiology 07/05/23 16:37 Urine Culture - Final Clean Catch Midstream MIXED ISAIAH; 3 OR MORE TYPES. NO PREDOMINANT ORGANISM. NO FURTHER WORKUP. PLEASE RESUBMIT IF CLINICALLY INDICATED. 07/05/23 16:25 Blood Culture - Preliminary Blood 07/05/23 15:30 Blood Culture - Preliminary Blood - Procedures and Test Procedures and Tests throughout Hospitalization: Therapy Orders & Screens 07/05/23 17:21 Oxygen Nasal Cannula 2 lpm Comment: Respiratory Therapy Consult ONCE Comment: Reason For Exam: 07/06/23 05:39 Incentive Spirometry UD Comment: Diagnosis: LLL Pneumonia 07/06/23 05:40 Respiratory Therapy Consult ONCE Comment: Reason For Exam: Diagnosis: LLL Pneumonia 07/06/23 08:57 Speech Therapy Eval & Treat [ST Eval & Treat (MD Order)] .as ordered Comment: Physician Instructions: Reason For Exam: Evaluate: aspiration Treat: Yes Reason for Eval: Patient with MS and aspiration pneumonia, states she has trouble swallowing at times/choking Diagnosis: LLL Pneumonia 07/07/23 07:00 Respiratory Therapy Assessment DAILY Comment: Diagnosis: LLL Pneumonia <SALVADOR COLON - Last Filed: 07/08/23 21:12> Final Diagnosis/Problem List - Final Discharge Diagnosis/Problem (1) Sepsis Status: Acute (2) Abdominal pain Status: Acute Code(s): R10.9 - UNSPECIFIED ABDOMINAL PAIN (3) Left lower lobe pneumonia Status: Acute Code(s): J18.9 - PNEUMONIA, UNSPECIFIED ORGANISM (4) Hypokalemia Status: Acute Code(s): E87.6 - HYPOKALEMIA (5) Hypertension Status: Chronic Code(s): I10 - ESSENTIAL (PRIMARY) HYPERTENSION <DAVI KAHN - Last Filed: 07/08/23 10:03> <DAVI KAHN - Last Filed: 07/08/23 10:03> <SALVADOR COLON - Last Filed: 07/08/23 21:12> - Discharge Disposition: Against Medical Advice Condition: Stable Prescriptions: No Action Gabapentin 800 mg PO QID Zolpidem Tartrate [Ambien] 10 mg PO HSPRN PRN PRN Reason: Insomnia Venlafaxine HCl [Effexor Xr] 150 mg PO QHS Mirabegron [Myrbetriq] 50 mg PO DAILY Amlodipine Besylate 5 mg [Norvasc 5 mg] 5 mg PO HS Metoprolol Tartrate 25 mg [Lopressor 25MG Tab] 25 mg PO BID Cyclobenzaprine HCl 10 mg [Cyclobenzaprine 10 MG] 10 mg PO TIDPRN PRN PRN Reason: Muscle Spasms Meclizine HCl 12.5 mg PO Q6HPRN PRN PRN Reason: Dizziness Follow up with: MATT ESPOSITO [Primary Care Provider] - PHAM Encounter - PHAM Encounter Attestation PHAM Encounter Attestation: "IhavepersonallyseenETHEL Valverde andhavediscussed pertinent aspects of their care with Jignesh Rico agree with the history, physical exam (any modifications based on my personal exam will be noted below), assessment, and plan as outlined in original note. Please see immediately below for my summary of findings and additional assessment and plan along with any meaningful corrections/explanations to the Subjective/Objective portions of the PHAM note will be noted." My portion of the encounter took place via telemedicine. <SALVADOR COLON - Last Filed: 07/08/23 21:12>
== END 2023-07-07 22:40 | disposition left against medical advice (07) ==
LOC: ED 14:19 → MED SURG 18:24
PROVIDERS: ADMIT Internal Medicine; ATTEND Internal Medicine
DX: J18.9 Pneumonia, unspecified organism (principal); I10 Essential (primary) hypertension; A41.9 Sepsis, unspecified organism; R10.9 Unspecified abdominal pain; E87.6 Hypokalemia; F17.200 Nicotine dependence, unspecified, uncomplicated; Z79.899 Other long term (current) drug therapy; Z20.828 Contact with and (suspected) exposure to other viral communicable diseases
CPT/HCPCS: 0241U; 36000; 36415; 36600; 71260; 74177; 74230; 80053; 81001; 82140; 82375; 82803; 83605; 83690; 84484; 85025; 87040; 87086; 92611; 93005; 93041; 94640; 94762; 96360; 96365; 96374; 96376; 99285; Q3014; J0456; J0696; J1170; J1650; J2920; J3010; A9270-GY